=== PATIENT | male | born 1945 | race Caucasian/White ===

== ENCOUNTER 2019-11-18 15:05 | Outpatient (CLI) | payer OTHER | END 2019-11-18 15:06 | disposition short-term general hospital (02) | LOC: EMS 15:05 | PROVIDERS: ATTEND Surgery | DX: S09.90XA Unspecified injury of head, initial encounter (principal); R41.82 Altered mental status, unspecified; W19.XXXA Unspecified fall, initial encounter | CPT/HCPCS: A0425; A0429 ==

== ENCOUNTER 2020-09-11 10:21 | Emergency (ER) | payer OTHER ==
[2020-09-11 11:23] VITALS: BP 130/80
[2020-09-11 11:24] LABS: MUDS CUTOFF CONCENTRATIONS CUTOFF CONC BELOW:
[2020-09-11 11:26] LABS: BASOPHILS # (AUTO) 0.1 10^3/uL (0.0-0.1); BASOPHILS % (AUTO) 0.6 %; EOSINOPHILS # (AUTO) 0.3 10^3/uL (0.0-0.7); EOSINOPHILS % (AUTO) 2.1 %; HGB - HEMOGLOBIN 16.8 g/dL (14.0-18.0); LYMPHOCYTES % (AUTO) 7.5 %; MEAN CORPUSCULAR HEMOGLOBIN 32.4 pg (27.0-31.0); MEAN CORPUSCULAR HGB CONC 34.4 g/dL (32.0-36.0); MEAN PLATELET VOLUME 9.1 fL (7.4-11.4); MONOCYTES # (AUTO) 1.3 10^3/uL (0.0-1.0); MONOCYTES % (AUTO) 10.2 %; NEUTROPHILS % (AUTO) 79.1 %; PLT - PLATELET COUNT 174 10^3/uL (130-450); RED BLOOD COUNT 5.19 10^6/uL (4.70-6.10); RED CELL DISTRIBUTION WIDTH 11.9 % (12.0-15.0); WHITE BLOOD COUNT 12.6 x10^3/uL (4.8-10.8)
[2020-09-11 11:28] LABS: BILIRUBIN,URINE NEGATIVE (NEGATIVE); GLUCOSE, URINE (UA) NEGATIVE (NEGATIVE); KETONES,URINE (UA) NEGATIVE (NEGATIVE); LEUKOCYTE ESTERASE, URINE NEGATIVE (NEGATIVE); NITRITE,URINE NEGATIVE (NEGATIVE); OCCULT BLOOD,URINE NEGATIVE (NEGATIVE); PH,URINE 6.5 PH (5.0-7.5); PROTEIN,URINE NEGATIVE (NEGATIVE); UROBILINOGEN,URINE 0.2 (NORMAL) E.U./dL (NORMAL)
[2020-09-11 11:33] LABS: CLARITY,URINE CLEAR (CLEAR)
[2020-09-11 11:37] LABS: AMPHETAMINE SCREEN,URINE NEGATIVE (NEGATIVE); BENZODIAZEPINES SCREEN, URINE NEGATIVE (NEGATIVE); COCAINE SCREEN URINE NEGATIVE (NEGATIVE); METHADONE SCREEN, URINE NEGATIVE (NEGATIVE); METHAMPHETAMINES SCREEN, URINE NEGATIVE (NEGATIVE); OPIATE SCREEN, URINE NEGATIVE (NEGATIVE); OXYCODONE SCREEN, URINE NEGATIVE (NEGATIVE); PROPOXYPHENE SCREEN, URINE NEGATIVE (NEGATIVE); TRICYCLIC ANTIDEPRESSANT,URINE NEGATIVE (NEGATIVE)
[2020-09-11 11:46] LABS: ACETAMINOPHEN < 10 ug/mL (10-30); ALBUMIN 4.2 g/dL (3.2-5.5); ALBUMIN/GLOBULIN RATIO 1.1 (1.0-2.2); ALKALINE PHOSPHATASE 91 IU/L (42-121); ALT ALANINE AMINOTRANSFERASE 19 IU/L (10-60); AST ASPARTATE AMINOTRANSFERASE 29 IU/L (10-42); BILIRUBIN,TOTAL 0.9 mg/dL (0.2-1.0); BUN - BLOOD UREA NITROGEN 12 mg/dL (6-20); CALCIUM 9.6 mg/dL (8.5-10.3); CARBON DIOXIDE - CO2 28 mmol/L (21-32); CHLORIDE 96 mmol/L (101-111); CREATININE 1.1 mg/dL (0.6-1.2); GLUCOSE 98 mg/dL (70-100); LIPASE 37 U/L (22-51); SALICYLATE < 6.0 mg/dL; SODIUM 137 mmol/L (135-145); TOTAL PROTEIN 8.2 g/dL (6.7-8.2)
--- NOTE | 2020-09-11 12:31 | ED Physician Documentation ---
History of Present Illness - Stated complaint Stated Complaint: MHE - Chief complaint Chief Complaint: MHE - History obtained from History obtained from: Patient - Additonal information Additional information: 75-year-old man with past medical history of depression, PTSD presents with passive suicidal ideation over the past couple days. He states that his was just in the hospital last week and initially they thought she was not going to live, however she was able to be discharged home. During her hospitalization he stayed up with her and did not sleep adequately at night for the past 4 days. After discharge he continued to have difficulty sleeping. He also is endorsing thought disturbances with persistent anxiety and depression, feeling Like he wants to but without any active plan. He says that he had these thoughts in the past and that his mental health professional advised to take their firearms from the home which they did. Patient denies AVH or homicidal ideation. Denies any other symptoms. Review of Systems Ten Systems: 10 systems reviewed and negative Psychiatric: reports: Depressed, Suicidal PD PAST MEDICAL HISTORY - Past Medical History Past Medical History: Yes Cardiovascular: Hypertension, High cholesterol Psych: Post traumatic stress disorder - Past Surgical History Past Surgical History: Yes General: Other Cardiovascular: Coronary stent - Present Medications Home Medications: Ambulatory Orders Medication Instructions Recorded Confirmed Aspirin [Aspir-Low] 81 mg PO DAILY 11/18/15 09/11/20 Atorvastatin Calcium 80 mg PO DAILY 11/18/15 09/11/20 Calcium Citrate/Vitamin D3 [[facility] 1 tab PO BID 11/18/15 09/11/20 Calcium Citrate-Vit D Tab] Citalopram [CeleXA] 40 mg PO DAILY 11/18/15 09/11/20 Levetiracetam [Keppra] 750 mg PO BID 11/18/15 09/11/20 Metoprolol Tartrate 12.5 mg PO BID 11/18/15 09/11/20 Omeprazole 20 mg PO DAILY 11/18/15 09/11/20 lisinopriL [Lisinopril] 5 mg PO DAILY 11/18/15 09/11/20 Meclizine [Antivert] 25 mg PO Q6H PRN #20 tablet 11/19/15 09/11/20 Clobetasol 0.05% Oint [Temovate 1 applic TOP PRN PRN 09/11/20 09/11/20 0.05% Oint] Ibuprofen [Motrin] 600 mg PO Q6H PRN 09/11/20 09/11/20 Melatonin/Pyridoxine [Melatonin 5 1 each PO QPM PRN 30 Days #30 09/11/20 mg Tablet] tablet Sildenafil Citrate [Viagra] 100 mg PO ONCE PRN 09/11/20 09/11/20 Simethicone [Gas Relief] 180 mg PO PRN PRN 09/11/20 09/11/20 Sodium Fluoride [Prevident 5000] 1 applic TOP DAILY PM 09/11/20 09/11/20 - Allergies Allergies/Adverse Reactions: Allergies Allergy/AdvReac Type Severity Reaction Status Date / Time fluoxetine AdvReac Anxiety Verified 09/11/20 10:39 oxycodone HCl * AdvReac Hallucinati Verified 09/11/20 10:39 [From OxyContin] ons - Social History Does the pt smoke?: No Smoking Status: Never smoker Does the pt drink ETOH?: No Does the pt have substance abuse?: Yes - Immunizations Immunizations are current?: Yes - POLST Patient has POLST: Yes PD ED PE NORMAL - Vitals Vital signs reviewed: Yes - General General: Alert and oriented X 3 - HEENT HEENT: Atraumatic, PERRL, EOMI - Neck Neck: Supple, no meningeal sign - Cardiac Cardiac: RRR - Respiratory Respiratory: No respiratory distress, Clear bilaterally - Abdomen Abdomen: Non tender, Non distended - Male Male : Deferred - Rectal Rectal: Deferred - Derm Derm: Normal color - Extremities Extremities: No edema - Neuro Neuro: Alert and oriented X 3 - Psych Psych: Other (good insight. normal affect. mood described as depressed) Results - Vitals Vitals: Vital Signs - 24 hr 09/11/20 09/11/20 10:25 10:38 Temperature 36.0 C L Heart Rate 75 76 Respiratory 16 15 Rate Blood Pressure 134/80 H 130/80 O2 Saturation 96 99 Oxygen O2 Source Room air - EKG (time done) 1142 Rate: Rate (enter#) (71) Rhythm: NSR Intervals: Normal [place] QRS: Normal Ischemia: Other (benign early repol) - Labs Labs: Laboratory Tests 09/11/20 09/11/20 09/11/20 11:13 11:20 11:20 WBC 12.6 H RBC 5.19 Hgb 16.8 Hct 48.8 MCV 94.0 MCH 32.4 H MCHC 34.4 RDW 11.9 L Plt Count 174 MPV 9.1 Neut # (Auto) 10.0 H Lymph # (Auto) 1.0 L [place] # (Auto) 1.3 H Eos # (Auto) 0.3 Baso # (Auto) 0.1 Absolute Nucleated RBC 0.00 Nucleated RBC % 0.0 Sodium 137 Potassium 4.2 Chloride 96 L Carbon Dioxide 28 Anion Gap 13.0 BUN 12 Creatinine 1.1 Estimated GFR (MDRD) 65 L Glucose 98 Calcium 9.6 Total Bilirubin 0.9 AST 29 ALT 19 Alkaline Phosphatase 91 Total Protein 8.2 Albumin 4.2 Globulin 4.0 Albumin/Globulin Ratio 1.1 Lipase 37 TSH Urine Color DARK YELLOW Urine Clarity CLEAR Urine pH 6.5 Ur Specific [place] 1.020 Urine Protein NEGATIVE Urine Glucose (UA) NEGATIVE Urine Ketones NEGATIVE Urine Occult Blood NEGATIVE Urine Nitrite NEGATIVE Urine Bilirubin NEGATIVE Urine Urobilinogen 0.2 (NORMAL) Ur Leukocyte Esterase NEGATIVE Ur Microscopic Review NOT INDICATED Urine Culture Comments NOT INDICATED Salicylates < 6.0 Urine Opiates Screen NEGATIVE Ur Oxycodone Screen NEGATIVE Urine Methadone Screen NEGATIVE Ur Propoxyphene Screen NEGATIVE Acetaminophen < 10 L Ur Barbiturates Screen NEGATIVE Ur Tricyclics Screen NEGATIVE Ur Phencyclidine Scrn NEGATIVE Ur Amphetamine Screen NEGATIVE U Methamphetamines Scrn NEGATIVE U Benzodiazepines Scrn NEGATIVE Urine Cocaine Screen NEGATIVE U Cannabinoids Screen NEGATIVE Ethyl Alcohol < 5.0 09/11/20 11:20 WBC RBC Hgb Hct MCV MCH MCHC RDW Plt Count MPV Neut # (Auto) Lymph # (Auto) [place] # (Auto) Eos # (Auto) Baso # (Auto) Absolute Nucleated RBC Nucleated RBC % Sodium Potassium Chloride Carbon Dioxide Anion Gap BUN Creatinine Estimated GFR (MDRD) Glucose Calcium Total Bilirubin AST ALT Alkaline Phosphatase Total Protein Albumin Globulin Albumin/Globulin Ratio Lipase TSH 1.16 Urine Color Urine Clarity Urine pH Ur Specific [place] Urine Protein Urine Glucose (UA) Urine Ketones Urine Occult Blood Urine Nitrite Urine Bilirubin Urine Urobilinogen Ur Leukocyte Esterase Ur Microscopic Review Urine Culture Comments Salicylates Urine Opiates Screen Ur Oxycodone Screen Urine Methadone Screen Ur Propoxyphene Screen Acetaminophen Ur Barbiturates Screen Ur Tricyclics Screen Ur Phencyclidine Scrn Ur Amphetamine Screen U Methamphetamines Scrn U Benzodiazepines Scrn Urine Cocaine Screen U Cannabinoids Screen Ethyl Alcohol PD MEDICAL DECISION MAKING - ED course ED course: 75-year-old man with history of PTSD on citalopram presented with suicidal ideat ion without a plan. Discussed at length with social work who provided extensive resources for outpatient counseling. Patient endorsing that he thinks this is all related to insomnia. Will give prescription for melatonin. Strict return precautions given. Patient contracts for safety and there are no firearms in the home. Follow-up outpatient mental health. Departure - Departure Disposition: Home, Self Care Clinical Impression: Depression, PTSD (post-traumatic stress disorder), Sleep deprivation Condition: Good Instructions: ED Depression Prescriptions: Melatonin/Pyridoxine [Melatonin 5 mg Tablet] 1 each PO QPM PRN 30 Days #30 tablet PRN Reason: Insomnia
== END 2020-09-11 13:50 | disposition home or self-care (01) ==
LOC: ED 10:21
DX: F32.9 Major depressive disorder, single episode, unspecified (principal); R45.851 Suicidal ideations; F43.10 Post-traumatic stress disorder, unspecified; F41.9 Anxiety disorder, unspecified; Z72.820 Sleep deprivation; I10 Essential (primary) hypertension; Z79.82 Long term (current) use of aspirin
CPT/HCPCS: 36415; 80053; 80306; 80307; 80320; 80329; 81001; 81003; 83690; 84443; 85025; 87086; 93005; 99281; 99283

== ENCOUNTER 2020-11-06 11:58 | Outpatient (CLI) | payer OTHER | END 2020-11-06 11:59 | disposition critical access hospital (66) | LOC: EMS 11:58 | PROVIDERS: ATTEND Emergency Medicine | DX: R13.10 Dysphagia, unspecified (principal) | CPT/HCPCS: A0425; A0429 ==

== ENCOUNTER 2020-11-06 12:20 | Emergency (ER) | payer OTHER ==
[2020-11-06] MEDS ORDERED: SODIUM CHLORIDE 0.9% 1,000 ML IV STA (12:27)
--- NOTE | 2020-11-06 12:29 | ED Physician Documentation ---
PD HPI CHEST PAIN - Stated complaint Stated Complaint: HARD TIME SWALLOWING - History obtained from History obtained from: Patient, EMS - Additional information Additional information: Progressively for the last 5 days this 75-year-old gentleman has had difficulty swallowing. He has a history of coronary disease with stenting, seizure disorder with no recent seizures, hypertension and hypercholesterolemia. He also has reflux. He was hospitalized for about a week at the [facility] may be a month ago, for presumed suicidal ideation. He has been under a lot of stress about that and related to his . For the last 5 days he feels like after he swallows anything, and it does not matter what, he feels like it gets stuck in the anterior left chest and he feels like he has to burp but cannot. There is no associated vomiting. He is scared to eat. Denies current chest pain or trouble breathing. No abdominal pain. He does have a history of reflux and GERD. Does not recall if he is ever had an upper endoscopy. Review of Systems Ten Systems: 10 systems reviewed and negative Constitutional: denies: Fever, Chills Cardiac: denies: Palpitations Respiratory: denies: Dyspnea, Cough GI: denies: Abdominal Pain, Nausea PD PAST MEDICAL HISTORY - Past Medical History Cardiovascular: Hypertension, High cholesterol Psych: Post traumatic stress disorder - Past Surgical History Past Surgical History: Yes General: Other Cardiovascular: Coronary stent - Present Medications Home Medications: Ambulatory Orders Medication Instructions Recorded Confirmed Aspirin [Aspir-Low] 81 mg PO DAILY 11/18/15 09/11/20 Atorvastatin Calcium 80 mg PO DAILY 11/18/15 09/11/20 Calcium Citrate/Vitamin D3 [[facility] 1 tab PO BID 11/18/15 09/11/20 Calcium Citrate-Vit D Tab] Citalopram [CeleXA] 40 mg PO DAILY 11/18/15 09/11/20 Levetiracetam [Keppra] 750 mg PO BID 11/18/15 09/11/20 Metoprolol Tartrate 12.5 mg PO BID 11/18/15 09/11/20 Omeprazole 20 mg PO DAILY 11/18/15 09/11/20 lisinopriL [Lisinopril] 5 mg PO DAILY 11/18/15 09/11/20 Meclizine [Antivert] 25 mg PO Q6H PRN #20 tablet 11/19/15 09/11/20 Clobetasol 0.05% Oint [Temovate 1 applic TOP PRN PRN 09/11/20 09/11/20 0.05% Oint] Ibuprofen [Motrin] 600 mg PO Q6H PRN 09/11/20 09/11/20 Melatonin/Pyridoxine [Melatonin 5 1 each PO QPM PRN 30 Days #30 09/11/20 mg Tablet] tablet Sildenafil Citrate [Viagra] 100 mg PO ONCE PRN 09/11/20 09/11/20 Simethicone [Gas Relief] 180 mg PO PRN PRN 09/11/20 09/11/20 Sodium Fluoride [Prevident 5000] 1 applic TOP DAILY PM 09/11/20 09/11/20 LORazepam [Ativan] 1 mg PO TID PRN #12 tab 11/06/20 - Allergies Allergies/Adverse Reactions: Allergies Allergy/AdvReac Type Severity Reaction Status Date / Time fluoxetine AdvReac Anxiety Verified 11/06/20 12:32 oxycodone HCl * AdvReac Hallucinati Verified 11/06/20 12:32 [From OxyContin] ons - Social History Does the pt smoke?: No Smoking Status: Never smoker Does the pt drink ETOH?: No Does the pt have substance abuse?: Yes - Immunizations Immunizations are current?: Yes - POLST Patient has POLST: Yes PD ED PE NORMAL - Vitals Vital signs reviewed: Yes - General General: Alert and oriented X 3, No acute distress - HEENT HEENT: PERRL, EOMI - Neck Neck: Supple, no meningeal sign, No bony TTP - Cardiac Cardiac: RRR, No murmur - Respiratory Respiratory: No respiratory distress, Clear bilaterally - Abdomen Abdomen: Soft, Non tender - Back Back: No CVA TTP, No spinal TTP - Derm Derm: Normal color, Warm and dry - Extremities Extremities: No edema, No calf tenderness / cord - Neuro Neuro: Alert and oriented X 3, Normal speech Results - Vitals Vitals: Vital Signs - 24 hr 11/06/20 11/06/20 11/06/20 12:32 12:34 12:48 Temperature 37.3 C 37.3 C Heart Rate 100 100 88 Respiratory 16 16 18 Rate Blood Pressure 129/100 H 129/100 H 111/85 H O2 Saturation 99 99 95 11/06/20 14:34 Temperature Heart Rate 70 Respiratory 16 Rate Blood Pressure 124/82 H O2 Saturation 99 Oxygen O2 Source Room air - EKG (time done) 1229 Rate: Rate (enter#) (88) Rhythm: NSR [place]: Normal Intervals: Normal [place] QRS: Normal Ischemia: Non specific changes Compare to prior EKG: Other (Appears to be J-point elevation that does not look ischemic in the anterior leads. Compared with EKG dated 09/11/2020 this is slightly increased, but looking at the different R wave progression this is likely due to lead placement.) Computer interpretation: Agree with computer - Labs Labs: Laboratory Tests 11/06/20 11/06/20 11/06/20 13:35 13:35 13:35 WBC 7.2 RBC 4.86 Hgb 15.3 Hct 46.0 MCV 94.7 H MCH 31.5 H MCHC 33.3 RDW 12.3 Plt Count 174 MPV 9.3 Neut # (Auto) 5.3 Lymph # (Auto) 1.1 L [place] # (Auto) 0.7 Eos # (Auto) 0.1 Baso # (Auto) 0.1 Absolute Nucleated RBC 0.00 Nucleated RBC % 0.0 Sodium 135 Potassium 3.8 Chloride 102 Carbon Dioxide 25 Anion Gap 8.0 BUN 11 Creatinine 0.9 Estimated GFR (MDRD) 82 L Glucose 87 Calcium 8.6 Total Bilirubin 0.9 AST 23 ALT 16 Alkaline Phosphatase 74 Troponin I High Sens 10.7 Total Protein 6.8 Albumin 3.7 Globulin 3.1 Albumin/Globulin Ratio 1.2 PD MEDICAL DECISION MAKING - ED course ED course: 75-year-old gentleman with history of tobacco abuse has had odynophagia with a sensation of having to burp after eating or taking his pills for the last several days. His examination is normal, and his labs do not suggest any significant dehydration or coronary insult. CT of the chest was done without obvious pathology of the esophagus, he did have incidental findings which were discussed with him and the need for follow-up was stressed. He will need to have an upper endoscopy and requests admission to the hospital to have this done but there is no indication for admission to the hospital or need for anything other than outpatient follow-up at this point. There is a large overlay of anxiety for which he is treated with Ativan as well. Departure - Departure Disposition: 01 Home, Self Care Clinical Impression: Odynophagia, Pulmonary nodule, Anxiety Condition: Good Record reviewed to determine appropriate education?: Yes Instructions: Dysphagia Tx Follow-Up: Juan Alberto Martinez MD [Provider Admit Priv/Credential] - Prescriptions: LORazepam [Ativan] 1 mg PO TID PRN #12 tab PRN Reason: Anxiety Comments: Your labs look good without any evidence of dehydration. Your CAT scan shows some pulmonary nodules, you need a repeat CAT scan in 6 months to reassess. Otherwise you do need to follow-up for an upper endoscopy and the on-call surgeon is listed on this form, call tomorrow for an appointment. Return if worsening.
[2020-11-06] MEDS ORDERED: IOVERSOL 320 100 ML VIAL IVP ONE ×2 (12:43→14:36)
[2020-11-06] MEDS ORDERED: IOPAMIDOL-300 50 ML VIAL ONE (12:43)
[2020-11-06 13:45] LABS: BASOPHILS # (AUTO) 0.1 10^3/uL (0.0-0.1); BASOPHILS % (AUTO) 0.7 %; EOSINOPHILS # (AUTO) 0.1 10^3/uL (0.0-0.7); EOSINOPHILS % (AUTO) 1.8 %; HGB - HEMOGLOBIN 15.3 g/dL (14.0-18.0); LYMPHOCYTES # (AUTO) 1.1 10^3/uL (1.5-3.5); LYMPHOCYTES % (AUTO) 14.5 %; MEAN CORPUSCULAR HEMOGLOBIN 31.5 pg (27.0-31.0); MEAN CORPUSCULAR HGB CONC 33.3 g/dL (32.0-36.0); MEAN CORPUSCULAR VOLUME 94.7 fL (80.0-94.0); MEAN PLATELET VOLUME 9.3 fL (7.4-11.4); MONOCYTES # (AUTO) 0.7 10^3/uL (0.0-1.0); NEUTROPHILS # (AUTO) 5.3 10^3/uL (1.5-6.6); NEUTROPHILS % (AUTO) 73.7 %; PLT - PLATELET COUNT 174 10^3/uL (130-450); RED BLOOD COUNT 4.86 10^6/uL (4.70-6.10); RED CELL DISTRIBUTION WIDTH 12.3 % (12.0-15.0); WHITE BLOOD COUNT 7.2 x10^3/uL (4.8-10.8)
[2020-11-06 13:56] LABS: ALBUMIN 3.7 g/dL (3.2-5.5); ALBUMIN/GLOBULIN RATIO 1.2 (1.0-2.2); BILIRUBIN,TOTAL 0.9 mg/dL (0.2-1.0); CALCIUM 8.6 mg/dL (8.5-10.3); CREATININE 0.9 mg/dL (0.6-1.2); TOTAL PROTEIN 6.8 g/dL (6.7-8.2)
[2020-11-06] MEDS ORDERED: IOPAMIDOL-300 50 ML VIAL PO ONE (14:36)
--- NOTE | 2020-11-06 15:24 | CT Report ---
PROCEDURE: CHEST W INDICATIONS: IV and PO just before scan, CP, diff swallowing CONTRAST: IV CONTRAST: Optiray 320 ml: 100 PO CONTRAST: Isovue 300 ml50 TECHNIQUE: After the administration of intravenous contrast, 5 mm thick sections acquired from the pulmonary api demarco to the posterior costophrenic angles. 7 mm thick coronal MIP reformats were acquired. For radia tion dose reduction, the following was used: automated exposure control, adjustment of mA and/or kV according to patient size. COMPARISON: Single view chest x-ray 01/26/2011. FINDINGS: Image quality: Excellent. Lungs and pleura: No consolidation. 1.0 cm groundglass nodule noted in the right upper lobe. No pleur al effusions or pneumothorax. Central and peripheral airways are patent and normal in caliber. Mediastinum: Heart size is normal. Atherosclerotic calcifications noted in the aorta, great vessels and coronary vasculature. 7 mm subpleural nodule noted in the lateral aspect of the lingula of left u pper lobe. Atelectasis noted in the dependent portion of the bases bilaterally. No pericardial effusi on. No mediastinal or hilar adenopathy by size criteria. Thoracic aorta and central pulmonary arter ies are normal in size. Esophagus is normal in caliber. No hiatal hernia. Bones and chest wall: No suspicious bony lesions. No vertebral body compression fractures. Spine de generative disc disease and facet arthropathy are noted. No axillary or supraclavicular adenopathy b y size criteria. Thyroid gland is normal. Abdomen: Left renal cysts. Diffuse fatty infiltration of the visualized liver. Visualized upper abdo donell solid organs otherwise appear normal. Upper abdominal bowel loops are normal in caliber. IMPRESSION: 1. No lung consolidation or pleural effusions. 2. 1 cm groundglass nodule in the right upper lobe which could be inflammatory/infectious or neoplast ic. Recommend repeat CT scan of the chest in 6-12 months based on criteria outlined below. 3. 7 mm solid nodule in the lingula of the left upper lobe. Recommend reevaluation at time of follow- up CT scan. 4. Atherosclerosis including dense atherosclerotic calcifications in the coronary vascula ture. 5. Hepatic steatosis. 6. Left renal cysts. 7. Atherosclerosis including dense atherosclerotic calcifications of the coronary vasculature. Fleischner Society criteria for lung nodule followup. Solid nodules Solitary nodule size: <6 mm * low risk patients: no follow-up needed * high risk patients: optional CT at 12 months Solitary nodule size: 6-8 mm * low risk patients: follow-up at 6-12 months, then consider further follow-up at 18-24 months * high risk patients: initial follow-up CT at 6-12 months and then at 18-24 months if no change Solitary nodule size: >8 mm * either low or high risk patients * consider follow-up CT at 3 months, and/or CT-PET, and/or biopsy Multiple nodules size: <6 mm * low risk patients: no routine follow-up * high risk patients: optional CT at 12 months Multiple nodules size: 6-8 mm * low risk patients: follow-up at 3-6 months, then consider further follow-up at 18-24 months * high risk patients: follow-up at 3-6 months, then at 18-24 months if no change Multiple nodules size: >8 mm * low risk patients: follow-up at 3-6 months, then consider further follow-up at 18-24 months * high risk patients: follow-up at 3-6 months, then at 18-24 months if no change Subsolid nodules Solitary pure ground-glass nodule * nodule size <6mm * no CT follow-up required * nodule size ?6mm * follow up CT at 6-12 months, then every 2 years until 5 years Solitary part-solid nodule * nodule size <6mm * no CT follow-up required * nodule size ?6mm * follow-up CT at 3-6 months * if unchanged, and solid component remains <6mm, then annual follow-up for 5 years Multiple subsolid nodules * nodule size <6mm * follow-up CT at 3-6 months * consider further follow-up at 2 and 4 years if stable * nodule size ?6mm * follow-up CT at 3-6 months * subsequent management based on the most suspicious nodule(s) Recommendations do not apply to lung cancer screening, patient's with immunosuppression or patients w ith known primary cancer. Reviewed by: Oly Roberts MD, PhD on 11/06/2020 3:23 PM PST Approved by: Oly Roberts MD, PhD on 11/06/2020 3:23 PM PST Station ID: [id number]
[2020-11-06] MEDS ORDERED: LORazepam 1 MG TABLET PO STA (15:58)
[2020-11-06 16:10] VITALS: BP 140/68
== END 2020-11-06 16:30 | disposition home or self-care (01) ==
LOC: EDUNIT# → ED 12:20
DX: R13.10 Dysphagia, unspecified (principal); R91.8 Other nonspecific abnormal finding of lung field; F41.9 Anxiety disorder, unspecified; I10 Essential (primary) hypertension; I25.10 Atherosclerotic heart disease of native coronary artery without angina pectoris; Z95.5 Presence of coronary angioplasty implant and graft; E78.00 Pure hypercholesterolemia, unspecified; K21.9 Gastro-esophageal reflux disease without esophagitis; G40.909 Epilepsy, unspecified, not intractable, without status epilepticus; Z87.891 Personal history of nicotine dependence; Z79.82 Long term (current) use of aspirin
CPT/HCPCS: 36415; 71260; 80053; 84484; 85025; 93005; 99284; J8499; Q9967

== ENCOUNTER 2020-11-18 10:20 | Emergency (ER) | payer OTHER ==
[2020-11-18 10:35] VITALS: BP 125/80
[2020-11-18 11:12] LABS: BASOPHILS # (AUTO) 0.1 10^3/uL (0.0-0.1); BASOPHILS % (AUTO) 0.8 %; EOSINOPHILS # (AUTO) 0.2 10^3/uL (0.0-0.7); EOSINOPHILS % (AUTO) 2.7 %; HCT - HEMATOCRIT 42.9 % (42.0-52.0); HGB - HEMOGLOBIN 14.8 g/dL (14.0-18.0); LYMPHOCYTES % (AUTO) 14.6 %; MEAN CORPUSCULAR HEMOGLOBIN 32.6 pg (27.0-31.0); MEAN CORPUSCULAR HGB CONC 34.5 g/dL (32.0-36.0); MEAN CORPUSCULAR VOLUME 94.5 fL (80.0-94.0); MEAN PLATELET VOLUME 9.4 fL (7.4-11.4); MONOCYTES # (AUTO) 0.6 10^3/uL (0.0-1.0); MONOCYTES % (AUTO) 8.7 %; NEUTROPHILS # (AUTO) 5.2 10^3/uL (1.5-6.6); NEUTROPHILS % (AUTO) 72.8 %; PLT - PLATELET COUNT 177 10^3/uL (130-450); RED BLOOD COUNT 4.54 10^6/uL (4.70-6.10); RED CELL DISTRIBUTION WIDTH 12.2 % (12.0-15.0); WHITE BLOOD COUNT 7.1 x10^3/uL (4.8-10.8)
--- NOTE | 2020-11-18 11:15 | ED Physician Documentation ---
PD HPI NVD - Stated complaint Stated Complaint: UNABLE TO EAT - Chief complaint Chief Complaint: Abd Pain - History obtained from History obtained from: Patient, Family - History of Present Illness Timing - onset: How many months ago (3) Timing - duration: Months (3) Timing - details: Gradual onset, Still present (worse the past week.) Associated symptoms: Chest pain (states has tightness and discomfort when trying to eat or even drink fluids.), Weight loss (he states lost 60 lbs over the past 3 months.). No: Fever, Abdominal pain Contributing factors: No: Sick contact, Bad food, Diabetes Improved by: No: Eating, Meds (had done enema at home, with some mild stool out (firm chunk, but feeling that there is still some at rectum).) Worsened by: Eating Similar symptoms before: Has not had sx before Recently seen: Emergency Dept (seen in ER with CT chest without soft tissue findings. Seen in follow up at Surgery, Dr. Manzano, and is schedules for barium swallow on and EGD on of this month.) Review of Systems Constitutional: denies: Fever, Chills Nose: denies: Rhinorrhea / runny nose, Congestion Throat: denies: Sore throat Cardiac: reports: Chest pain / pressure (with eating in lower substernal area.). denies: Palpitations Respiratory: denies: Dyspnea, Cough GI: reports: Nausea, Vomiting, Constipation (for the past month). denies: Abdominal Pain, Diarrhea Neurologic: reports: Generalized weakness. denies: Near syncope, Altered mental status Psychiatric: reports: Depressed (feeling stress with his having been in hospital then care facility for rehab the past few months. home recently and is also stressed of caring for her. No home health aides. Has home visint nurse couple times per week (for his ).), Anxiety, Insomnia Endocrine: reports: Weight loss. denies: Weight gain Immunocompromised: denies: Immunocompromised PD PAST MEDICAL HISTORY - Past Medical History Past Medical History: Yes Cardiovascular: Hypertension, High cholesterol Respiratory: None Neuro: None Endocrine/Autoimmune: None Psych: Post traumatic stress disorder - Past Surgical History Past Surgical History: Yes General: Other Cardiovascular: Coronary stent - Present Medications Home Medications: Ambulatory Orders Medication Instructions Recorded Confirmed Aspirin [Aspir-Low] 81 mg PO DAILY 11/18/15 09/11/20 Atorvastatin Calcium 80 mg PO DAILY 11/18/15 09/11/20 Calcium Citrate/Vitamin D3 [[facility] 1 tab PO BID 11/18/15 09/11/20 Calcium Citrate-Vit D Tab] Citalopram [CeleXA] 40 mg PO DAILY 11/18/15 09/11/20 Levetiracetam [Keppra] 750 mg PO BID 11/18/15 09/11/20 Metoprolol Tartrate 12.5 mg PO BID 11/18/15 09/11/20 Omeprazole 20 mg PO DAILY 11/18/15 09/11/20 lisinopriL [Lisinopril] 5 mg PO DAILY 11/18/15 09/11/20 Meclizine [Antivert] 25 mg PO Q6H PRN #20 tablet 11/19/15 09/11/20 Clobetasol 0.05% Oint [Temovate 1 applic TOP PRN PRN 09/11/20 09/11/20 0.05% Oint] Ibuprofen [Motrin] 600 mg PO Q6H PRN 09/11/20 09/11/20 Melatonin/Pyridoxine [Melatonin 5 1 each PO QPM PRN 30 Days #30 09/11/20 mg Tablet] tablet Sildenafil Citrate [Viagra] 100 mg PO ONCE PRN 09/11/20 09/11/20 Simethicone [Gas Relief] 180 mg PO PRN PRN 09/11/20 09/11/20 Sodium Fluoride [Prevident 5000] 1 applic TOP DAILY PM 09/11/20 09/11/20 LORazepam [Ativan] 1 mg PO TID PRN #12 tab 11/06/20 Famotidine [Pepcid] 20 mg PO DAILY #20 tablet 11/18/20 LORazepam [Ativan] 1 mg PO QPM PRN #10 tablet 11/18/20 Mag Hydrox/Aluminum Hyd/Simeth 15 ml PO QID 7 Days #1 bottle 11/18/20 [Mylanta Maximum Strength Liq] Metoclopramide [Reglan] 5 mg PO BID #10 tablet 11/18/20 - Allergies Allergies/Adverse Reactions: Allergies Allergy/AdvReac Type Severity Reaction Status Date / Time fluoxetine AdvReac Anxiety Verified 11/18/20 10:36 oxycodone HCl * AdvReac Hallucinati Verified 11/18/20 10:36 [From OxyContin] ons - Social History Does the pt smoke?: No Smoking Status: Never smoker Does the pt drink ETOH?: No Does the pt have substance abuse?: Yes - Immunizations Immunizations are current?: Yes - POLST Patient has POLST: Yes PD ED PE NORMAL - Vitals Vital signs reviewed: Yes - General General: Alert and oriented X 3, No acute distress, Well developed/nourished - HEENT HEENT: Ears normal, Pharynx benign. No: Moist mucous membranes - Neck Neck: Supple, no meningeal sign, No adenopathy - Cardiac Cardiac: RRR, No murmur - Respiratory Respiratory: Clear bilaterally - Abdomen Abdomen: Normal bowel sounds, Soft, Non tender, Non distended, No organomegaly - Male Male : Deferred - Rectal Rectal: Other (rectal vault empty. Normal colored mild stool. ) Results - Vitals Vitals: Vital Signs - 24 hr 11/18/20 10:29 Temperature 36.2 C L Heart Rate 59 L Respiratory 16 Rate Blood Pressure 125/80 O2 Saturation 96 Oxygen O2 Source Room air - Labs Labs: Laboratory Tests 11/18/20 11/18/20 11/18/20 11:08 11:08 11:08 WBC 7.1 RBC 4.54 L Hgb 14.8 Hct 42.9 MCV 94.5 H MCH 32.6 H MCHC 34.5 RDW 12.2 Plt Count 177 MPV 9.4 Neut # (Auto) 5.2 Lymph # (Auto) 1.0 L [place] # (Auto) 0.6 Eos # (Auto) 0.2 Baso # (Auto) 0.1 Absolute Nucleated RBC 0.00 Nucleated RBC % 0.0 Sodium 141 Potassium 4.9 Chloride 103 Carbon Dioxide 29 Anion Gap 9.0 BUN 13 Creatinine 1.2 Estimated GFR (MDRD) 59 L Glucose 110 H Calcium 9.2 Magnesium 2.2 Total Bilirubin 0.8 AST 30 ALT 18 Alkaline Phosphatase 64 Total Protein 6.8 Albumin 3.9 Globulin 2.9 Albumin/Globulin Ratio 1.3 Lipase 27 TSH Urine Color Urine Clarity Urine pH Ur Specific [place] Urine Protein Urine Glucose (UA) Urine Ketones Urine Occult Blood Urine Nitrite Urine Bilirubin Urine Urobilinogen Ur Leukocyte Esterase Ur Microscopic Review Urine Culture Comments 11/18/20 11/18/20 11:08 11:25 WBC RBC Hgb Hct MCV MCH MCHC RDW Plt Count MPV Neut # (Auto) Lymph # (Auto) Centre # (Auto) Eos # (Auto) Baso # (Auto) Absolute Nucleated RBC Nucleated RBC % Sodium Potassium Chloride Carbon Dioxide Anion Gap BUN Creatinine Estimated GFR (MDRD) Glucose Calcium Magnesium Total Bilirubin AST ALT Alkaline Phosphatase Total Protein Albumin Globulin Albumin/Globulin Ratio Lipase TSH 1.42 Urine Color YELLOW Urine Clarity CLEAR Urine pH 8.5 H Ur Specific [place] 1.020 Urine Protein NEGATIVE Urine Glucose (UA) NEGATIVE Urine Ketones NEGATIVE Urine Occult Blood NEGATIVE Urine Nitrite NEGATIVE Urine Bilirubin NEGATIVE Urine Urobilinogen 0.2 (NORMAL) Ur Leukocyte Esterase NEGATIVE Ur Microscopic Review NOT INDICATED Urine Culture Comments NOT INDICATED PD MEDICAL DECISION MAKING - ED course Complexity details: reviewed old records (recent CT chest without findings. Does not have abd tenderness, so I do not feel CT abd would add info. EGD is next step. Pt scheduled with Dr. Manzano for EGD . I talked with Dr. Martinez, teletypesetter monitor, who will work to get pt EGD sooner, perhaps this coming week (he is doing scopes on ).), reviewed results (labs are good, with normal CR/lytes, so not seem too dehydrated. ), considered differential, d/w patient Departure - Departure Disposition: 01 Home, Self Care Clinical Impression: Odynophagia, Anxiety, Weight loss Depression Qualifiers: Depression Type: unspecified Qualified Code(s): F32.9 - Major depressive disorder, single episode, unspecified Condition: Stable Record reviewed to determine appropriate education?: Yes Follow-Up: Wendie Manzano MD [Provider Admit Priv/Credential] - Prescriptions: LORazepam [Ativan] 1 mg PO QPM PRN #10 tablet PRN Reason: Insomnia Mag Hydrox/Aluminum Hyd/Simeth [Mylanta Maximum Strength Liq] 15 ml PO QID 7 Days #1 bottle Famotidine [Pepcid] 20 mg PO DAILY #20 tablet Metoclopramide [Reglan] 5 mg PO BID #10 tablet Comments: More frequent fluids and protein supplements such as Ensure to help with nutrition. Sometimes symptoms such as yours can be from irritation of the esophagus from acid reflux. Take famotidine daily for the next couple of weeks. Antacids such as Mylanta which has simethicone for gas as well 4 times a day. And Reglan twice daily to try to help with improved outflow from the stomach. Lorazepam at night is a to help with sleep. Suggest following up with counseling with the resources provided by the social psychologist, call for an appointment. Also the social psychologist gave you information regarding home health aide to help with you and your . I talked with the on-call surgeon. Contact the surgery office and amongst the surgeons, one of them should be able to get you in for a scope sooner than the planned date of the . This would likely be as soon as this coming week, possibly on Saturday. Call the office for rescheduling of the scope and instructions. Discharge Date/Time: 11/18/20 14:08
[2020-11-18 11:25] LABS: ALBUMIN 3.9 g/dL (3.2-5.5); ALBUMIN/GLOBULIN RATIO 1.3 (1.0-2.2); BILIRUBIN,TOTAL 0.8 mg/dL (0.2-1.0); CALCIUM 9.2 mg/dL (8.5-10.3); CREATININE 1.2 mg/dL (0.6-1.2); POTASSIUM 4.9 mmol/L (3.5-5.0); TOTAL PROTEIN 6.8 g/dL (6.7-8.2)
[2020-11-18 11:42] LABS: BILIRUBIN,URINE NEGATIVE (NEGATIVE); GLUCOSE, URINE (UA) NEGATIVE (NEGATIVE); KETONES,URINE (UA) NEGATIVE (NEGATIVE); LEUKOCYTE ESTERASE, URINE NEGATIVE (NEGATIVE); NITRITE,URINE NEGATIVE (NEGATIVE); OCCULT BLOOD,URINE NEGATIVE (NEGATIVE); PH,URINE 8.5 PH (5.0-7.5); PROTEIN,URINE NEGATIVE (NEGATIVE); UROBILINOGEN,URINE 0.2 (NORMAL) E.U./dL (NORMAL)
[2020-11-18 11:47] LABS: CLARITY,URINE CLEAR (CLEAR)
[2020-11-18] MEDS ORDERED: SODIUM CHLORIDE 0.9% 1,000 ML IV STA ×2 (12:05→12:06)
[2020-11-18] MEDS ORDERED: FAMOTIDINE 20 MG/2 ML VIAL IVP STA (12:06)
[2020-11-18] MEDS ORDERED: LORazepam 2 MG/ML VIAL IVP STA (12:06)
[2020-11-18] MEDS ORDERED: MAG HYDROX/AL HYDROX/SIMETH 30 ML UDC PO STA (12:06)
[2020-11-18] MEDS ORDERED: MINERAL OIL ENEMA 133 ML BOTTLE RC STA (12:08)
== END 2020-11-18 14:08 | disposition home or self-care (01) ==
LOC: ED 10:20
DX: R63.4 Abnormal weight loss (principal); R13.10 Dysphagia, unspecified; F41.9 Anxiety disorder, unspecified; F32.9 Major depressive disorder, single episode, unspecified; I10 Essential (primary) hypertension
CPT/HCPCS: 36415; 80053; 81003; 82652; 83690; 83735; 84443; 85025; 96374; 96375; 99284; A9270; J2060; 81001; 87086

== ENCOUNTER 2020-11-22 08:46 | Day surgery (SDC) | payer MEDICARE, OTHER ==
[2020-11-22] MEDS ORDERED: LACTATED RINGERS 1,000 ML IV ONE ×2 (09:16→12:44)
--- NOTE | 2020-11-22 10:33 | ANESTHESIA ---
Pre-Anesthesia VS, & Labs - Diagnosis wt loss, dysphagia, odynophagia - Procedure EGD w/possible biopsies Vital Signs: Temp Pulse Resp BP Pulse Ox 36.6 C 63 18 117/77 97 11/22/20 09:18 11/22/20 09:18 11/22/20 09:18 11/22/20 09:18 11/22/20 09:18 Height: 6 ft 1 in Weight (kg): 88 kg Body Mass Index: 25.6 BMI Classification: Overweight - NPO Last Fluid Intake: sips with meds@0800 - Lab Results Lab results reviewed: Yes Home Medications and Allergies Aspirin [Aspir-Low] 81 mg PO DAILY 11/18/15 Atorvastatin Calcium 80 mg PO DAILY 11/18/15 Calcium Citrate/Vitamin D3 [[facility] Calcium Citrate-Vit D Tab] 1 tab PO BID 11/18/15 Citalopram [CeleXA] 40 mg PO DAILY 11/18/15 Levetiracetam [Keppra] 750 mg PO BID 11/18/15 Metoprolol Tartrate 12.5 mg PO BID 11/18/15 Omeprazole 20 mg PO DAILY 11/18/15 lisinopriL [Lisinopril] 5 mg PO DAILY 11/18/15 Clobetasol 0.05% Oint [Temovate 0.05% Oint] 1 applic TOP PRN PRN 09/11/20 Ibuprofen [Motrin] 600 mg PO Q6H PRN 09/11/20 Sildenafil Citrate [Viagra] 100 mg PO ONCE PRN 09/11/20 Simethicone [Gas Relief] 180 mg PO PRN PRN 09/11/20 Sodium Fluoride [Prevident 5000] 1 applic TOP DAILY PM 09/11/20 Allergies/Adverse Reactions: Allergies Allergy/AdvReac Type Severity Reaction Status Date / Time fluoxetine AdvReac Anxiety Verified 11/18/20 10:36 oxycodone HCl * AdvReac Hallucinati Verified 11/18/20 10:36 [From OxyContin] ons Anes History & Medical History - Anesthetic History Anesthesia Complications: reports: No previous complications Family history of Anesthesia Complications: Denies Family history of Malignant Hyperthermia: Denies - Medical History Cardiovascular: reports: Hypertension, High cholesterol, [place] Pulmonary: reports: None Gastrointestinal: reports: Other Urinary: reports: None Neuro: reports: None Musculoskeletal: reports: None Endocrine/Autoimmune: reports: None Skin: reports: None Smoking Status: Never smoker History of Cancer?: No - Surgical History General: reports: Other Cardiothoracic: reports: Coronary stent Exam General: Alert, Oriented x3, Cooperative Dental: WNL Mouth Openin Fingerbreadth Neck Mobility: Normal Mallampati classification: II Thyromental Distance: 4-6 cm Respiratory: Lungs clear, Normal breath sounds, No respiratory distress Cardiovascular: Regular rate Neurological: Normal speech Mental/Cognitive Status: Alert/Oriented X3, Normal for patient Cognitive Status: Within normal limits Plan Anesthesia Type: Total IV Consent for Procedure(s) Verified and Reviewed: Yes Code Status: Attempt Resuscitation ASA classification: 3-Severe systemic disease Is this case an emergency?: No
[2020-11-22 10:40] LABS: B. PARAPERTUSSIS- RESP PCR PAN NOT DETECTED; B. PERTUSSIS- RESP PCR PANEL NOT DETECTED; C. PNEUMONIAE- RESP PCR PANEL NOT DETECTED; CORONAVIRUS 229E-RESP PCR NOT DETECTED; CORONAVIRUS HKU1-RESP PCR NOT DETECTED; CORONAVIRUS NL63-RESP PCR NOT DETECTED; CORONAVIRUS OC43-RESP PCR NOT DETECTED; HUMAN METAPNEUMOVIRUS NOT DETECTED; INFLUENZA A- RESP PCR PANEL NOT DETECTED; INFLUENZA B - RESP PCR PANEL NOT DETECTED; M. PNEUMONIAE- RESP PCR PANEL NOT DETECTED; PARAINFLUENZA VIRUS 1 NOT DETECTED; PARAINFLUENZA VIRUS 2 NOT DETECTED; PARAINFLUENZA VIRUS 3 NOT DETECTED; PARAINFLUENZA VIRUS 4 NOT DETECTED; RHINOVIRUS/ENTEROVIRUS NOT DETECTED; RSV- RESP PCR PANEL NOT DETECTED; SARS-CoV-2 -RESP PCR PANEL NOT DETECTED
[2020-11-22] MEDS ORDERED: LIDOCAINE-MPF 2% 5 ML VIAL ONE (11:51)
[2020-11-22] MEDS ORDERED: PROPOFOL 200 MG/20 ML VIAL IVP ONE (11:51)
[2020-11-22 13:12] VITALS: BP 119/66
--- NOTE | 2020-11-22 13:43 | ANESTHESIA POST OP EVALUATION ---
Anesthesia Post Eval - Post Anesthesia Eval Vitals: Last Vital Signs Temp 36.5 C 11/22/20 13:09 Pulse 56 L 11/22/20 13:09 Resp 18 11/22/20 13:09 BP 119/66 11/22/20 13:09 Pulse Ox 100 11/22/20 13:09 CV Function Including HR & BP: positive: Stable Pain Control: positive: Satisfactory Nausea & Vomiting: positive: Negative Mental Status: positive: Baseline Respiratory Status: Airway Patent Hydration Status: Satisfactory Anesthesia Complications: positive: None
== END 2020-11-22 08:47 | disposition home or self-care (01) ==
LOC: SDS 08:46
PROVIDERS: ATTEND Surgery
PROC: 0DB48ZX Excision of Esophagogastric Junction, Via Natural or Artificial Opening Endoscopic, Diagnostic (ICD-10-PCS; principal; 2020-11-22 10:30)
DX: K21.00 Gastro-esophageal reflux disease with esophagitis, without bleeding (principal); K22.2 Esophageal obstruction; K29.70 Gastritis, unspecified, without bleeding; K29.80 Duodenitis without bleeding; I10 Essential (primary) hypertension; E78.00 Pure hypercholesterolemia, unspecified; I25.10 Atherosclerotic heart disease of native coronary artery without angina pectoris; F43.10 Post-traumatic stress disorder, unspecified; F41.9 Anxiety disorder, unspecified; F41.0 Panic disorder [episodic paroxysmal anxiety]; F17.290 Nicotine dependence, other tobacco product, uncomplicated; I25.2 Old myocardial infarction; Z20.822 Contact with and (suspected) exposure to COVID-19; E66.3 Overweight; Z68.25 Body mass index [BMI] 25.0-25.9, adult; Z79.82 Long term (current) use of aspirin; Z79.899 Other long term (current) drug therapy; Z95.5 Presence of coronary angioplasty implant and graft; Z86.73 Personal history of transient ischemic attack (TIA), and cerebral infarction without residual deficits
CPT/HCPCS: 43239; 87631; J7120; 0202U

== ENCOUNTER 2020-11-26 17:10 | Outpatient (CLI) | payer OTHER | END 2020-11-26 17:11 | disposition EMS.NT | LOC: EMS 17:10 | DX: R19.8 Other specified symptoms and signs involving the digestive system and abdomen (principal) ==

== ENCOUNTER 2020-12-03 14:06 | Emergency (ER) | payer MEDICARE, OTHER ==
[2020-12-03] MEDS ORDERED: SODIUM CHLORIDE 0.9% 1,000 ML IV STA (14:37)
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
[2020-12-03 15:14] LABS: BASOPHILS # (AUTO) 0.1 10^3/uL (0.0-0.1); BASOPHILS % (AUTO) 0.8 %; EOSINOPHILS # (AUTO) 0.3 10^3/uL (0.0-0.7); EOSINOPHILS % (AUTO) 3.6 %; HCT - HEMATOCRIT 44.5 % (42.0-52.0); HGB - HEMOGLOBIN 15.4 g/dL (14.0-18.0); LYMPHOCYTES # (AUTO) 1.4 10^3/uL (1.5-3.5); LYMPHOCYTES % (AUTO) 19.2 %; MEAN CORPUSCULAR HEMOGLOBIN 31.9 pg (27.0-31.0); MEAN CORPUSCULAR HGB CONC 34.6 g/dL (32.0-36.0); MEAN CORPUSCULAR VOLUME 92.1 fL (80.0-94.0); MONOCYTES # (AUTO) 0.8 10^3/uL (0.0-1.0); MONOCYTES % (AUTO) 10.6 %; NEUTROPHILS # (AUTO) 4.7 10^3/uL (1.5-6.6); NEUTROPHILS % (AUTO) 65.5 %; PLT - PLATELET COUNT 175 10^3/uL (130-450); RED BLOOD COUNT 4.83 10^6/uL (4.70-6.10); RED CELL DISTRIBUTION WIDTH 12.5 % (12.0-15.0); WHITE BLOOD COUNT 7.1 x10^3/uL (4.8-10.8)
[2020-12-03 15:28] LABS: ALBUMIN 3.8 g/dL (3.2-5.5); ALBUMIN/GLOBULIN RATIO 1.2 (1.0-2.2); CALCIUM 9.4 mg/dL (8.5-10.3); CREATININE 1.2 mg/dL (0.6-1.2); MAGNESIUM 2.2 mg/dL (1.7-2.8); PHOSPHORUS 2.8 mg/dL (2.5-4.6); POTASSIUM 3.8 mmol/L (3.5-5.0); TOTAL PROTEIN 7.1 g/dL (6.7-8.2)
[2020-12-03 15:54] LABS: BILIRUBIN,URINE NEGATIVE (NEGATIVE); GLUCOSE, URINE (UA) NEGATIVE (NEGATIVE); KETONES,URINE (UA) TRACE mg/dL (NEGATIVE); LEUKOCYTE ESTERASE, URINE NEGATIVE (NEGATIVE); NITRITE,URINE NEGATIVE (NEGATIVE); OCCULT BLOOD,URINE NEGATIVE (NEGATIVE); PROTEIN,URINE TRACE mg/dL (NEGATIVE); UROBILINOGEN,URINE 1 (NORMAL) E.U./dL (NORMAL)
[2020-12-03 15:56] LABS: CLARITY,URINE CLEAR (CLEAR)
[2020-12-03 16:17] VITALS: BP 131/75
== END 2020-12-03 16:55 | disposition home or self-care (01) ==
LOC: ED 14:06
DX: E86.0 Dehydration (principal); F32.9 Major depressive disorder, single episode, unspecified; F41.9 Anxiety disorder, unspecified; I10 Essential (primary) hypertension
CPT/HCPCS: 36415; 80053; 81001; 81003; 83690; 83735; 84100; 85025; 87086; 93005; 96360; 99283

== ENCOUNTER 2020-12-07 09:13 | Emergency (ER) | payer MEDICARE ==
--- NOTE | 2020-12-07 11:14 | ED Physician Documentation ---
History of Present Illness - Stated complaint Stated Complaint: UNABLE TO EAT/DRINK - Chief complaint Chief Complaint: Abd Pain - History obtained from History obtained from: Patient - Additonal information Additional information: 75yM with pmh esophageal reflux with scarring at LES as well as anatomic deformity causing chronic dysphagia presents with request for surgery to correct his issue. patient states he is depressed and can't deal with the burping and dysphagia any longer, feels overwhelmed at home, and "I need to get surgery today or I will harm myself". I discussed with patient and he denies active SI or plan, stating he has "too much to live for" but states he can't deal with his symptoms any longer. denies recent changes. does endorse mild constipation. last BM was hard stool a couple days ago. denies fevers, n/v abd pain urinary sx. denies HI/AVH. Review of Systems Ten Systems: 10 systems reviewed and negative Constitutional: denies: Fever Cardiac: denies: Chest pain / pressure Respiratory: denies: Dyspnea GI: reports: Abdominal Pain, Constipation. denies: Nausea, Vomiting, Diarrhea : denies: Dysuria PD PAST MEDICAL HISTORY - Past Medical History Past Medical History: Yes Cardiovascular: Hypertension, High cholesterol, [place] Respiratory: None Neuro: None Endocrine/Autoimmune: None GI: GERD : None HEENT: None Psych: Depression, Anxiety, Panic attacks, Post traumatic stress disorder Musculoskeletal: None Derm: None - Past Surgical History Past Surgical History: Yes General: Other Cardiovascular: Coronary stent - Present Medications Home Medications: Ambulatory Orders Medication Instructions Recorded Confirmed Aspirin [Aspir-Low] 81 mg PO DAILY 11/18/15 09/11/20 Atorvastatin Calcium 80 mg PO DAILY 11/18/15 09/11/20 Calcium Citrate/Vitamin D3 [[facility] 1 tab PO BID 11/18/15 09/11/20 Calcium Citrate-Vit D Tab] Citalopram [CeleXA] 40 mg PO DAILY 11/18/15 09/11/20 Levetiracetam [Keppra] 750 mg PO BID 11/18/15 09/11/20 Metoprolol Tartrate 12.5 mg PO BID 11/18/15 09/11/20 Omeprazole 20 mg PO DAILY 11/18/15 09/11/20 lisinopriL [Lisinopril] 5 mg PO DAILY 11/18/15 09/11/20 Clobetasol 0.05% Oint [Temovate 1 applic TOP PRN PRN 09/11/20 09/11/20 0.05% Oint] Ibuprofen [Motrin] 600 mg PO Q6H PRN 09/11/20 09/11/20 Melatonin/Pyridoxine [Melatonin 5 1 each PO QPM PRN 30 Days #30 09/11/20 mg Tablet] tablet Sodium Fluoride [Prevident 5000] 1 applic TOP DAILY PM 09/11/20 09/11/20 LORazepam [Ativan] 1 mg PO QPM PRN #10 tablet 11/18/20 Mag Hydrox/Aluminum Hyd/Simeth 15 ml PO QID 7 Days #1 bottle 11/18/20 [Mylanta Maximum Strength Liq] Metoclopramide [Reglan] 5 mg PO BID #10 tablet 11/18/20 Lansoprazole [Prevacid] 0 mg DAILY 12/07/20 12/07/20 polyethylene glycoL 3350 [Miralax] 17 gm PO DAILY #238 gm 12/07/20 - Allergies Allergies/Adverse Reactions: Allergies Allergy/AdvReac Type Severity Reaction Status Date / Time fluoxetine AdvReac Anxiety Verified 12/07/20 09:16 oxycodone HCl * AdvReac Hallucinati Verified 12/07/20 09:16 [From OxyContin] ons - Social History Does the pt smoke?: No Smoking Status: Never smoker Does the pt drink ETOH?: No Does the pt have substance abuse?: Yes - Immunizations Immunizations are current?: Yes - POLST Patient has POLST: Yes PD ED PE NORMAL - Vitals Vital signs reviewed: Yes - General General: Alert and oriented X 3, No acute distress, Well developed/nourished - HEENT HEENT: Atraumatic, PERRL, EOMI - Neck Neck: Supple, no meningeal sign - Cardiac Cardiac: RRR - Respiratory Respiratory: No respiratory distress, Clear bilaterally - Abdomen Abdomen: Non tender, Non distended - Male Male : Deferred - Rectal Rectal: Other (hard brown stool in vault. normal prostate) - Back Back: No CVA TTP - Derm Derm: Normal color - Extremities Extremities: No deformity - Neuro Neuro: Alert and oriented X 3 - Psych Psych: Other (depressed mood and affect) Results - Vitals Vitals: Vital Signs - 24 hr 12/07/20 12/07/20 12/07/20 09:16 14:00 16:40 Temperature 37.1 C Heart Rate 63 62 64 Respiratory 18 16 16 Rate Blood Pressure 137/90 H 138/86 H 142/80 H O2 Saturation 94 95 Oxygen O2 Source Room air PD MEDICAL DECISION MAKING - ED course ED course: 75-year-old man presents with chronic dysphagia for the past 6 months with evidence of esophageal scarring and tortuosity at the base of the esophagus on EGD done by Dr. Martinez. The patient initially was demanding that he be given surgery today in order to resolve the problem. I spoke with Dr. Saucedo, surgeon continuous towel roller today and he is recommending that we send him to [place] to speak with a gastroenterology specialist. after speaking with the patient at length he understands that it is important to have a preoperative appointment at the [facility] by a manager games/specialist who can review his case prior to deciding to do surgery. 11:50 AMas patient was being given his discharge paperwork he stated that he feels too overwhelmed to go home and is concerned that he is going to harm himself. Upon interview he states that he has no active plan and has too much to live for to kill himself but that he cannot live with the burping and dysphagia anymore and needs surgery immediately. I discussed with him that we will be able to schedule his clinic appointment at the [facility] or [facility] and we will have social work see him. He also requested MiraLAX be given in the emergency department, stating that he may feel better and be able to go home if he feels like he gets his stool cleared. 4pm - patient feeling much better. he would like to go home and arrange follow up with his primary doctor for outpatient follow up with GI in [place]. "I apologize for the things I was saying about being suicidal. That is not true". Patient assures me that he feels safe to go home and that he does not have concerns that he is going to take his own life. He was able to have a good bowel movement after MiraLAX. Strict return precautions given. Departure - Departure Disposition: 01 Home, Self Care Clinical Impression: Dysphagia, GERD (gastroesophageal reflux disease), Chronic scarring of esophagus, Constipation Condition: Good Instructions: GERD Dc Prescriptions: polyethylene glycoL 3350 [Miralax] 17 gm PO DAILY #238 gm Comments: You are seen in the emergency department for chronic difficulty swallowing liquids and solids and for burping. I reviewed your medical record and discussed with our general surgeon and we are recommending that you follow-up with [facility] gastroenterology in [place] or [facility] gastroenterology in [place]. They may be able to help you with your anatomic issues in your esophagus. Please take MiraLAX for your constipation as needed. Return to the emergency department if you develop any new or worsening symptoms or other concerns. Follow-up with your primary doctor this week as well as with Dr. Martinez. [email or web address] Gastroenterology Ailin Galarza MD, MS [facility] [address] [place] [address] ~42.[address] mi [facility] Department of gastroenterology Gastroenterology and Hepatology Discharge Date/Time: 12/07/20 16:50
[2020-12-07] MEDS ORDERED: polyethylene glycoL 3350 17 GM PACKET PO STA (11:31)
[2020-12-07 17:08] VITALS: BP 142/80
== END 2020-12-07 16:50 | disposition home or self-care (01) ==
LOC: ED 09:13
DX: K21.9 Gastro-esophageal reflux disease without esophagitis (principal); R13.19 Other dysphagia; K22.2 Esophageal obstruction; K59.00 Constipation, unspecified; I10 Essential (primary) hypertension; Z95.5 Presence of coronary angioplasty implant and graft; Z79.82 Long term (current) use of aspirin
CPT/HCPCS: 99283; 99284; A9270

== ENCOUNTER 2020-12-27 14:45 | Emergency (ER) | payer MEDICARE ==
--- OUTSIDE RECORDS SUMMARY | 2020-12-27 14:48 | EXTERNAL MEDICAL SUMMARY RPT | Continuity of Care Document ---
:1945 Demographics Phone Unavailable Preferred Language Sierra Leonean Marital Status Unknown Mormonism Affiliation Unknown Race Unknown Ethnic Group Unknown Author Organization [place] Address [address] [phone] Phone Social History date description facility [phone]
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
--- OUTSIDE RECORDS SUMMARY | 2020-12-27 15:09 | EXTERNAL MEDICAL SUMMARY RPT | Continuity of Care Document ---
:1945 Demographics Phone Unavailable Preferred Language Vincentian Marital Status Unknown Latter-Day Affiliation Unknown Race Unknown Ethnic Group Unknown Author Organization [facility] Address [address] [phone] Phone Social History date description facility [phone]
[2020-12-27] MEDS ORDERED: SUCRALFATE 1 GM/10 ML UDC PO STA (15:23)
[2020-12-27] MEDS ORDERED: FAMOTIDINE 20 MG TABLET PO STA (15:23)
[2020-12-27 15:51] LABS: MUDS CUTOFF CONCENTRATIONS CUTOFF CONC BELOW:
[2020-12-27 15:55] LABS: BILIRUBIN,URINE NEGATIVE (NEGATIVE); GLUCOSE, URINE (UA) NEGATIVE (NEGATIVE); KETONES,URINE (UA) NEGATIVE (NEGATIVE); LEUKOCYTE ESTERASE, URINE NEGATIVE (NEGATIVE); NITRITE,URINE NEGATIVE (NEGATIVE); OCCULT BLOOD,URINE TRACE-INTA (NEGATIVE); PH,URINE 7.5 PH (5.0-7.5); PROTEIN,URINE NEGATIVE (NEGATIVE); UROBILINOGEN,URINE 1 (NORMAL) E.U./dL (NORMAL)
[2020-12-27 15:56] LABS: CLARITY,URINE CLEAR (CLEAR)
[2020-12-27 16:03] LABS: AMPHETAMINE SCREEN,URINE NEGATIVE (NEGATIVE); BARBITURATE SCREEN,UR NEGATIVE (NEGATIVE); BENZODIAZEPINES SCREEN, URINE NEGATIVE (NEGATIVE); COCAINE SCREEN URINE NEGATIVE (NEGATIVE); METHADONE SCREEN, URINE NEGATIVE (NEGATIVE); METHAMPHETAMINES SCREEN, URINE NEGATIVE (NEGATIVE); OPIATE SCREEN, URINE NEGATIVE (NEGATIVE); OXYCODONE SCREEN, URINE NEGATIVE (NEGATIVE); PROPOXYPHENE SCREEN, URINE NEGATIVE (NEGATIVE); THC CANNABINOID SCREEN, URINE NEGATIVE (NEGATIVE); TRICYCLIC ANTIDEPRESSANT,URINE NEGATIVE (NEGATIVE)
[2020-12-27 16:03] LABS: BASOPHILS # (AUTO) 0.1 10^3/uL (0.0-0.1); EOSINOPHILS # (AUTO) 0.2 10^3/uL (0.0-0.7); EOSINOPHILS % (AUTO) 2.3 %; HCT - HEMATOCRIT 44.4 % (42.0-52.0); HGB - HEMOGLOBIN 15.3 g/dL (14.0-18.0); LYMPHOCYTES # (AUTO) 1.2 10^3/uL (1.5-3.5); MEAN CORPUSCULAR HEMOGLOBIN 31.4 pg (27.0-31.0); MEAN CORPUSCULAR HGB CONC 34.5 g/dL (32.0-36.0); MONOCYTES # (AUTO) 0.8 10^3/uL (0.0-1.0); MONOCYTES % (AUTO) 9.6 %; NEUTROPHILS # (AUTO) 6.3 10^3/uL (1.5-6.6); NEUTROPHILS % (AUTO) 72.8 %; PLT - PLATELET COUNT 203 10^3/uL (130-450); RED BLOOD COUNT 4.88 10^6/uL (4.70-6.10); RED CELL DISTRIBUTION WIDTH 12.6 % (12.0-15.0); WHITE BLOOD COUNT 8.7 x10^3/uL (4.8-10.8)
[2020-12-27 16:20] LABS: ACETAMINOPHEN < 10 ug/mL (10-30); ALBUMIN 3.7 g/dL (3.2-5.5); ALBUMIN/GLOBULIN RATIO 1.2 (1.0-2.2); ALKALINE PHOSPHATASE 64 IU/L (42-121); ALT ALANINE AMINOTRANSFERASE 15 IU/L (10-60); AST ASPARTATE AMINOTRANSFERASE 22 IU/L (10-42); BILIRUBIN,TOTAL 1.1 mg/dL (0.2-1.0); BUN - BLOOD UREA NITROGEN 13 mg/dL (6-20); CALCIUM 9.2 mg/dL (8.5-10.3); CARBON DIOXIDE - CO2 28 mmol/L (21-32); CHLORIDE 99 mmol/L (101-111); ETOH - ETHANOL < 5.0 mg/dL; GFR - MDRD 73 (>89); GLUCOSE 92 mg/dL (70-100); LIPASE 30 U/L (22-51); SALICYLATE < 6.0 mg/dL; SODIUM 133 mmol/L (135-145); TOTAL PROTEIN 6.8 g/dL (6.7-8.2)
[2020-12-27 16:33] LABS: THYROID STIMULATING HORMONE 1.31 uIU/mL (0.34-5.60)
[2020-12-27] MEDS ORDERED: MAGNESIUM CITRATE 296 ML BOTTLE PO STA (19:27)
[2020-12-27 20:25] LABS: CORONAVIRUS 229E-RESP PCR NOT DETECTED; CORONAVIRUS HKU1-RESP PCR NOT DETECTED; CORONAVIRUS NL63-RESP PCR NOT DETECTED; CORONAVIRUS OC43-RESP PCR NOT DETECTED; HUMAN METAPNEUMOVIRUS NOT DETECTED; INFLUENZA A- RESP PCR PANEL NOT DETECTED; INFLUENZA B - RESP PCR PANEL NOT DETECTED; PARAINFLUENZA VIRUS 1 NOT DETECTED; PARAINFLUENZA VIRUS 2 NOT DETECTED; PARAINFLUENZA VIRUS 3 NOT DETECTED; PARAINFLUENZA VIRUS 4 NOT DETECTED; RHINOVIRUS/ENTEROVIRUS NOT DETECTED; RSV- RESP PCR PANEL NOT DETECTED; SARS-CoV-2 -RESP PCR PANEL NOT DETECTED
[2020-12-27 20:26] LABS: B. PARAPERTUSSIS- RESP PCR PAN NOT DETECTED; B. PERTUSSIS- RESP PCR PANEL NOT DETECTED; C. PNEUMONIAE- RESP PCR PANEL NOT DETECTED; M. PNEUMONIAE- RESP PCR PANEL NOT DETECTED
[2020-12-27] MEDS ORDERED: LORazepam 0.5 MG TABLET PO STA (21:34)
[2020-12-27] MEDS ORDERED: SODIUM CHLORIDE 0.9% 1,000 ML IV STA (23:12)
[2020-12-28] MEDS ORDERED: SUCRALFATE 1 GM/10 ML UDC PO STA (11:19)
[2020-12-28] MEDS ORDERED: FAMOTIDINE 20 MG TABLET PO STA (11:19)
[2020-12-28] MEDS ORDERED: levETIRAcetam 250 MG TABLET PO STA (11:23)
[2020-12-28] MEDS ORDERED: PANTOPRAZOLE 40 MG TABLET PO STA (11:25)
[2020-12-28] MEDS ORDERED: CITALOPRAM 10 MG TABLET PO SCH (12:00)
[2020-12-28] MEDS ORDERED: METOPROLOL SUCCINATE 25 MG TABLET PO SCH (12:00)
[2020-12-28 14:02] VITALS: BP 109/78
== END 2020-12-28 14:39 ==
LOC: ED 14:45
DX: R45.851 Suicidal ideations (principal); F32.9 Major depressive disorder, single episode, unspecified; K21.9 Gastro-esophageal reflux disease without esophagitis; K20.90 Esophagitis, unspecified without bleeding; K22.8 Other specified diseases of esophagus; F43.10 Post-traumatic stress disorder, unspecified; Y36.90XA War operations, unspecified, initial encounter; Z20.822 Contact with and (suspected) exposure to COVID-19
CPT/HCPCS: 36415; 80053; 80306; 80307; 81003; 82607; 83690; 84443; 85025; 87631; 93005; 96360; 96361; 99283; 99285; A9270; G0480; 0202U; 80320; 80329; 81001; 87086

== ENCOUNTER 2021-01-10 19:15 | Emergency (ER) | payer MEDICARE, OTHER ==
--- OUTSIDE RECORDS SUMMARY | 2021-01-10 19:18 | EXTERNAL MEDICAL SUMMARY RPT | Continuity of Care Document ---
:1945 Demographics Phone Unavailable Preferred Language Marshallese Marital Status Unknown Evangelical Affiliation Unknown Race Unknown Ethnic Group Unknown Author Organization [facility] Address [address] [phone] Phone Social History date description facility [phone]
--- OUTSIDE RECORDS SUMMARY | 2021-01-10 19:23 | EXTERNAL MEDICAL SUMMARY RPT | Continuity of Care Document ---
:1945 Demographics Phone Unavailable Preferred Language Venezuelan Marital Status Unknown Religion Affiliation Unknown Race Unknown Ethnic Group Unknown Author Organization [facility] Address [address] [phone] Phone Social History date description facility [phone]
[2021-01-10 19:35] VITALS: BP 111/72
[2021-01-10 19:50] LABS: BILIRUBIN,URINE NEGATIVE (NEGATIVE); GLUCOSE, URINE (UA) NEGATIVE (NEGATIVE); KETONES,URINE (UA) TRACE mg/dL (NEGATIVE); LEUKOCYTE ESTERASE, URINE NEGATIVE (NEGATIVE); NITRITE,URINE NEGATIVE (NEGATIVE); OCCULT BLOOD,URINE LARGE (NEGATIVE); PH,URINE 6.5 PH (5.0-7.5); PROTEIN,URINE NEGATIVE (NEGATIVE); UROBILINOGEN,URINE 1 (NORMAL) E.U./dL (NORMAL)
[2021-01-10 19:51] LABS: CLARITY,URINE CLEAR (CLEAR)
[2021-01-10 20:03] LABS: BACTERIA,URINE None Seen /HPF (None Seen); MUCUS,URINE Few Strands; RBC,URINE TNTC /HPF (0-5); SQUAMOUS EPITHELIAL CELL,UR FEW Squamous (<= Few); WBC,URINE 0-3 /HPF (0-3)
[2021-01-10] MEDS ORDERED: IOPAMIDOL-300 100 ML VIAL ONE (20:56)
[2021-01-10 21:24] LABS: BASOPHILS # (AUTO) 0.1 10^3/uL (0.0-0.1); BASOPHILS % (AUTO) 0.7 %; EOSINOPHILS # (AUTO) 0.3 10^3/uL (0.0-0.7); HCT - HEMATOCRIT 43.3 % (42.0-52.0); HGB - HEMOGLOBIN 15.1 g/dL (14.0-18.0); LYMPHOCYTES # (AUTO) 1.5 10^3/uL (1.5-3.5); LYMPHOCYTES % (AUTO) 15.8 %; MEAN CORPUSCULAR HEMOGLOBIN 32.4 pg (27.0-31.0); MEAN CORPUSCULAR HGB CONC 34.9 g/dL (32.0-36.0); MEAN CORPUSCULAR VOLUME 92.9 fL (80.0-94.0); MEAN PLATELET VOLUME 9.7 fL (7.4-11.4); MONOCYTES # (AUTO) 0.8 10^3/uL (0.0-1.0); MONOCYTES % (AUTO) 8.7 %; NEUTROPHILS # (AUTO) 6.9 10^3/uL (1.5-6.6); NEUTROPHILS % (AUTO) 71.6 %; PLT - PLATELET COUNT 157 10^3/uL (130-450); RED BLOOD COUNT 4.66 10^6/uL (4.70-6.10); RED CELL DISTRIBUTION WIDTH 12.9 % (12.0-15.0); WHITE BLOOD COUNT 9.6 x10^3/uL (4.8-10.8)
[2021-01-10 21:36] LABS: ALBUMIN/GLOBULIN RATIO 1.3 (1.0-2.2); BILIRUBIN,TOTAL 0.7 mg/dL (0.2-1.0); CALCIUM 9.4 mg/dL (8.5-10.3); CREATININE 1.1 mg/dL (0.6-1.2); POTASSIUM 3.9 mmol/L (3.5-5.0); TOTAL PROTEIN 7.2 g/dL (6.7-8.2)
[2021-01-10] MEDS ORDERED: IOPAMIDOL-300 100 ML VIAL IVP ONE (21:47)
--- NOTE | 2021-01-10 22:07 | CT Report ---
PROCEDURE: Abdomen/Pelvis W INDICATIONS: hematuria; dysuria CONTRAST: IV CONTRAST: Isovue 300 ml: 100 PO CONTRAST: *NO PO CONTRAST TECHNIQUE: After the administration of IV contrast, 5 mm thick sections acquired from the diaphragms to the symp hysis. 5 mm thick coronal and sagittal reformats were acquired. For radiation dose reduction, the f ollowing was used: automated exposure control, adjustment of mA and/or kV according to patient size. COMPARISON: None. FINDINGS: ABDOMEN: Lung bases: Normal Liver: Hepatic steatosis. Gallbladder: Age-indeterminate gallbladder wall thickening, suboptimally evaluated given partially de compressed state Bile ducts: Normal Pancreas: Normal Spleen: Normal Adrenals: Normal. Kidneys: Bilateral renal cortical atrophy and scarring. Simple appearing left renal cyst measuring 4 cm. Additional left renal cysts. The ureters appear decompressed. Stomach: Normal. Appendix: Normal. Colonic diverticulosis incidentally noted without evidence of acute inflammation. Other: No free fluid or air. Abdominal nodes: Normal Aorta: Normal. Scalp IVC: Normal. Ventral wall: Normal. PELVIS: Bladder: 4 mm calculus seen in the region of the right ureterovesical junction. Possible bladder wall thickening although limited evaluation given decompressed state.. Pelvic nodes: Normal. Inguinal: No hernia. Bones: Diffuse spondylitic changes and facet arthropathy. No compression fracture IMPRESSION: 4 mm calculus seen at the right ureterovesical junction. No additional urolithiasis identified. Quest ionable bladder wall thickening. Recommend clinical correlation and if necessary, cystoscopic evaluat ion could be considered Reviewed by: Omid Oneal MD on 01/10/2021 10:06 PM PDT Approved by: Omid Oneal MD on 01/10/2021 10:06 PM PDT Station ID: [id number]
--- NOTE | 2021-01-10 22:25 | ED Physician Documentation ---
History of Present Illness - Stated complaint Stated Complaint: ABD PX/MALE - Chief complaint Chief Complaint: Abd Pain - Additonal information Additional information: 75-year-old male presents the emergency department for evaluation of lower abdominal discomfort and dysuria that began this morning. He reports that he had pain when he pees but did not notice any abnormal coloration of the urine or foul odor. Pain lasted for about 2 to 3 hours. He decided to come to the ER to get checked out. By the time he arrived here he reports the pain had gone away and he was able to urinate pain-free. He denies any previous history of renal colic. No history of urinary tract infection. Patient denies fevers or vomiting. Review of Systems Constitutional: denies: Fever, Chills Eyes: reports: Reviewed and negative Ears: reports: Reviewed and negative Nose: reports: Reviewed and negative Throat: reports: Reviewed and negative Cardiac: reports: Reviewed and negative Respiratory: reports: Reviewed and negative GI: reports: Abdominal Pain. denies: Nausea, Vomiting : reports: Dysuria. denies: Frequency, Hesitancy, Hematuria Skin: reports: Reviewed and negative Musculoskeletal: reports: Reviewed and negative PD PAST MEDICAL HISTORY - Past Medical History Past Medical History: Yes Cardiovascular: Hypertension, High cholesterol, [place] Respiratory: None Neuro: None Endocrine/Autoimmune: None GI: GERD : None HEENT: None Psych: Depression, Anxiety, Panic attacks, Post traumatic stress disorder Musculoskeletal: None Derm: None - Past Surgical History Past Surgical History: Yes General: Other Cardiovascular: Coronary stent - Present Medications Home Medications: Ambulatory Orders Medication Instructions Recorded Confirmed Atorvastatin Calcium 80 mg PO DAILY 11/18/15 09/11/20 Calcium Citrate/Vitamin D3 [[facility] 1 tab PO BID 11/18/15 09/11/20 Calcium Citrate-Vit D Tab] Citalopram [CeleXA] 40 mg PO DAILY 11/18/15 09/11/20 Levetiracetam [Keppra] 750 mg PO BID 11/18/15 01/10/21 Metoprolol Tartrate 12.5 mg PO BID 11/18/15 01/10/21 Omeprazole 20 mg PO DAILY 11/18/15 01/10/21 lisinopriL [Lisinopril] 5 mg PO DAILY 11/18/15 01/10/21 Ibuprofen [Motrin] 600 mg PO Q6H PRN 09/11/20 01/10/21 Sodium Fluoride [Prevident 5000] 1 applic TOP DAILY PM 09/11/20 01/10/21 Lansoprazole [Prevacid] 0 mg DAILY 12/07/20 01/10/21 Tamsulosin HCl [Flomax] 0.4 mg PO DAILY #7 01/10/21 - Allergies Allergies/Adverse Reactions: Allergies Allergy/AdvReac Type Severity Reaction Status Date / Time fluoxetine AdvReac Anxiety Verified 01/10/21 19:35 oxycodone HCl * AdvReac Hallucinati Verified 01/10/21 19:35 [From OxyContin] ons - Social History Does the pt smoke?: No Smoking Status: Never smoker Does the pt drink ETOH?: No Does the pt have substance abuse?: Yes - Immunizations Immunizations are current?: Yes - POLST Patient has POLST: No PD ED PE EXPANDED - General General: Alert, No acute distress, Well developed/nourished - Cardiac Cardiac: Regular Rate, Murmur Present, Radial strong equal, Pedal strong equal, Cap refill < 2 sec - Respiratory Respiratory: Clear to ausultation ladonna. No: Distress, Labored - Abdomen Abdomen: Normal Bowel sounds. No: Tender to palpation - Back Back: No: CVA TTP right, CVA TTP left - Derm Derm: Normal color, Warm and dry - Extremities Extremities: Normal. No: Deformity, Tenderness - Neuro Neuro: Alert and Oriented X 3, CNII-XII intact - GCS Eye Opening: Spontaneous Motor: Obeys Commands Verbal: Oriented Total: 15 Results - Vitals Vitals: Vital Signs - 24 hr 01/10/21 19:34 Temperature 37.0 C Heart Rate 67 Respiratory 17 Rate Blood Pressure 111/72 O2 Saturation 98 Oxygen O2 Source Room air - Labs Labs: Laboratory Tests 01/10/21 01/10/21 01/10/21 19:36 21:15 21:15 WBC 9.6 RBC 4.66 L Hgb 15.1 Hct 43.3 MCV 92.9 MCH 32.4 H MCHC 34.9 RDW 12.9 Plt Count 157 MPV 9.7 Neut # (Auto) 6.9 H Lymph # (Auto) 1.5 [place] # (Auto) 0.8 Eos # (Auto) 0.3 Baso # (Auto) 0.1 Absolute Nucleated RBC 0.00 Nucleated RBC % 0.0 Sodium 139 Potassium 3.9 Chloride 104 Carbon Dioxide 27 Anion Gap 8.0 BUN 14 Creatinine 1.1 Estimated GFR (MDRD) 65 L Glucose 103 H Calcium 9.4 Total Bilirubin 0.7 AST 24 ALT 14 Alkaline Phosphatase 62 Total Protein 7.2 Albumin 4.0 Globulin 3.2 Albumin/Globulin Ratio 1.3 Lipase 29 Urine Color YELLOW Urine Clarity CLEAR Urine pH 6.5 Ur Specific [place] 1.025 Urine Protein NEGATIVE Urine Glucose (UA) NEGATIVE Urine Ketones TRACE Urine Occult Blood LARGE H Urine Nitrite NEGATIVE Urine Bilirubin NEGATIVE Urine Urobilinogen 1 (NORMAL) Ur Leukocyte Esterase NEGATIVE Urine RBC TNTC H Urine WBC 0-3 Ur Squamous Epith Cells FEW Squamous Urine Bacteria None Seen Urine Mucus Few Strands Ur Microscopic Review INDICATED Urine Culture Comments NOT INDICATED - Rads (name of study) CT abd Radiology: Final report received (4 mm calculus seen at the right UVJ. No additional urolithiasis identified.) PD MEDICAL DECISION MAKING - ED course Complexity details: reviewed results, re-evaluated patient, d/w patient ED course: This is a well-appearing 75-year-old male that presents to the emergency department for evaluation of dysuria and lower abdominal pain that lasted a few hours before coming to the emergency department. By the time he arrived here the pain and dysuria had fully abated. Screening labs show no significant leukocytosis or electrolyte abnormality. His urine is positive for hematuria. However no secondary signs of infection. He did not have any abdominal or flank tenderness on exam. There is no CVA tenderness. A CT of the abdomen does show a 4 mm calculus at the right UVJ. No associated hydroureter or hydronephrosis. These findings were discussed with the patient. He will be started on Flomax and advised close follow-up with his primary care provider as well as urology. Emergent return precautions were discussed for fevers, worsening symptoms, uncontrolled vomiting. Departure - Departure Disposition: 01 Home, Self Care Clinical Impression: Calculus of ureterovesical junction (UVJ) Hematuria Qualifiers: Hematuria type: gross Qualified Code(s): R31.0 - Gross hematuria Condition: Stable Record reviewed to determine appropriate education?: Yes Instructions: Kidney Stones Tx Meds, ED Stone Renal W Colic Follow-Up: Jerry Duncan MD [Primary Care Provider] - Prescriptions: Tamsulosin HCl [Flomax] 0.4 mg PO DAILY #7 Comments: Edward you were seen in the emergency department today for pain with urination as well as some lower abdominal pain. However by the time of my evaluation you were free of those symptoms. As we discussed your urine showed a moderate amount of blood. We did do a CT scan and you do have a 4 mm stone at your UVJ near your bladder. Reassuringly there is no infection in your urine and there is no swelling in the kidney or ureter. I have prescribed a medication called Flomax. Please take this every day for the next week. This should help dilate the ureter and allow the small stone to pass. You are having increased pain uncontrolled vomiting then please return immediately to the ER. You do need to be seen by a urologist. Please ask your primary care provider to make that referral.
== END 2021-01-10 22:30 | disposition home or self-care (01) ==
LOC: ED 19:15
DX: N20.1 Calculus of ureter (principal); I10 Essential (primary) hypertension
CPT/HCPCS: 36415; 74177; 80053; 81001; 83690; 85025; 99284; Q9967; 81003; 87086

== ENCOUNTER 2021-03-06 07:47 | Day surgery (SDC) | payer MEDICARE, OTHER ==
[2021-03-06] MEDS ORDERED: LACTATED RINGERS 1,000 ML IV ONE ×2 (07:53→11:24)
--- NOTE | 2021-03-06 08:43 | ANESTHESIA ---
Pre-Anesthesia VS, & Labs - Diagnosis Screening exam - Procedure colonoscopy Vital Signs: Temp Pulse Resp BP Pulse Ox 36.1 C L 64 16 141/85 H 98 03/06/21 08:05 03/06/21 08:05 03/06/21 08:05 03/06/21 08:05 03/06/21 08:05 Height: 6 ft 1 in Weight (kg): 81.1 kg Body Mass Index: 23.6 BMI Classification: Healthy weight - NPO >8 hours Home Medications and Allergies Atorvastatin Calcium 80 mg PO DAILY 11/18/15 Calcium Citrate/Vitamin D3 [[facility] Calcium Citrate-Vit D Tab] 1 tab PO BID 11/18/15 Citalopram [CeleXA] 40 mg PO DAILY 11/18/15 Levetiracetam [Keppra] 750 mg PO BID 11/18/15 Metoprolol Tartrate 12.5 mg PO BID 11/18/15 Omeprazole 20 mg PO DAILY 11/18/15 lisinopriL [Lisinopril] 5 mg PO DAILY 11/18/15 Ibuprofen [Motrin] 600 mg PO Q6H PRN 09/11/20 Sodium Fluoride [Prevident 5000] 1 applic TOP DAILY PM 09/11/20 Lansoprazole [Prevacid] 0 mg DAILY 12/07/20 Allergies/Adverse Reactions: Allergies Allergy/AdvReac Type Severity Reaction Status Date / Time fluoxetine AdvReac Anxiety Verified 01/10/21 19:35 oxycodone HCl * AdvReac Hallucinati Verified 01/10/21 19:35 [From OxyContin] ons Anes History & Medical History - Anesthetic History Family history of Anesthesia Complications: Denies Family history of Malignant Hyperthermia: Denies - Medical History Cardiovascular: reports: Hypertension, High cholesterol, [place] Pulmonary: reports: None Gastrointestinal: reports: GERD (well controlled) Urinary: reports: None Neuro: reports: Seizure disorder Musculoskeletal: reports: None Endocrine/Autoimmune: reports: None Blood Disorders: reports: None Skin: reports: None Smoking Status: Former smoker (quit 20 years ago) Psychosocial: reports: Alcohol (sober since 1986), Other (PTSD) History of Cancer?: No - Surgical History General: reports: EGD, Other Cardiothoracic: reports: Coronary stent Exam General: Alert, Oriented x3, Cooperative, No acute distress Dental: Poor dentition Mouth Openin Fingerbreadth Neck Mobility: Normal Mallampati classification: III Thyromental Distance: 4-6 cm Mental/Cognitive Status: Alert/Oriented X3, Normal for patient Plan Anesthesia Type: Total IV Consent for Procedure(s) Verified and Reviewed: Yes Code Status: Attempt Resuscitation ASA classification: 3-Severe systemic disease Is this case an emergency?: No
[2021-03-06] MEDS ORDERED: LIDOCAINE-MPF 2% 5 ML VIAL ONE (10:18)
[2021-03-06] MEDS ORDERED: PROPOFOL 200 MG/20 ML VIAL IVP ONE ×2 (10:18→10:19)
[2021-03-06 11:51] VITALS: BP 136/82
--- NOTE | 2021-03-06 13:52 | ANESTHESIA POST OP EVALUATION ---
Anesthesia Post Eval - Post Anesthesia Eval Vitals: Last Vital Signs Temp 37.1 C 03/06/21 11:24 Pulse 57 L 03/06/21 11:49 Resp 18 03/06/21 11:49 BP 136/82 H 03/06/21 11:49 Pulse Ox 97 03/06/21 11:49 CV Function Including HR & BP: Stable Pain Control: Satisfactory Nausea & Vomiting: Negative Mental Status: Baseline Respiratory Status: Airway Patent Hydration Status: Satisfactory Anesthesia Complications: None
== END 2021-03-06 07:48 | disposition home or self-care (01) ==
LOC: SDS 07:47
PROVIDERS: ATTEND Surgery
DX: Z12.11 Encounter for screening for malignant neoplasm of colon (principal); K64.8 Other hemorrhoids; Z92.83 Personal history of failed moderate sedation; F41.9 Anxiety disorder, unspecified; Z79.899 Other long term (current) drug therapy; Z87.891 Personal history of nicotine dependence
CPT/HCPCS: 45378; J7120

== ENCOUNTER 2021-07-05 13:06 | Emergency (ER) | payer OTHER ==
--- NOTE | 2021-07-05 14:58 | ED Physician Documentation ---
PD HPI MHE - Stated complaint Stated Complaint: SI - Chief complaint Chief Complaint: MHE - History obtained from History obtained from: Patient - History of Present Illness Primary symptom: Suicidal ideation - Additional information Additional information: 75-year-old male who presents with suicidal ideation. The patient states over the last several days he has had thoughts of suicide and states that he told his , he states his is very supportive be transferred to inpatient psych and he states that there was some difficulty with transportation therefore he was told to come in to the nearest emergency department if he could not wait at home any longer. The patient states that he has plans to slit his wrist, his throat and stab himself in the chest with a "very long knife and wiggle it around." He has a past history of a psych admission for suicidal ideation in the past though no prior attempts. He is not on any antidepressants or antipsy chotics or other medication. He is followed by the [facility] and is 100% service- connected. Review of Systems Ten Systems: 10 systems reviewed and negative Psychiatric: reports: Depressed, Suicidal. denies: Homicidal, Hallucinations, Delusions, Anxiety PD PAST MEDICAL HISTORY - Past Medical History Past Medical History: Yes Cardiovascular: Hypertension, High cholesterol, [place] Respiratory: None Neuro: Seizure disorder Endocrine/Autoimmune: None GI: GERD (well controlled) : None HEENT: None Psych: Depression, Anxiety, Panic attacks, Post traumatic stress disorder Musculoskeletal: None Derm: None - Past Surgical History Past Surgical History: Yes General: Other Cardiovascular: Coronary stent - Present Medications Home Medications: Ambulatory Orders Medication Instructions Recorded Confirmed Atorvastatin Calcium 80 mg PO DAILY 11/18/15 02/23/21 Calcium Citrate/Vitamin D3 [[facility] 1 tab PO BID 11/18/15 02/23/21 Calcium Citrate-Vit D Tab] Citalopram [CeleXA] 40 mg PO DAILY 11/18/15 03/06/21 Levetiracetam [Keppra] 750 mg PO BID 11/18/15 02/23/21 Metoprolol Tartrate 12.5 mg PO BID 11/18/15 02/23/21 Omeprazole 20 mg PO DAILY 11/18/15 02/23/21 lisinopriL [Lisinopril] 5 mg PO DAILY 11/18/15 02/23/21 Ibuprofen [Motrin] 600 mg PO Q6H PRN 09/11/20 02/23/21 Sodium Fluoride [Prevident 5000] 1 applic TOP DAILY PM 09/11/20 02/23/21 Lansoprazole [Prevacid] 0 mg DAILY 12/07/20 02/23/21 Tamsulosin HCl [Flomax] 0.4 mg PO DAILY #7 01/10/21 02/23/21 - Allergies Allergies/Adverse Reactions: Allergies Allergy/AdvReac Type Severity Reaction Status Date / Time fluoxetine AdvReac Anxiety Verified 07/05/21 13:14 oxycodone HCl * AdvReac Hallucinati Verified 07/05/21 13:14 [From OxyContin] ons - Social History Does the pt smoke?: No Smoking Status: Former smoker (quit 20 years ago) Does the pt drink ETOH?: No Does the pt have substance abuse?: Yes - Immunizations Immunizations are current?: Yes - POLST Patient has POLST: No PD ED PE NORMAL - Vitals Vital signs reviewed: Yes - General General: Alert and oriented X 3, No acute distress, Well developed/nourished - HEENT HEENT: Atraumatic, Pharynx benign - Neck Neck: Supple, no meningeal sign, No JVD - Cardiac Cardiac: RRR, No murmur - Respiratory Respiratory: No respiratory distress, Clear bilaterally - Abdomen Abdomen: Normal bowel sounds, Soft, Non tender, Non distended - Derm Derm: Normal color, Warm and dry, No rash - Extremities Extremities: No deformity, No tenderness to palpate, Normal ROM s pain - Neuro Neuro: Alert and oriented X 3, No motor deficit, No sensory deficit, Normal speech Eye Opening: Spontaneous Motor: Obeys Commands Verbal: Oriented GCS Score: 15 - Psych Psych: Other (Suicidal thoughts) Results - Vitals Vitals: Vital Signs - 24 hr 07/05/21 13:14 Temperature 37.0 C Heart Rate 71 Respiratory 18 Rate Blood Pressure 139/90 H O2 Saturation 97 Oxygen O2 Source Room air PD MEDICAL DECISION MAKING - ED course Complexity details: d/w patient, d/w [employer] sales consultant ED course: 75-year-old male who has suicidal ideation with specific plans. I discussed the case with the medical social consultant [facility] patient already has he has been working with an outpatient team. We will medically clear him here, his vitals are stable, labs are pending we will obtain a Covid PCR test. He will be monitored closely due to high risk for suicide. Departure - Departure Disposition: 65 Psych Hosp/Unit DC/Xfer Clinical Impression: Suicidal intent Condition: Good
[2021-07-05 15:12] LABS: BASOPHILS % (AUTO) 0.4 %; EOSINOPHILS # (AUTO) 0.1 10^3/uL (0.0-0.7); EOSINOPHILS % (AUTO) 1.3 %; HCT - HEMATOCRIT 45.6 % (42.0-52.0); HGB - HEMOGLOBIN 15.5 g/dL (14.0-18.0); LYMPHOCYTES # (AUTO) 1.1 10^3/uL (1.5-3.5); LYMPHOCYTES % (AUTO) 11.8 %; MEAN CORPUSCULAR HEMOGLOBIN 31.8 pg (27.0-31.0); MEAN CORPUSCULAR VOLUME 93.6 fL (80.0-94.0); MEAN PLATELET VOLUME 9.5 fL (7.4-11.4); MONOCYTES # (AUTO) 0.8 10^3/uL (0.0-1.0); MONOCYTES % (AUTO) 8.4 %; NEUTROPHILS # (AUTO) 7.2 10^3/uL (1.5-6.6); NEUTROPHILS % (AUTO) 77.8 %; PLT - PLATELET COUNT 144 10^3/uL (130-450); RED BLOOD COUNT 4.87 10^6/uL (4.70-6.10); WHITE BLOOD COUNT 9.3 x10^3/uL (4.8-10.8)
[2021-07-05 15:26] LABS: ACETAMINOPHEN < 10 ug/mL (10-30); ALBUMIN 3.6 g/dL (3.2-5.5); ALBUMIN/GLOBULIN RATIO 1.2 (1.0-2.2); ALKALINE PHOSPHATASE 55 IU/L (42-121); ALT ALANINE AMINOTRANSFERASE 13 IU/L (10-60); AST ASPARTATE AMINOTRANSFERASE 20 IU/L (10-42); BILIRUBIN,TOTAL 0.9 mg/dL (0.2-1.0); BUN - BLOOD UREA NITROGEN 14 mg/dL (6-20); CALCIUM 8.9 mg/dL (8.5-10.3); CARBON DIOXIDE - CO2 28 mmol/L (21-32); CHLORIDE 102 mmol/L (101-111); ETOH - ETHANOL < 5.0 mg/dL; GFR - MDRD 73 (>89); GLUCOSE 89 mg/dL (70-100); LIPASE 30 U/L (22-51); SALICYLATE < 6.0 mg/dL; SODIUM 138 mmol/L (135-145); TOTAL PROTEIN 6.7 g/dL (6.7-8.2)
[2021-07-05 15:49] LABS: MUDS CUTOFF CONCENTRATIONS CUTOFF CONC BELOW:
[2021-07-05 15:50] LABS: BILIRUBIN,URINE NEGATIVE (NEGATIVE); GLUCOSE, URINE (UA) NEGATIVE (NEGATIVE); KETONES,URINE (UA) NEGATIVE (NEGATIVE); LEUKOCYTE ESTERASE, URINE NEGATIVE (NEGATIVE); NITRITE,URINE NEGATIVE (NEGATIVE); OCCULT BLOOD,URINE NEGATIVE (NEGATIVE); PH,URINE 7.5 PH (5.0-7.5); PROTEIN,URINE NEGATIVE (NEGATIVE); UROBILINOGEN,URINE 0.2 (NORMAL) E.U./dL (NORMAL)
[2021-07-05 15:54] LABS: CLARITY,URINE CLEAR (CLEAR)
[2021-07-05 16:46] LABS: AMPHETAMINE SCREEN,URINE NEGATIVE (NEGATIVE); BARBITURATE SCREEN,UR NEGATIVE (NEGATIVE); BENZODIAZEPINES SCREEN, URINE NEGATIVE (NEGATIVE); COCAINE SCREEN URINE NEGATIVE (NEGATIVE); METHADONE SCREEN, URINE NEGATIVE (NEGATIVE); METHAMPHETAMINES SCREEN, URINE NEGATIVE (NEGATIVE); OPIATE SCREEN, URINE NEGATIVE (NEGATIVE); OXYCODONE SCREEN, URINE NEGATIVE (NEGATIVE); PROPOXYPHENE SCREEN, URINE NEGATIVE (NEGATIVE); THC CANNABINOID SCREEN, URINE NEGATIVE (NEGATIVE); TRICYCLIC ANTIDEPRESSANT,URINE NEGATIVE (NEGATIVE)
[2021-07-05 17:14] LABS: B. PARAPERTUSSIS- RESP PCR PAN NOT DETECTED; B. PERTUSSIS- RESP PCR PANEL NOT DETECTED; C. PNEUMONIAE- RESP PCR PANEL NOT DETECTED; CORONAVIRUS 229E-RESP PCR NOT DETECTED; CORONAVIRUS HKU1-RESP PCR NOT DETECTED; CORONAVIRUS NL63-RESP PCR NOT DETECTED; CORONAVIRUS OC43-RESP PCR NOT DETECTED; HUMAN METAPNEUMOVIRUS NOT DETECTED; INFLUENZA A- RESP PCR PANEL NOT DETECTED; INFLUENZA B - RESP PCR PANEL NOT DETECTED; M. PNEUMONIAE- RESP PCR PANEL NOT DETECTED; PARAINFLUENZA VIRUS 1 NOT DETECTED; PARAINFLUENZA VIRUS 2 NOT DETECTED; PARAINFLUENZA VIRUS 3 NOT DETECTED; PARAINFLUENZA VIRUS 4 NOT DETECTED; RHINOVIRUS/ENTEROVIRUS NOT DETECTED; RSV- RESP PCR PANEL NOT DETECTED; SARS-CoV-2 -RESP PCR PANEL NOT DETECTED
[2021-07-05] MEDS ORDERED: ZOLPIDEM 5 MG TABLET PO PRN (19:27)
[2021-07-05] MEDS ORDERED: QUEtiapine 25 MG TABLET PO STA (20:43)
[2021-07-06 06:09] VITALS: BP 167/93
== END 2021-07-06 07:05 ==
LOC: ED 13:06
DX: F32.9 Major depressive disorder, single episode, unspecified (principal); R45.851 Suicidal ideations; I10 Essential (primary) hypertension; Z87.891 Personal history of nicotine dependence; Z20.822 Contact with and (suspected) exposure to COVID-19
CPT/HCPCS: 0202U; 36415; 80053; 80306; 80307; 80320; 80329; 81003; 83690; 84443; 85025; 99281; 99285; A9270; 81001; 87086

== ENCOUNTER 2021-07-20 12:30 | Emergency (ER) | payer OTHER ==
[2021-07-20 12:58] VITALS: BP 113/74
--- NOTE | 2021-07-20 14:16 | ED Physician Documentation ---
History of Present Illness - Stated complaint Stated Complaint: L ARM RASH - Chief complaint Chief Complaint: General - Additonal information Additional information: 75-year-old male presents emergency department for evaluation of a pruritic rash on his left forearm that began 4 days ago. He reports that he woke up and he had some pruritic red areas that he scratched thus spreading the rash. He has been using an [id number] itch ointment without success. Denies any work outside or exposure to poison oak poison komal. No new soaps lotions or detergents. No history of similar. Rash is not painful and crosses multiple dermatomes. hx of atrial fibrillation on eliquis Review of Systems Constitutional: reports: Reviewed and negative Ears: reports: Reviewed and negative Nose: reports: Reviewed and negative Throat: reports: Reviewed and negative Cardiac: reports: Reviewed and negative Respiratory: reports: Reviewed and negative GI: reports: Reviewed and negative : reports: Reviewed and negative Skin: reports: Rash Musculoskeletal: reports: Reviewed and negative PD PAST MEDICAL HISTORY - Past Medical History Cardiovascular: Hypertension, High cholesterol, [place] Respiratory: None Neuro: Seizure disorder Endocrine/Autoimmune: None GI: GERD (well controlled) : None HEENT: None Psych: Depression, Anxiety, Panic attacks, Post traumatic stress disorder Musculoskeletal: None Derm: None - Past Surgical History Past Surgical History: Yes General: Other Cardiovascular: Coronary stent - Present Medications Home Medications: Ambulatory Orders Medication Instructions Recorded Confirmed Atorvastatin Calcium 80 mg PO DAILY 11/18/15 02/23/21 Calcium Citrate/Vitamin D3 [[facility] 1 tab PO BID 11/18/15 02/23/21 Calcium Citrate-Vit D Tab] Citalopram [CeleXA] 40 mg PO DAILY 11/18/15 03/06/21 Levetiracetam [Keppra] 750 mg PO BID 11/18/15 02/23/21 Metoprolol Tartrate 12.5 mg PO BID 11/18/15 02/23/21 Omeprazole 20 mg PO DAILY 11/18/15 02/23/21 lisinopriL [Lisinopril] 5 mg PO DAILY 11/18/15 02/23/21 Ibuprofen [Motrin] 600 mg PO Q6H PRN 09/11/20 02/23/21 Sodium Fluoride [Prevident 5000] 1 applic TOP DAILY PM 09/11/20 02/23/21 Lansoprazole [Prevacid] 0 mg DAILY 12/07/20 02/23/21 Tamsulosin HCl [Flomax] 0.4 mg PO DAILY #7 01/10/21 02/23/21 predniSONE [Deltasone] 40 mg PO DAILY 5 Days #10 tablet 07/20/21 - Allergies Allergies/Adverse Reactions: Allergies Allergy/AdvReac Type Severity Reaction Status Date / Time fluoxetine AdvReac Anxiety Verified 07/20/21 12:58 oxycodone HCl * AdvReac Hallucinati Verified 07/20/21 12:58 [From OxyContin] ons - Social History Does the pt smoke?: No Smoking Status: Former smoker (quit 20 years ago) Does the pt drink ETOH?: No Does the pt have substance abuse?: Yes - Immunizations Immunizations are current?: Yes - POLST Patient has POLST: No PD ED PE NORMAL - General General: Alert and oriented X 3, No acute distress - Cardiac Cardiac: RRR. No: No murmur (Pansystolic murmur) - Respiratory Respiratory: No respiratory distress, Clear bilaterally - Abdomen Abdomen: Normal bowel sounds, Soft - Back Back: No CVA TTP, No spinal TTP - Derm Derm: Normal color, Warm and dry. No: No rash (Left forearm hand and wrist with multiple areas of erythema induration with vesicular lesions clear fluid draining.) Results - Vitals Vitals: Vital Signs - 24 hr 07/20/21 12:54 Temperature 36.3 C L Heart Rate 70 Respiratory 16 Rate Blood Pressure 113/74 O2 Saturation 99 Oxygen O2 Source Room air PD MEDICAL DECISION MAKING - ED course Complexity details: d/w patient ED course: 75-year-old male here with pruritic vesicular rash on his left forearm that it crosses multiple dermatomes. It is not painful. I do suspect that this is a dermatitis as opposed to varicella. Patient will be started on a 5-day course of prednisone. Advised close follow-up with his PCP. Clinically this is not consistent with a cellulitis though emergent return precautions were discussed. Departure - Departure Disposition: 01 Home, Self Care Clinical Impression: Dermatitis Condition: Stable Record reviewed to determine appropriate education?: Yes Prescriptions: predniSONE [Deltasone] 40 mg PO DAILY 5 Days #10 tablet Comments: Edward you have a rash on your arm that I am not quite sure what it is caused by but I do think short course of steroids will be helpful. I have sent a prescription for prednisone to the [facility] in [place]. Please fill this and begin taking once daily for the next 5 days. I recommend a cool compress over the arm to help reduce itch. You can continue to use the [id number] itch ointment that your bought. Return to the ER if you develop any fevers, red streaking or the rash fails to resolve as we expect.
== END 2021-07-20 14:27 | disposition home or self-care (01) ==
LOC: ED 12:30
DX: L30.9 Dermatitis, unspecified (principal); I10 Essential (primary) hypertension; Z87.891 Personal history of nicotine dependence
CPT/HCPCS: 99282; 99284

== ENCOUNTER 2021-07-30 09:42 | Outpatient (CLI) | payer OTHER ==
--- NOTE | 2021-07-30 10:40 | Ultrasound Report ---
PROCEDURE: Aorta Screening INDICATIONS: FORMER SMOKER TECHNIQUE: Real time scanning was performed of the aorta and iliac arteries, with image documentatio n. COMPARISON: CT of abdomen and pelvis dated 01/10/2021 FINDINGS: Aorta: Proximal aortic diameter measures 2.6 x 2.5 cm. Mid-aorta measures 2.1 x 1.8 cm. Distal aor tic diameter is 2.1 x 1.9 cm. Iliac arteries: Right common iliac artery measures 1.3 x 1.2 cm. Left common iliac artery measures 1.1 x 1.1 cm. Mild scattered atherosclerotic plaques are seen throughout the abdominal aorta and bilateral iliac ar teries. IMPRESSION: No evidence of abdominal aortic aneurysm. Scattered atherosclerotic plaques throughout abdominal aort a and bilateral iliac arteries. Reviewed by: Terrell Waterman MD on 07/30/2021 10:39 AM PST Approved by: Terrell Waterman MD on 07/30/2021 10:39 AM PST Station ID: [id number]
--- NOTE | 2021-07-30 11:22 | CT Report ---
PROCEDURE: CT chest without contrast INDICATIONS: nodules, hepatic steatosis TECHNIQUE: Noncontrast 1mm axial images were acquired from the pulmonary apices to the posterior costophrenic an gles. Axial 5 mm soft tissue kernel reconstructions were performed as well as 8 mm axial MIP and cor onal and sagittal 5 mm reformations. For radiation dose reduction, the following was used: automate d exposure control, adjustment of mA and/or kV according to patient size. COMPARISON: 11/06/2020 FINDINGS: Image quality: Excellent. Lungs and pleura: Right upper lobe groundglass nodule in the posterior segment is stable measuring 1 cm in diameter. There is a new pleural-based right upper lobe spiculated nodule measuring 7 mm. Lingu lar left upper lobe 4 mm nodule has decreased in size, previously 7 mm. Mediastinum: Heart size is normal. Dense coronary artery vascular calcification as well as aortic va lvular calcifications stable. No pericardial effusion. No mediastinal adenopathy by size criteria. Thoracic aorta and central pulmonary arteries are normal in size. Esophagus is normal in caliber. N o hiatal hernia. Bones and chest wall: No suspicious bony lesions. No axillary or supraclavicular adenopathy by size criteria. The thyroid is normal in size and there are no incidental findings. Chronic appearing mil d T7 and T8 wedge-shaped compression fracture are stable from the prior. Abdomen: Visualized upper abdominal solid organs and bowel loops appear normal in the absence of con trast. IMPRESSION: 1. New right upper lobe 7 mm spiculated nodule. Best practice guidelines suggest 6-12 month follow-up evaluation. 2. Stable right upper lobe 1 cm groundglass nodule 3. Improved left upper lobe lingular nodule now measures 4 mm, previously 7 mm 4. Dense coronary artery and aortic valvular calcifications, stable Reviewed by: Mando Melissa MD on 07/30/2021 10:21 AM [facility] Approved by: Mando Melissa MD on 07/30/2021 10:21 AM [facility] Station ID: [id number]
== END 2021-07-30 09:43 | disposition home or self-care (01) ==
LOC: DI 09:42
PROVIDERS: ATTEND Internal Medicine
DX: Z13.6 Encounter for screening for cardiovascular disorders (principal); Z87.891 Personal history of nicotine dependence; I70.0 Atherosclerosis of aorta; I70.8 Atherosclerosis of other arteries; R91.1 Solitary pulmonary nodule; R91.8 Other nonspecific abnormal finding of lung field; I25.10 Atherosclerotic heart disease of native coronary artery without angina pectoris

== ENCOUNTER 2021-08-14 15:41 | Emergency (ER) | payer OTHER ==
[2021-08-14 16:09] LABS: BASOPHILS # (AUTO) 0.1 10^3/uL (0.0-0.1); BASOPHILS % (AUTO) 0.7 %; EOSINOPHILS # (AUTO) 0.2 10^3/uL (0.0-0.7); EOSINOPHILS % (AUTO) 2.2 %; HCT - HEMATOCRIT 44.7 % (42.0-52.0); HGB - HEMOGLOBIN 15.7 g/dL (14.0-18.0); LYMPHOCYTES # (AUTO) 1.3 10^3/uL (1.5-3.5); LYMPHOCYTES % (AUTO) 15.9 %; MEAN CORPUSCULAR HEMOGLOBIN 32.4 pg (27.0-31.0); MEAN CORPUSCULAR HGB CONC 35.1 g/dL (32.0-36.0); MEAN CORPUSCULAR VOLUME 92.2 fL (80.0-94.0); MEAN PLATELET VOLUME 9.2 fL (7.4-11.4); MONOCYTES # (AUTO) 0.7 10^3/uL (0.0-1.0); MONOCYTES % (AUTO) 9.2 %; NEUTROPHILS # (AUTO) 5.8 10^3/uL (1.5-6.6); NEUTROPHILS % (AUTO) 71.6 %; PLT - PLATELET COUNT 151 10^3/uL (130-450); RED BLOOD COUNT 4.85 10^6/uL (4.70-6.10); WHITE BLOOD COUNT 8.1 x10^3/uL (4.8-10.8)
--- NOTE | 2021-08-14 16:17 | XRAY Report ---
PROCEDURE: Chest 1 View X-Ray INDICATIONS: Chest Pain TECHNIQUE: One view of the chest was acquired. COMPARISON: CT chest 07/30/2021. FINDINGS: Surgical changes and devices: None. Lungs and pleura: No pleural effusions or pneumothorax. Lungs are clear. Mediastinum: Mediastinal contours appear normal. Heart size is normal. Bones and chest wall: No suspicious bony lesions. Overlying soft tissues appear unremarkable. IMPRESSION: No acute cardiopulmonary disease process. Reviewed by: Oly Roberts MD, PhD on 08/14/2021 4:16 PM PST Approved by: Oly Roberts MD, PhD on 08/14/2021 4:16 PM PST Station ID: [id number]
[2021-08-14 16:24] LABS: ALBUMIN 3.7 g/dL (3.2-5.5); ALBUMIN/GLOBULIN RATIO 1.3 (1.0-2.2); BILIRUBIN,TOTAL 1.1 mg/dL (0.2-1.0); CALCIUM 9.1 mg/dL (8.5-10.3); CREATININE 0.9 mg/dL (0.6-1.2); POTASSIUM 3.4 mmol/L (3.5-5.0); TOTAL PROTEIN 6.6 g/dL (6.7-8.2)
--- NOTE | 2021-08-14 16:26 | ED Physician Documentation ---
PD HPI FOCAL NEURO - Stated complaint Stated Complaint: CONFUSION - Chief complaint Chief Complaint: Neuro - History obtained from History obtained from: Patient - Additional information Additional information: 75-year-old gentleman with history of depression anxiety and vascular disease presents with confusion starting this morning. He states that his was recently hospitalized with a hip fracture and now is in rehab. Because of that he is staying with his son. His son does not drink coffee so he did not get his morning coffee this morning and subsequently felt like he was just off. [place] like he could not remember anything. He did have the wherewithal to go to the store and buy chicken thighs for his dog and individually wrapped them anticipating that he would get admitted to the hospital. He knows that tomorrow is his birthday. He seems alert and oriented. He denies headaches, chest pain, trouble breathing. Review of Systems Ten Systems: 10 systems reviewed and negative Constitutional: denies: Fever, Chills Throat: reports: Reviewed and negative Cardiac: reports: Reviewed and negative Respiratory: reports: Reviewed and negative PD PAST MEDICAL HISTORY - Past Medical History Cardiovascular: Hypertension, High cholesterol, [place] Respiratory: None Neuro: Seizure disorder Endocrine/Autoimmune: None GI: GERD (well controlled) : None HEENT: None Psych: Depression, Anxiety, Panic attacks, Post traumatic stress disorder Musculoskeletal: None Derm: None - Past Surgical History Past Surgical History: Yes General: Other Cardiovascular: Coronary stent - Present Medications Home Medications: Ambulatory Orders Medication Instructions Recorded Confirmed Atorvastatin Calcium 80 mg PO DAILY 11/18/15 02/23/21 Calcium Citrate/Vitamin D3 [[facility] 1 tab PO BID 11/18/15 02/23/21 Calcium Citrate-Vit D Tab] Citalopram [CeleXA] 40 mg PO DAILY 11/18/15 03/06/21 Levetiracetam [Keppra] 750 mg PO BID 11/18/15 02/23/21 Metoprolol Tartrate 12.5 mg PO BID 11/18/15 02/23/21 Omeprazole 20 mg PO DAILY 11/18/15 02/23/21 lisinopriL [Lisinopril] 5 mg PO DAILY 11/18/15 02/23/21 Ibuprofen [Motrin] 600 mg PO Q6H PRN 09/11/20 02/23/21 Sodium Fluoride [Prevident 5000] 1 applic TOP DAILY PM 09/11/20 02/23/21 Lansoprazole [Prevacid] 0 mg DAILY 12/07/20 02/23/21 Tamsulosin HCl [Flomax] 0.4 mg PO DAILY #7 01/10/21 02/23/21 predniSONE [Deltasone] 40 mg PO DAILY 5 Days #10 tablet 07/20/21 - Allergies Allergies/Adverse Reactions: Allergies Allergy/AdvReac Type Severity Reaction Status Date / Time fluoxetine AdvReac Anxiety Verified 08/14/21 15:43 oxycodone HCl * AdvReac Hallucinati Verified 08/14/21 15:43 [From OxyContin] ons - Social History Does the pt smoke?: No Smoking Status: Former smoker (quit 20 years ago) Does the pt drink ETOH?: No Does the pt have substance abuse?: Yes - Immunizations Immunizations are current?: Yes - POLST Patient has POLST: No PD ED PE NORMAL - Vitals Vital signs reviewed: Yes - General General: Alert and oriented X 3, No acute distress, Well developed/nourished - HEENT HEENT: PERRL, EOMI - Neck Neck: Supple, no meningeal sign, No bony TTP - Cardiac Cardiac: RRR, No murmur - Respiratory Respiratory: No respiratory distress, Clear bilaterally - Abdomen Abdomen: Normal bowel sounds, Soft, Non tender - Back Back: No CVA TTP, No spinal TTP - Derm Derm: Normal color, Warm and dry - Extremities Extremities: No edema, No calf tenderness / cord - Neuro Neuro: Alert and oriented X 3, Normal speech, Other (NIHSS zero at 1620) Results - Vitals Vitals: Vital Signs - 24 hr 08/14/21 08/14/21 08/14/21 15:43 15:48 16:02 Temperature 36.5 C 36.5 C Heart Rate 72 87 87 Respiratory 16 20 20 Rate Blood Pressure 138/92 H 130/88 H 130/88 H O2 Saturation 98 96 96 08/14/21 18:03 Temperature Heart Rate 69 Respiratory 16 Rate Blood Pressure 137/99 H O2 Saturation 97 Oxygen O2 Source Room air - EKG (time done) 1550 Rate: Rate (enter#) (67) Rhythm: NSR [place]: Normal Intervals: Normal [place] QRS: Normal Ischemia: Non specific changes Compare to prior EKG: Unchanged from prior EKG (Mild ST elevation anteriorly is unchanged from December 27 of this year) - Labs Labs: Laboratory Tests 08/14/21 08/14/21 08/14/21 16:05 16:05 16:05 WBC 8.1 RBC 4.85 Hgb 15.7 Hct 44.7 MCV 92.2 MCH 32.4 H MCHC 35.1 RDW 12.0 Plt Count 151 MPV 9.2 Neut # (Auto) 5.8 Lymph # (Auto) 1.3 L [place] # (Auto) 0.7 Eos # (Auto) 0.2 Baso # (Auto) 0.1 Absolute Nucleated RBC 0.00 Nucleated RBC % 0.0 Sodium 140 Potassium 3.4 L Chloride 106 Carbon Dioxide 25 Anion Gap 9.0 BUN 12 Creatinine 0.9 Estimated GFR (MDRD) 82 L Glucose 97 Calcium 9.1 Total Bilirubin 1.1 H AST 21 ALT 12 Alkaline Phosphatase 64 Troponin I High Sens 20.9 H* Total Protein 6.6 L Albumin 3.7 Globulin 2.9 Albumin/Globulin Ratio 1.3 Lipase 23 Urine Opiates Screen Ur Oxycodone Screen Urine Methadone Screen Ur Propoxyphene Screen Ur Barbiturates Screen Ur Tricyclics Screen Ur Phencyclidine Scrn Ur Amphetamine Screen U Methamphetamines Scrn U Benzodiazepines Scrn Urine Cocaine Screen U Cannabinoids Screen Ethyl Alcohol 08/14/21 08/14/21 16:05 17:30 WBC RBC Hgb Hct MCV MCH MCHC RDW Plt Count MPV Neut # (Auto) Lymph # (Auto) [place] # (Auto) Eos # (Auto) Baso # (Auto) Absolute Nucleated RBC Nucleated RBC % Sodium Potassium Chloride Carbon Dioxide Anion Gap BUN Creatinine Estimated GFR (MDRD) Glucose Calcium Total Bilirubin AST ALT Alkaline Phosphatase Troponin I High Sens Total Protein Albumin Globulin Albumin/Globulin Ratio Lipase Urine Opiates Screen NEGATIVE Ur Oxycodone Screen NEGATIVE Urine Methadone Screen NEGATIVE Ur Propoxyphene Screen NEGATIVE Ur Barbiturates Screen NEGATIVE Ur Tricyclics Screen NEGATIVE Ur Phencyclidine Scrn NEGATIVE Ur Amphetamine Screen NEGATIVE U Methamphetamines Scrn NEGATIVE U Benzodiazepines Scrn NEGATIVE Urine Cocaine Screen NEGATIVE U Cannabinoids Screen NEGATIVE Ethyl Alcohol < 5.0 PD MEDICAL DECISION MAKING - ED course ED course: 75-year-old gentleman presents with resolved confusion. CT of the head was normal. Labs unremarkable. I think it was probably multifactorial given the stress of what is going on with his after she just broke his hip, being out of his normal routine. He admits he probably took some of his medications wrong yesterday and then did not get his morning coffee. He is feeling better now and comfortable with discharge. He will stay with family. Note made of his troponin, however in the absence of chest pain or ischemic EKG changes this is unlikely to be of significance given the fact that it is only 1 point above normal. Departure - Departure Disposition: 01 Home, Self Care Clinical Impression: Episodic confusion Condition: Good Record reviewed to determine appropriate education?: Yes Instructions: ED Confusion Comments: Be sure to take your medications as prescribed. Return for worsening symptoms. Follow-up stay with family tonight. Follow-up with your primary care physician, next available appointment. Discharge Date/Time: 08/14/21 18:11
--- NOTE | 2021-08-14 17:25 | CT Report ---
PROCEDURE: HEAD WO INDICATIONS: Confusion TECHNIQUE: Noncontrast 4.5 mm thick angled axial sections acquired from the foramen magnum to the vertex. For r adiation dose reduction, the following was used: automated exposure control, adjustment of mA and/or kV according to patient size. COMPARISON: None. FINDINGS: Image quality: Excellent. CSF spaces: Basal cisterns are patent. No extra-axial fluid collections. Ventricles are normal in size and shape. Brain: No midline shift. No intracranial masses or hemorrhage. [place]-white matter interface is norm al. Skull and face: Calvarium and visualized facial bones are intact, without suspicious lesions. Sinuses: Visualized sinuses and mastoids are clear. IMPRESSION: No acute intracranial abnormality. Reviewed by: Josue Adam MD on 08/14/2021 4:24 PM [facility] Approved by: Josue Adam MD on 08/14/2021 4:24 PM [facility] Station ID: [id number]
[2021-08-14 17:39] LABS: MUDS CUTOFF CONCENTRATIONS CUTOFF CONC BELOW:
[2021-08-14 17:51] LABS: AMPHETAMINE SCREEN,URINE NEGATIVE (NEGATIVE); BARBITURATE SCREEN,UR NEGATIVE (NEGATIVE); BENZODIAZEPINES SCREEN, URINE NEGATIVE (NEGATIVE); COCAINE SCREEN URINE NEGATIVE (NEGATIVE); METHADONE SCREEN, URINE NEGATIVE (NEGATIVE); METHAMPHETAMINES SCREEN, URINE NEGATIVE (NEGATIVE); OPIATE SCREEN, URINE NEGATIVE (NEGATIVE); OXYCODONE SCREEN, URINE NEGATIVE (NEGATIVE); PROPOXYPHENE SCREEN, URINE NEGATIVE (NEGATIVE); THC CANNABINOID SCREEN, URINE NEGATIVE (NEGATIVE); TRICYCLIC ANTIDEPRESSANT,URINE NEGATIVE (NEGATIVE)
[2021-08-14 18:04] VITALS: BP 137/99
== END 2021-08-14 18:11 | disposition home or self-care (01) ==
LOC: ED 15:41
DX: R41.0 Disorientation, unspecified (principal); I10 Essential (primary) hypertension; Z87.891 Personal history of nicotine dependence
CPT/HCPCS: 36415; 80053; 80306; 80320; 83690; 84484; 85025; 93005; 99283; 99284

== ENCOUNTER 2021-09-18 09:00 | Outpatient (CLI) | payer OTHER ==
--- NOTE | 2021-09-18 13:21 | XRAY Report ---
PROCEDURE: Lumbar Spine 2 View INDICATIONS: PARESTHESIA TECHNIQUE: 3 views of the lumbar spine were acquired. COMPARISON: CT abdomen pelvis 01/10/2021. FINDINGS: Bones: 5 [id number]-[id number] vertebrae are present. Minimal scoliosis. Multilevel intervertebral disc sp riaz height loss. Lower lumbar spine facet joint hypertrophy. Small vertebral body osteophytes. No ve rtebral body compression fractures. No suspicious bony lesions. Soft tissues: Overlying bowel gas pattern is normal. No suspicious soft tissue calcifications. Kacie pect pelvic mass. IMPRESSION: No compression fracture. Moderate degenerative change in the lumbar spine. Reviewed by: Mahad German MD on 09/18/2021 12:23 PM PST Approved by: Mahad German MD on 09/18/2021 12:23 PM PST Station ID: [id number]
== END 2021-09-18 09:01 | disposition home or self-care (01) ==
LOC: DI.S 09:00
PROVIDERS: ATTEND Nurse Practitioner Family
DX: M47.816 Spondylosis without myelopathy or radiculopathy, lumbar region (principal); M51.36 Other intervertebral disc degeneration, lumbar region

== ENCOUNTER 2021-11-07 20:18 | Outpatient (CLI) | payer OTHER | END 2021-11-07 20:19 | disposition critical access hospital (66) | LOC: EMS 20:18 | DX: R14.2 Eructation (principal); R06.6 Hiccough; R07.9 Chest pain, unspecified | CPT/HCPCS: A0425; A0427 ==

== ENCOUNTER 2021-11-07 20:41 | Emergency (ER) | payer OTHER ==
--- NOTE | 2021-11-07 21:14 | ED Physician Documentation ---
History of Present Illness - Stated complaint Stated Complaint: HICCUPS - Chief complaint Chief Complaint: General - History obtained from History obtained from: Patient - History of Present Illness Timing: Today Pain level now: 1 (not pain, per patient, discomfort) Radiates to: no radiation Improved by: partial improvement with eructation - Additonal information Additional information: c/o vague diffuse anterior chest discomfort; insists that the only way to describe his symptoms is I have to burp (per patient), and he says he had partial relief when he was able to belch [employer]. He has subsequently developed hiccups. Review of Systems Constitutional: reports: Reviewed and negative Cardiac: reports: Chest pain / pressure (discomfort). denies: Palpitations, Pedal edema Respiratory: reports: Reviewed and negative GI: reports: Reviewed and negative Musculoskeletal: reports: Reviewed and negative PD PAST MEDICAL HISTORY - Past Medical History Past Medical History: Yes Cardiovascular: Hypertension, High cholesterol, [place] Respiratory: None Neuro: Seizure disorder Endocrine/Autoimmune: None GI: GERD : None HEENT: None Psych: Depression, Anxiety, Panic attacks, Post traumatic stress disorder Musculoskeletal: None Derm: None - Past Surgical History Past Surgical History: Yes General: Other Cardiovascular: Coronary stent - Present Medications Home Medications: Ambulatory Orders Medication Instructions Recorded Confirmed Atorvastatin Calcium 80 mg PO DAILY 11/18/15 11/07/21 Calcium Citrate/Vitamin D3 [[facility] 1 tab PO BID 11/18/15 11/07/21 Calcium Citrate-Vit D Tab] Citalopram [CeleXA] 40 mg PO DAILY 11/18/15 11/07/21 Levetiracetam [Keppra] 750 mg PO BID 11/18/15 11/07/21 Metoprolol Tartrate 12.5 mg PO BID 11/18/15 11/07/21 Fluoride (Sodium) [Prevident 5000 1 applic TOP DAILY PM 09/11/20 11/07/21 Dry Mouth] Ibuprofen [Motrin] 600 mg PO Q6H PRN 09/11/20 11/07/21 Apixaban [Eliquis] 5 mg PO DAILY 11/07/21 11/07/21 Aspirin EC [Ecotrin] 81 mg PO DAILY 11/07/21 11/07/21 Cholecalciferol (Vitamin D3) 1,000 mcg PO DAILY 11/07/21 11/07/21 [Vitamin D3] Escitalopram [Lexapro] 10 mg PO DAILY 11/07/21 11/07/21 Ibuprofen [Ibuprofen Ib] 600 mg PO PRN PRN 11/07/21 11/07/21 Meclizine HCl [Motion Sickness] 25 mg PO PRN PRN 11/07/21 11/07/21 Pantoprazole [Protonix] 40 mg PO DAILY 11/07/21 11/07/21 Sildenafil Citrate 100 mg PO PRN PRN 11/07/21 11/07/21 Baclofen [Lioresal] 10 mg PO TID PRN #10 tablet 11/08/21 - Allergies Allergies/Adverse Reactions: Allergies Allergy/AdvReac Type Severity Reaction Status Date / Time fluoxetine AdvReac Anxiety Verified 11/07/21 20:50 oxycodone HCl * AdvReac Hallucinati Verified 11/07/21 20:50 [From OxyContin] ons - Social History Does the pt smoke?: No Smoking Status: Never smoker Does the pt drink ETOH?: No Does the pt have substance abuse?: Yes - Immunizations Immunizations are current?: Yes - POLST Patient has POLST: No PD ED PE NORMAL - Vitals Vital signs reviewed: Yes - General General: Alert and oriented X 3, No acute distress, Well developed/nourished - HEENT HEENT: Moist mucous membranes - Neck Neck: Supple, no meningeal sign - Cardiac Cardiac: RRR, No murmur - Respiratory Respiratory: No respiratory distress, Clear bilaterally - Abdomen Abdomen: Normal bowel sounds, Soft, Non tender, Non distended - Back Back: No CVA TTP Results - Vitals Vitals: Vital Signs - 24 hr 11/08/21 11/08/21 00:00 00:17 Heart Rate 68 Respiratory 20 16 Rate Blood Pressure 132/90 H O2 Saturation 98 Oxygen O2 Source Room air - EKG (time done) No standard instances Rate: Rate (enter#) (64) Rhythm: NSR [place]: Normal Intervals: Normal [place] QRS: Normal Ischemia: Normal ST segments, Non specific changes (ST segment changes V1-V3, comparable to previous EKG) - Labs Labs: Laboratory Tests 11/07/21 11/07/21 11/07/21 22:15 22:15 22:15 WBC 8.9 RBC 4.87 Hgb 15.7 Hct 45.1 MCV 92.6 MCH 32.2 H MCHC 34.8 RDW 11.9 L Plt Count 181 MPV 9.2 Neut # (Auto) 6.7 H Lymph # (Auto) 1.1 L [place] # (Auto) 0.8 Eos # (Auto) 0.2 Baso # (Auto) 0.1 Absolute Nucleated RBC 0.00 Nucleated RBC % 0.0 Sodium 135 Potassium 3.9 Chloride 98 L Carbon Dioxide 28 Anion Gap 9.0 BUN 16 Creatinine 1.4 H Estimated GFR (MDRD) 49 L Glucose 97 Calcium 9.2 Total Bilirubin 0.9 AST 24 ALT 14 Alkaline Phosphatase 68 Troponin I High Sens 16.2 Total Protein 7.0 Albumin 3.8 Globulin 3.2 Albumin/Globulin Ratio 1.2 Lipase 29 PD MEDICAL DECISION MAKING - ED course Complexity details: reviewed old records, reviewed results, re-evaluated patient, considered differential, d/w patient ED course: unremarkable EKG, CXR, blood tests. His symptoms resolved after protonix and baclofen (for hiccups). Results reviewed with patient, return precautions discussed Departure - Departure Disposition: 01 Home, Self Care Clinical Impression: Chest discomfort, Hiccups Condition: Good Instructions: ED Chest Pain Atypical Unkn Cause, ED Hiccups Prescriptions: Baclofen [Lioresal] 10 mg PO TID PRN #10 tablet PRN Reason: Hiccups Comments: You should follow up with your primary care provider for reevaluation; further tests are at the discretion of your primary care provider, but might be needed even if you do not have recurrence of your symptoms. You should take an acid-blocking medication once daily for two weeks, such as prilosec or nexium. These are available over the counter and thus do not require a prescription. Follow the instructions on the label. A prescription for baclofen has been electronically submitted to [facility] pharmacy in [place]. This medication is to be taken as needed for hiccups. Discharge Date/Time: 11/08/21 00:30
[2021-11-07] MEDS ORDERED: LIDOCAINE VISCOUS 2% 15 ML UDC MM STA (21:45)
[2021-11-07] MEDS ORDERED: PANTOPRAZOLE 40 MG TABLET PO STA (21:45)
[2021-11-07] MEDS ORDERED: MAG HYDROX/AL HYDROX/SIMETH 30 ML UDC PO STA (21:45)
[2021-11-07] MEDS ORDERED: BACLOFEN 10 MG TABLET PO STA (21:46)
[2021-11-07 22:21] LABS: BASOPHILS # (AUTO) 0.1 10^3/uL (0.0-0.1); BASOPHILS % (AUTO) 0.8 %; EOSINOPHILS # (AUTO) 0.2 10^3/uL (0.0-0.7); EOSINOPHILS % (AUTO) 1.8 %; HCT - HEMATOCRIT 45.1 % (42.0-52.0); HGB - HEMOGLOBIN 15.7 g/dL (14.0-18.0); LYMPHOCYTES # (AUTO) 1.1 10^3/uL (1.5-3.5); LYMPHOCYTES % (AUTO) 12.5 %; MEAN CORPUSCULAR HEMOGLOBIN 32.2 pg (27.0-31.0); MEAN CORPUSCULAR HGB CONC 34.8 g/dL (32.0-36.0); MEAN CORPUSCULAR VOLUME 92.6 fL (80.0-94.0); MEAN PLATELET VOLUME 9.2 fL (7.4-11.4); MONOCYTES # (AUTO) 0.8 10^3/uL (0.0-1.0); MONOCYTES % (AUTO) 8.7 %; NEUTROPHILS # (AUTO) 6.7 10^3/uL (1.5-6.6); NEUTROPHILS % (AUTO) 75.9 %; PLT - PLATELET COUNT 181 10^3/uL (130-450); RED BLOOD COUNT 4.87 10^6/uL (4.70-6.10); RED CELL DISTRIBUTION WIDTH 11.9 % (12.0-15.0); WHITE BLOOD COUNT 8.9 x10^3/uL (4.8-10.8)
--- NOTE | 2021-11-07 22:21 | XRAY Report ---
PROCEDURE: Chest 2 View X-Ray INDICATIONS: chest discomfort TECHNIQUE: 2 view(s) of the chest. COMPARISON: 08/14/2021. FINDINGS: Surgical changes and devices: None. Lungs and pleura: No pleural effusions or pneumothorax. Lungs are clear. Mediastinum: Mediastinal contours are normal. Heart size is normal. Bones and chest wall: No suspicious bony abnormalities. 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 Soft tissues appear unremarkable. IMPRESSION: No evidence of acute pulmonary process. Reviewed by: Larry Hein MD on 11/07/2021 10:20 PM PST Approved by: Larry Hein MD on 11/07/2021 10:20 PM PST Station ID: [id number]
[2021-11-07 22:38] LABS: ALBUMIN 3.8 g/dL (3.2-5.5); ALBUMIN/GLOBULIN RATIO 1.2 (1.0-2.2); BILIRUBIN,TOTAL 0.9 mg/dL (0.2-1.0); CALCIUM 9.2 mg/dL (8.5-10.3); CREATININE 1.4 mg/dL (0.6-1.2); POTASSIUM 3.9 mmol/L (3.5-5.0)
[2021-11-08 00:03] VITALS: BP 132/90
== END 2021-11-08 00:30 | disposition home or self-care (01) ==
LOC: EDUNIT# → ED 20:41
DX: R07.9 Chest pain, unspecified (principal); R06.6 Hiccough; I10 Essential (primary) hypertension; Z79.01 Long term (current) use of anticoagulants
CPT/HCPCS: 36415; 71046; 80053; 83690; 84484; 85025; 93005; 99283; 99284; A9270

== ENCOUNTER 2021-11-11 09:04 | Outpatient (CLI) | payer OTHER ==
--- NOTE | 2021-11-11 09:58 | CT Report ---
PROCEDURE: Low Dose Lung Cancer Screen INDICATIONS: SCREENING FOR LUNG CA TECHNIQUE: Noncontrast low-dose images were acquired from the pulmonary apices to the posterior costophrenic ang les. Multiplanar MIP reformats were then acquired. For radiation dose reduction, the following was used: automated exposure control, adjustment of mA and/or kV according to patient size. COMPARISON: 07/30/2021, 11/06/2020. Correlation is also made with abdomen and pelvis CT, 01/10/2021. FINDINGS: Image quality: Excellent. Lungs and pleura: Within the right upper lobe, there is a groundglass nodule, as on series 4 image 8 2 measuring 10 x 7 mm. This is stable compared to the prior examination. Within the right upper lobe posteriorly, there is a poorly defined ground glass appearing nodule seen , as on series 4 image 100 measuring 22 x 17 mm. This is new compared to the prior examination. Within the right upper lobe laterally and posteriorly, there is a focus of groundglass opacity seen, as on series 4 image 112 measuring 13 x 10 mm, which is stable compared to the prior. Within the lingula laterally, there is an additional focus of groundglass opacity seen, as on series 4 image 188 measuring 27 x 16 mm, which is also new compared to the prior examination. No soft tissue nodules are seen. The central airways are patent. No pleural effusions or pneumothorax can be seen. Mediastinum: Heart size is normal. No pericardial effusion. No mediastinal adenopathy by size crit eria. Thoracic aorta and central pulmonary arteries are normal in size. Atherosclerotic calcificati on is seen. There is moderate to prominent coronary artery calcification. Esophagus is normal in renee deacon. No hiatal hernia. Bones and chest wall: No suspicious bony lesions. Several midthoracic anterior wedge deformities are seen, with associated accentuated thoracic kyphosis. Age-appropriate degenerative changes are seen. No axillary or supraclavicular adenopathy by size criteria. The thyroid is normal in size and the re are no incidental findings. Abdomen: Within the right kidney, there is a partially seen presumed water density cyst that measures 3 cm. This is better seen on the prior abdomen pelvis CT. The visualized portions of the upper abdom inal structures are otherwise within normal limits. IMPRESSION: 4 total areas of groundglass opacity are seen, 2 of which are new compared to the prior examination d ated 07/30/2021. 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 Infectious or inflammatory change is formal likely. Follow-up noncontrast chest CT in 3 months is recommended to ensure resolution/improvement. Atherosclerotic calcification is seen, with moderate to prominent coronary artery calcification. Incidental note is made of: Mid thoracic anterior wedge deformities, with associated accentuated thoracic kyphosis Simple appearing left renal cyst Reviewed by: Nael Pride MD on 11/11/2021 8:57 AM [facility] Approved by: Nael Pride MD on 11/11/2021 8:57 AM [facility] Station ID: [id number]
== END 2021-11-11 09:05 | disposition home or self-care (01) ==
LOC: DI 09:04
PROVIDERS: ATTEND Nurse Practitioner Family
DX: Z12.2 Encounter for screening for malignant neoplasm of respiratory organs (principal); R91.8 Other nonspecific abnormal finding of lung field; I25.10 Atherosclerotic heart disease of native coronary artery without angina pectoris

== ENCOUNTER 2021-12-29 10:00 | Outpatient (CLI) | payer MEDICARE, OTHER ==
--- NOTE | 2021-12-28 17:49 | XRAY Report ---
PROCEDURE: Lumbar Spine Complete INDICATIONS: LOW BACK PAIN TECHNIQUE: 5 views of the lumbar spine were acquired. COMPARISON: X-ray lumbar spine 09/18/2021 FINDINGS: Bones: 5 nonrib-bearing vertebrae are present. There is 3 mm retrolisthesis of L2 on L3, L3 on L4, L4 on L5. Severe disc space narrowing is present L4-5 and L5-S1 with severe foraminal narrowing at L5 -S1. Moderate disc space narrowing is present L1-L2 and L2-3. Multilevel anterior osteophytes are pre sent. No vertebral body compression fractures. No suspicious bony lesions. Soft tissues: Overlying bowel gas pattern is normal. No suspicious soft tissue calcifications. Oblique images: No pars defects. IMPRESSION: Multilevel degenerative changes overall stable compared to prior exam. Reviewed by: Cherelle Tatum MD on 12/28/2021 5:47 PM PDT Approved by: Cherelle Tatum MD on 12/28/2021 5:47 PM PDT Station ID: [id number]
[2021-12-29 14:50] LABS: BASOPHILS % (AUTO) 0.5 %; EOSINOPHILS # (AUTO) 0.1 10^3/uL (0.0-0.7); EOSINOPHILS % (AUTO) 1.6 %; HCT - HEMATOCRIT 44.1 % (42.0-52.0); HGB - HEMOGLOBIN 14.6 g/dL (14.0-18.0); LYMPHOCYTES # (AUTO) 0.7 10^3/uL (1.5-3.5); LYMPHOCYTES % (AUTO) 8.6 %; MEAN CORPUSCULAR HEMOGLOBIN 31.9 pg (27.0-31.0); MEAN CORPUSCULAR HGB CONC 33.1 g/dL (32.0-36.0); MEAN CORPUSCULAR VOLUME 96.3 fL (80.0-94.0); MONOCYTES # (AUTO) 0.7 10^3/uL (0.0-1.0); MONOCYTES % (AUTO) 8.9 %; NEUTROPHILS # (AUTO) 6.1 10^3/uL (1.5-6.6); NEUTROPHILS % (AUTO) 79.9 %; PLT - PLATELET COUNT 148 10^3/uL (130-450); RED BLOOD COUNT 4.58 10^6/uL (4.70-6.10); RED CELL DISTRIBUTION WIDTH 12.3 % (12.0-15.0); WHITE BLOOD COUNT 7.7 x10^3/uL (4.8-10.8)
[2021-12-29 15:19] LABS: THYROID STIMULATING HORMONE 1.24 uIU/mL (0.34-5.60)
[2021-12-29 15:24] LABS: ALBUMIN 3.3 g/dL (3.2-5.5); ALBUMIN/GLOBULIN RATIO 1.2 (1.0-2.2); ALKALINE PHOSPHATASE 54 IU/L (42-121); ALT ALANINE AMINOTRANSFERASE 13 IU/L (10-60); AST ASPARTATE AMINOTRANSFERASE 28 IU/L (10-42); BILIRUBIN,TOTAL 0.4 mg/dL (0.2-1.0); BUN - BLOOD UREA NITROGEN 12 mg/dL (6-20); CALCIUM 8.7 mg/dL (8.5-10.3); CARBON DIOXIDE - CO2 30 mmol/L (21-32); CHLORIDE 99 mmol/L (101-111); GFR - MDRD 73 (>89); GLUCOSE 80 mg/dL (70-100); POTASSIUM 3.4 mmol/L (3.5-5.0); SODIUM 138 mmol/L (135-145)
[2021-12-29 15:28] LABS: CRP - C-REACTIVE PROTEIN < 1.0 mg/dL (0-1.0)
[2022-01-01 15:16] LABS: HIV AG/AB 4TH GEN NON-REACTIVE (NON-REACTIVE)
[2022-01-01 15:47] LABS: NIL 0.02 IU/mL
[2022-01-02 23:02] LABS: ANA PATTERN Nuclear, Homogeneous; ANA SCREEN POSITIVE (NEGATIVE); ANA TITER 1:40 titer
== END 2021-12-29 10:01 | disposition home or self-care (01) ==
LOC: LAB.S 10:00
PROVIDERS: ATTEND Registered Nurse
DX: R62.7 Adult failure to thrive (principal); R63.4 Abnormal weight loss; R73.9 Hyperglycemia, unspecified; M43.16 Spondylolisthesis, lumbar region; M47.816 Spondylosis without myelopathy or radiculopathy, lumbar region; M48.061 Spinal stenosis, lumbar region without neurogenic claudication
CPT/HCPCS: 36415; 72110; 80053; 82607; 83036; 84443; 85025; 85651; 86038; 86140; 86480; 86704; G0475; 81599; 87389

== ENCOUNTER 2021-12-29 15:29 | Emergency (ER) | payer MEDICARE, OTHER ==
[2021-12-29] MEDS ORDERED: LORazepam 1 MG TABLET PO STA (15:44)
--- NOTE | 2021-12-29 15:44 | ED Physician Documentation ---
PD HPI MHE - Stated complaint Stated Complaint: MHE - Chief complaint Chief Complaint: MHE - History obtained from History obtained from: Patient - Additional information Additional information: 76-year-old gentleman presents by private vehicle accompanied by friend wanting to be admitted for an exacerbation of PTSD. Since. He has been compliant with his medications and denies suicidal or homicidal ideation.. This afternoon has been having severe flashbacks of [place]. Review of Systems Ten Systems: 10 systems reviewed and negative Throat: denies: Dental pain / toothache Cardiac: denies: Chest pain / pressure, Palpitations Respiratory: denies: Dyspnea, Cough PD PAST MEDICAL HISTORY - Past Medical History Cardiovascular: Hypertension, High cholesterol, [place] Respiratory: None Neuro: Seizure disorder Endocrine/Autoimmune: None GI: GERD : None HEENT: None Psych: Depression, Anxiety, Panic attacks, Post traumatic stress disorder Musculoskeletal: None Derm: None - Past Surgical History Past Surgical History: Yes General: Other Cardiovascular: Coronary stent - Present Medications Home Medications: Ambulatory Orders Medication Instructions Recorded Confirmed Atorvastatin Calcium 80 mg PO DAILY 11/18/15 11/07/21 Levetiracetam [Keppra] 750 mg PO BID 11/18/15 11/07/21 Metoprolol Tartrate 12.5 mg PO BID 11/18/15 11/07/21 Fluoride (Sodium) [Prevident 5000 1 applic TOP DAILY PM 09/11/20 11/07/21 Dry Mouth] Ibuprofen [Motrin] 600 mg PO Q6H PRN 09/11/20 11/07/21 Apixaban [Eliquis] 5 mg PO DAILY 11/07/21 11/07/21 Aspirin EC [Ecotrin] 81 mg PO DAILY 11/07/21 11/07/21 Escitalopram [Lexapro] 40 mg PO DAILY 11/07/21 11/07/21 Pantoprazole [Protonix] 40 mg PO DAILY 11/07/21 11/07/21 Sildenafil Citrate 100 mg PO PRN PRN 11/07/21 11/07/21 Baclofen [Lioresal] 10 mg PO TID PRN #10 tablet 11/08/21 - Allergies Allergies/Adverse Reactions: Allergies Allergy/AdvReac Type Severity Reaction Status Date / Time fluoxetine AdvReac Anxiety Verified 12/29/21 15:42 oxycodone HCl * AdvReac Hallucinati Verified 12/29/21 15:42 [From OxyContin] ons - Social History Does the pt smoke?: No Smoking Status: Never smoker Does the pt drink ETOH?: No Does the pt have substance abuse?: Yes - Immunizations Immunizations are current?: Yes - POLST Patient has POLST: No PD ED PE NORMAL - Vitals Vital signs reviewed: Yes - General General: Alert and oriented X 3, No acute distress - HEENT HEENT: PERRL, EOMI - Neck Neck: Supple, no meningeal sign, No bony TTP - Cardiac Cardiac: RRR (3 out of 6 systolic murmur decrescendo heard best at the left upper sternal border) - Respiratory Respiratory: No respiratory distress, Clear bilaterally - Abdomen Abdomen: Soft, Non tender - Back Back: No CVA TTP, No spinal TTP - Derm Derm: Normal color, Warm and dry, No rash - Extremities Extremities: No edema, No calf tenderness / cord - Neuro Neuro: Alert and oriented X 3, Normal speech - Psych Psych: Other (Poor eye contact) Results - Vitals Vitals: Vital Signs - 24 hr 12/29/21 12/29/21 12/29/21 15:39 15:50 16:42 Temperature 36.5 C Heart Rate 65 65 62 Respiratory 16 20 18 Rate Blood Pressure 166/100 H 166/100 H O2 Saturation 100 99 99 Oxygen O2 Source Room air - EKG (time done) 1551 Rate: Rate (enter#) (65) Rhythm: NSR [place]: Normal Intervals: Normal MI QRS: Normal Ischemia: Non specific changes (J point elevation V1-V3, flat inferior T waves) Compare to prior EKG: Unchanged from prior EKG (No change from 12/29/21) Computer interpretation: Agree with computer - Labs Labs: Laboratory Tests 12/29/21 12/29/21 12/29/21 15:52 15:54 16:05 Urine Color YELLOW Urine Clarity CLEAR Urine pH 7.5 Ur Specific [place] 1.015 Urine Protein NEGATIVE Urine Glucose (UA) NEGATIVE Urine Ketones NEGATIVE Urine Occult Blood NEGATIVE Urine Nitrite NEGATIVE Urine Bilirubin NEGATIVE Urine Urobilinogen 0.2 (NORMAL) Ur Leukocyte Esterase NEGATIVE Ur Microscopic Review NOT INDICATED Urine Culture Comments NOT INDICATED Salicylates < 6.0 Urine Opiates Screen NEGATIVE Ur Oxycodone Screen NEGATIVE Urine Methadone Screen NEGATIVE Ur Propoxyphene Screen NEGATIVE Acetaminophen < 10 L Ur Barbiturates Screen NEGATIVE Ur Tricyclics Screen NEGATIVE Ur Phencyclidine Scrn NEGATIVE Ur Amphetamine Screen NEGATIVE U Methamphetamines Scrn NEGATIVE U Benzodiazepines Scrn NEGATIVE Urine Cocaine Screen NEGATIVE U Cannabinoids Screen NEGATIVE Ethyl Alcohol < 5.0 SARS-CoV-2 (PCR) NOT DETECTED PD MEDICAL DECISION MAKING - ED course ED course: He had outpatient labs done earlier in the day including CBC, CMP and TSH. These were within normal limits except for borderline low potassium 3.4, borderline low chloride at 99. His TSH was 1.24, normal. CBC unremarkable. 76-year-old gentleman presents with an exacerbation of PTSD although he was feeling better here. Initially wanted to be hospitalized, but we had telepsych see him who felt like he did not need to be hospitalized but did recommend dropping his Lexapro dose from 40 mg to 30 mg a day. In the long run he may need something like Seroquel or Zyprexa but Dr. Arboleda, tele-psychiatrist wanted to see what dropping the Lexapro did first with close outpatient follow-up. Per Dr. Arboleda both patient and comfortable discharge. Departure - Departure Disposition: Home, Self Care Clinical Impression: Psychiatric symptoms, PTSD (post-traumatic stress disorder) Condition: Stable Instructions: ED Panic Attack Comments: Per Dr Arboleda, psychiatrist, decrease lexapro dose to 30mg a day. Followup with your psychaitrist, call saturday for next available appointment. Return if worse.
[2021-12-29 16:16] LABS: ACETAMINOPHEN < 10 ug/mL (10-30); ETOH - ETHANOL < 5.0 mg/dL; SALICYLATE < 6.0 mg/dL
[2021-12-29 16:26] LABS: MUDS CUTOFF CONCENTRATIONS CUTOFF CONC BELOW:
[2021-12-29 16:29] LABS: BILIRUBIN,URINE NEGATIVE (NEGATIVE); GLUCOSE, URINE (UA) NEGATIVE (NEGATIVE); KETONES,URINE (UA) NEGATIVE (NEGATIVE); LEUKOCYTE ESTERASE, URINE NEGATIVE (NEGATIVE); NITRITE,URINE NEGATIVE (NEGATIVE); OCCULT BLOOD,URINE NEGATIVE (NEGATIVE); PH,URINE 7.5 PH (5.0-7.5); PROTEIN,URINE NEGATIVE (NEGATIVE); UROBILINOGEN,URINE 0.2 (NORMAL) E.U./dL (NORMAL)
[2021-12-29 16:32] LABS: CLARITY,URINE CLEAR (CLEAR)
[2021-12-29 16:39] LABS: AMPHETAMINE SCREEN,URINE NEGATIVE (NEGATIVE); BARBITURATE SCREEN,UR NEGATIVE (NEGATIVE); BENZODIAZEPINES SCREEN, URINE NEGATIVE (NEGATIVE); COCAINE SCREEN URINE NEGATIVE (NEGATIVE); METHADONE SCREEN, URINE NEGATIVE (NEGATIVE); METHAMPHETAMINES SCREEN, URINE NEGATIVE (NEGATIVE); OPIATE SCREEN, URINE NEGATIVE (NEGATIVE); OXYCODONE SCREEN, URINE NEGATIVE (NEGATIVE); PROPOXYPHENE SCREEN, URINE NEGATIVE (NEGATIVE); THC CANNABINOID SCREEN, URINE NEGATIVE (NEGATIVE); TRICYCLIC ANTIDEPRESSANT,URINE NEGATIVE (NEGATIVE)
--- NOTE | 2021-12-29 18:27 | TELEPSYCH PHYS NOTE ---
Telepsych Consultation Note Consult: Name: DWAIN PORTILLOB: 1945 DateandTime: 12/29/2021 8:26:02 PM [facility] [place] Length of consult: 45 min This evaluation was conducted via video telepsychiatry with the assistance of onsite staff Reason for consult: exacerbation of PTSD Requested by: DR. CARRINGTON History of Present Illness: The patient is a 76-year-old male with a history of PTSD who presents to the ER complaining of worsening PTSD symptoms. When seen by psychiatry, the patient reported he had a nap earlier today and during the nap he had a vivid dream her flashback detailing events that occurred when the patient was in the [place]. The patient states that this has happened in the past but hasn't happened in the past several weeks. Patient denied suicidal or homicidal ideations but he reported having one or more entities inside his body trying to control his mind. The patient reports that the entities don't talk to him and have not succeeded and taken over his body as a patient is constantly vigilant. The was called. 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 Collateral Contacted: Sergey name:Jani phone number:[phone] relationship to the patient: Sleep issues?: YesSleep Quantity:wanting to sleep inSleep Quality:waking up an hour earlier than usual Psychiatric History/Treatment History: Past diagnoses: PTSD Hospitalizations: YesDescription:one prior admission several years ago Current Treatment:YesMedication management:YesMedications:Receives Lexapro from PCPTherapy:YesTherapyDesc:jose raul Riggs at the [facility] Suicide Assessment: PSS-3: 1) Over the past 2 weeks have you felt down, depressed or hopeless?Yes 2) Over the past 2 weeks have you had thoughts of killing yourself?No 3) Have you ever in your life attempted to kill yourself?No Within the past 6 months? [facility] Assessment: Risk Factors Stressors: See HPI Attempts/Self-injury: No Impulsivity:No Drug/Alcohol History:YesDescription:Alcohol-sober for 38 yrs Trauma History:YesDescription: Access to firearms:No HI/Violence/Property destruction:No Legal: No Family Psych History:No Family History of suicide:No Protective Factors: Can handle stress well?Yes Taoism?No External: Social supports/ Therapeutic relationships: YesDescription: Relationship history: Living situation: lives with Employment: No Education: HS grad, no college Responsibility to family/children/work: YesDescription: Future orientation:YesDescription: Health History: Medical History: Seizure Disorder, GERD Medications & Freq: Lexapro 40 mg daily, atorvastatin 80 mg daily, Keppra 750 mg BID, metoprolol 12.5 mg PO BID, Aspirin 81 mg daily, protonic 40 mg daily Allergies: Fluoxetine, oxycodone Mental Status Exam: Appearance and Attire:Good eye contact Psychomotor agitation:No abnormality Attitude and behavior:Restless Speech:No abnormality, Mood:Anxious Affect:Constricted Thought process:Coherent Thought content:Delusions, feels something inside his body wants to take control Perception:no AVH Intel:Average Abstract:Appropriate Language:No abnormality Orientation:Oriented to person, Oriented to place, Oriented to situation, knew year but not month or season Sense:Normal Knowledge:Mild impairment Memory:Impaired to Immediate recall, Impaired to Recent recall (3 min), Impaired to Remote recall, Can count backwards by 3s Insight:Lack of awareness of problems Judgement:Mild impairment Gait:No abnormality Impression/Risk Assessment: Current Suicide Risk Elevated?No Current Violence Risk Elevated?No Issues with ability to care for self?No Summary: The patient presented to the ER with exacerbation of PTSD symptoms and vague, bizarre delusions. The patient denies AVH, SI, or HI. There is no evidence of dangerousness to self or others. The patient is on a high dose of Lexapro (especially considering his age). Current symptoms may be due to this medication and symptoms may improve if the dose is lowered. No indication for inpatient psychiatric care. Outpatient care recommended. Diagnosis: F43.12 Post-traumatic stress disorder, chronic, Unspecified Psychotic Disorder CPT Codes: 99752 - Psychiatric Diagnostic Evaluation with Medical Services Treatment Plan: General: Level of Care: Outpatient care Psychiatric Clearance: Yes Observation level 1:1 needed?: No Pharmacological: Start Lexapro 30 mg daily. The patient will follow-up with his PCP. The patient and were told the instructions. Patient psychotic?YesWas a standing psychotic ordered?Description: Therapy: Supportive Follow up needed while in the hospital?: No Discussed plan with onsite pricing/signage team member: Yes Who Dr. Carrington Other: Uzair Arboleda MD [facility] List names and roles of persons who participated in consult: Uzair Arboleda MD. [facility]
[2021-12-29 19:09] VITALS: BP 144/79
== END 2021-12-29 19:09 | disposition home or self-care (01) ==
LOC: ED 15:29
DX: F43.12 Post-traumatic stress disorder, chronic (principal); Z20.822 Contact with and (suspected) exposure to COVID-19
CPT/HCPCS: 36415; 80306; 80307; 80320; 80329; 81003; 87635; 90834; 93005; 99283; J8499; Q3014; 80053; 81001; 83690; 84443; 85025; 87086

== ENCOUNTER 2022-01-04 07:26 | Outpatient (CLI) | payer MEDICARE, OTHER ==
[2022-01-04] MEDS ORDERED: IOVERSOL 320 50 ML VIAL ONE (07:43)
[2022-01-04] MEDS ORDERED: IOVERSOL 320 100 ML VIAL IVP ONE ×2 (07:43→10:43)
[2022-01-04 08:01] LABS: CREATININE 0.9 mg/dL (0.6-1.2)
[2022-01-04] MEDS ORDERED: IOVERSOL 320 50 ML VIAL PO ONE (10:43)
--- NOTE | 2022-01-04 12:44 | CT Report ---
PROCEDURE: Abdomen/Pelvis W INDICATIONS: ABN WEIGHT LOSS CONTRAST: IV CONTRAST: Optiray 320 ml: 100 PO CONTRAST: Optiray 320 ml50 TECHNIQUE: After the administration of oral and intravenous contrast, 5 mm thick sections acquired from the diap hragms to the symphysis. 5 mm thick coronal and sagittal reformats were acquired. For radiation dos e reduction, the following was used: automated exposure control, adjustment of mA and/or kV accordin g to patient size. COMPARISON: CT chest 11/11/2021, CT abdomen/pelvis 01/10/2021. FINDINGS: Image quality: Excellent. ABDOMEN: Lung bases: Nodular opacities are seen in the included lateral left upper lobe. Heart size is normal. Solid organs: Liver and spleen are normal in size and enhancement. Gallbladder is unremarkable. Bi liary system is non dilated. Pancreas enhances normally. No adrenal nodules. Kidneys demonstrate n ormal size and enhancement, without hydronephrosis. A 3.6 cm simple cyst is seen at the superior pavan e of the left kidney. Additional smaller renal cysts are noted. Peritoneum and bowel: Bowel loops demonstrate normal wall thickness and caliber. No free fluid or a ir. Stable 2.5 cm ovoid peripherally calcified lesion in the left anterior peritoneal cavity, possib ly the sequela of a prior omental infarct. Nodes and vessels: No retroperitoneal or mesenteric adenopathy by size criteria. Aorta and inferior vena cava are normal in size. Moderate to severe aortic atherosclerotic calcifications. The iliac ve ssels are tortuous. Miscellaneous: No ventral hernias. PELVIS: Genitourinary: Bladder wall thickness is normal. Miscellaneous: Prior bilateral inguinal hernia repairs. Bones: No suspicious bony lesions. No vertebral body compression fractures. Degenerative changes a re seen in the spine. IMPRESSION: 1.No significant abnormality is seen in the abdomen or pelvis to account for the reported symptoms. 2.Nodular opacities are partially imaged in the left upper lobe. Recommend follow-up chest CT as lo mmended on the exam from 11/11/2021. Reviewed by: Demetrio Shah MD on 01/04/2022 12:42 PM PDT Approved by: Demetrio Shah MD on 01/04/2022 12:42 PM PDT Station ID: [id number]
== END 2022-01-04 07:27 | disposition home or self-care (01) ==
LOC: LAB 07:26 → DI 07:27
PROVIDERS: ATTEND Nurse Practitioner Family
DX: R63.4 Abnormal weight loss (principal); R91.8 Other nonspecific abnormal finding of lung field
CPT/HCPCS: 36415; 74177; 82565; 84520; Q9967

== ENCOUNTER 2022-02-08 09:27 | Outpatient (CLI) | payer MEDICARE ==
--- NOTE | 2022-02-08 11:53 | CT Report ---
PROCEDURE: CHEST WO INDICATIONS: ABN IMAGING OF LUNG TECHNIQUE: Noncontrast 1mm axial images were acquired from the pulmonary apices to the posterior costophrenic an gles. Axial 5 mm soft tissue kernel reconstructions were performed as well as 8 mm axial MIP and cor onal and sagittal 5 mm reformations. For radiation dose reduction, the following was used: automate d exposure control, adjustment of mA and/or kV according to patient size. COMPARISON: CT abdomen and pelvis dated 01/04/2022 FINDINGS: Image quality: Excellent. Lungs and pleura: Nodular opacities are as follows: 1. Spiculated mass, left upper lobe, image 178/4, measuring 1.7 cm, suspicious for bronchogenic carci noma. 2. Slightly more anteriorly, there is a second spiculated mass, left upper lobe, measuring approximat kain 1.1 cm in maximum diameter. Reference image 192/4. 3. On image 73/4, there are 3 separate nodular densities in the right upper lobe. These include a allie e solid pulmonary nodule most medially, measuring 0.9 cm, a posterior pleural-based nodule with ill-d efined margins measuring 1.3 cm in diameter, and a lateral some solid pulmonary nodule with ill-defin ed borders abutting the pleura measuring 0.9 cm. 4. On image 92/4, in the posterior aspect of the right upper lobe, is a ill-defined subsolid pulmonar y nodule measuring 2.2 cm. No pleural effusions or pneumothorax. Central and peripheral airways are patent and normal in caliber. Mediastinum: Heart size is normal. No pericardial effusion. Severe coronary artery calcifications. Normal heart size. No mediastinal adenopathy by size criteria. Thoracic aorta and central pulmonary arteries are normal in size. Esophagus is normal in caliber. No hiatal hernia. Bones and chest wall: No suspicious bony lesions. Mild anterior wedging of multiple contiguous thora cic vertebral bodies results in mild increased thoracic kyphosis. No axillary or supraclavicular chuck opathy by size criteria. Thyroid is unremarkable as visualized. Abdomen: Visualized upper abdominal solid organs and bowel loops appear normal in the absence of con trast. IMPRESSION: 1. There are 6 separate suspicious lesions, 2 of which are on the left and 4 of which are on the righ t. There are all in the upper lobes. These can conceivably all represent synchronous primary bronchog enic carcinomas. Alternatively, they can represent foci of atypical infection. 2. Severe coronary artery disease. 3. Presumed osteoporosis. Comment: Recommend referral to a renewal specialist. Consider short-term interval follow-up with CT in approximately 3 months. Patient may eventually require PET/CT and eventual possible percutaneous biopsy, depending upon imaging follow-up and recommendations from the slabber. Reviewed by: Larry Hein MD on 02/08/2022 11:51 AM PDT Approved by: Larry Hein MD on 02/08/2022 11:51 AM PDT Station ID: [id number]
== END 2022-02-08 09:28 | disposition home or self-care (01) ==
LOC: DI 09:27
PROVIDERS: ATTEND Nurse Practitioner Family
DX: R91.8 Other nonspecific abnormal finding of lung field (principal)

== ENCOUNTER 2022-03-14 13:10 | Outpatient (CLI) | payer OTHER | END 2022-03-14 13:11 | disposition EMS.NT | LOC: EMS 13:10 | DX: K59.00 Constipation, unspecified (principal) ==

== ENCOUNTER 2022-03-14 14:08 | Emergency (ER) | payer MEDICARE, OTHER ==
--- NOTE | 2022-03-14 14:57 | ED Physician Documentation ---
PD HPI ABD PAIN - Stated complaint Stated Complaint: CONSTIPATION - Chief complaint Chief Complaint: Abd Pain - History obtained from History obtained from: Patient - History of Present Illness Timing - onset: Today Timing - duration: Days (1) Timing - details: Gradual onset Quality: Aching (pain in rectum; denies abd pain. feeling of rectal stool fullness that he cannot push out. Tried getting it out himself with finger at home. gave an emena, without success.) Location: Other (just at rectal area) Radiation: No: Lower back, Left flank, Right flank Improved by: Other (tried to have BM but not much out. Did get small firm amount out with digital at home but still feels stool impaction at rectum.) Associated symptoms: Constipation. No: Fever, Nausea, Vomiting, Diarrhea, Melena, Hematochezia Similar symptoms before: Has not had sx before Recently seen: Not recently seen Review of Systems Constitutional: denies: Fever, Chills Nose: denies: Rhinorrhea / runny nose, Congestion Throat: denies: Sore throat Cardiac: denies: Chest pain / pressure, Palpitations Respiratory: denies: Dyspnea, Cough GI: reports: Constipation. denies: Abdominal Pain, Nausea, Vomiting, Diarrhea, Bloody / black stool : denies: Dysuria, Frequency PD PAST MEDICAL HISTORY - Past Medical History Cardiovascular: Hypertension, High cholesterol, [place] Respiratory: None Neuro: Seizure disorder Endocrine/Autoimmune: None GI: GERD : None HEENT: None Psych: Depression, Anxiety, Panic attacks, Post traumatic stress disorder Musculoskeletal: None Derm: None - Past Surgical History Past Surgical History: Yes General: Other Cardiovascular: Coronary stent - Present Medications Home Medications: Ambulatory Orders Medication Instructions Recorded Confirmed Atorvastatin Calcium 80 mg PO DAILY 11/18/15 11/07/21 Levetiracetam [Keppra] 750 mg PO BID 11/18/15 11/07/21 Metoprolol Tartrate 12.5 mg PO BID 11/18/15 11/07/21 Fluoride (Sodium) [Prevident 5000 1 applic TOP DAILY PM 09/11/20 11/07/21 Dry Mouth] Ibuprofen [Motrin] 600 mg PO Q6H PRN 09/11/20 11/07/21 Apixaban [Eliquis] 5 mg PO DAILY 11/07/21 11/07/21 Aspirin EC [Ecotrin] 81 mg PO DAILY 11/07/21 11/07/21 Escitalopram [Lexapro] 40 mg PO DAILY 11/07/21 11/07/21 Pantoprazole [Protonix] 40 mg PO DAILY 11/07/21 11/07/21 Sildenafil Citrate 100 mg PO PRN PRN 11/07/21 11/07/21 Baclofen [Lioresal] 10 mg PO TID PRN #10 tablet 11/08/21 Hydrocortisone Acetate 25 mg RC DAILY 6 Days #6 supp.rect 03/14/22 - Allergies Allergies/Adverse Reactions: Allergies Allergy/AdvReac Type Severity Reaction Status Date / Time fluoxetine AdvReac Anxiety Verified 03/14/22 14:15 oxycodone HCl * AdvReac Hallucinati Verified 03/14/22 14:15 [From OxyContin] ons - Social History Does the pt smoke?: No Smoking Status: Never smoker Does the pt drink ETOH?: No Does the pt have substance abuse?: Yes - Immunizations Immunizations are current?: Yes - POLST Patient has POLST: No PD ED PE NORMAL - Vitals Vital signs reviewed: Yes - General General: Alert and oriented X 3, No acute distress, Well developed/nourished - Neck Neck: Supple, no meningeal sign, No adenopathy - Cardiac Cardiac: RRR, No murmur - Respiratory Respiratory: Clear bilaterally - Abdomen Abdomen: Normal bowel sounds, Soft, Non tender, Non distended, No organomegaly - Male Male : Deferred - Rectal Rectal: Other (external inflammed hemorrhoid on left and feeling of internal hemorrhoid as well. Very tender. Does not feel thrombosed. Ball of stool about tennis ball sized in vault, broken up digitially (with discomfort from that, but was just few seconds doing it). ) - Derm Derm: Normal color, Warm and dry - Extremities Extremities: No edema, No calf tenderness / cord - Neuro Neuro: Alert and oriented X 3, No motor deficit, Normal speech Results - Vitals Vitals: Vital Signs - 24 hr 03/14/22 03/14/22 14:11 16:24 Temperature 36.7 C 36.7 C Heart Rate 62 62 Respiratory 14 16 Rate Blood Pressure 107/74 142/85 H O2 Saturation 97 99 Oxygen O2 Source Room air PD MEDICAL DECISION MAKING - ED course Complexity details: re-evaluated patient (He had some Toradol for pain and also a enema that produced some stool out. He is feeling much more comfortable at this time.), considered differential (Rectal exam showed a almost baseball sized ball of stool in the rectum that was broken up digitally and partly removed. Marked tenderness because of hemorrhoids as well. No thrombosis. No blood in the stool.), d/w patient Departure - Departure Disposition: 01 Home, Self Care Clinical Impression: Constipation by outlet obstruction, Fecal impaction in rectum Hemorrhoids Qualifiers: Hemorrhoid type: unspecified Qualified Code(s): K64.9 - Unspecified hemorrhoids Condition: Stable Record reviewed to determine appropriate education?: Yes Instructions: ED Constipation, ED Hemorrhoids Follow-Up: Adela Stokes ARNP [Primary Care Provider] - Prescriptions: Hydrocortisone Acetate 25 mg RC DAILY 6 Days #6 supp.rect Comments: You do have some inflamed hemorrhoids at the rectum and just internal at the rectum. This could be accounting for a lot of your discomfort in the area. There was some rectal stool impaction as well. This should come out more easily now that it is broken up a bit. I would suggest using some Tylenol every 4-6 hours for pains. Continue with a daily or twice daily stool softener over the next several days to week. For the hemorrhoids you can use hydrocortisone anti-inflammatory suppository or cream daily to help with that. Recheck if not improved well over the next few days. I transmitted your prescription to [facility] in [place]. Discharge Date/Time: 03/14/22 16:25
[2022-03-14] MEDS ORDERED: KETOROLAC 30 MG/ML VIAL IM STA (15:11)
[2022-03-14] MEDS ORDERED: SALINE ENEMA 133 ML BOTTLE RC STA (15:11)
[2022-03-14] MEDS ORDERED: LACTULOSE 10 GM /15 ML UDC PO STA (15:49)
[2022-03-14 16:25] VITALS: BP 142/85
== END 2022-03-14 16:25 | disposition home or self-care (01) ==
LOC: ED 14:08
DX: K59.02 Outlet dysfunction constipation (principal); K64.9 Unspecified hemorrhoids
CPT/HCPCS: 96372; 99282; 99283; A9270

== ENCOUNTER 2022-04-05 15:06 | Emergency (ER) | payer OTHER ==
[2022-04-05] MEDS ORDERED: GLUCAGON 1 MG/ML VIAL IVP STA ×2 (15:40→16:34)
--- NOTE | 2022-04-05 15:43 | ED Physician Documentation ---
History of Present Illness - Stated complaint Stated Complaint: OBJECT IN THROAT - Chief complaint Chief Complaint: General - History obtained from History obtained from: Patient - Additonal information Additional information: This is a 76-year-old gentleman who presents by private vehicle feeling like something is stuck in his throat. He was eating lunch today comprised of a hamburger and Sinhala fries and feels like something is stuck in the mid chest. He cannot tolerate his secretions. This is a recurrent issue, he had an EGD for this November of last year showin. Patient with significant scar tissue and angularity of the GE junction, however transverse able without any complication. No significant retained food food bolus, phytobezoar at this level. No significant anatomic stricture or obstruction. 2. Pylorus narrow however able to intubate without any complication, likely a consequence of normal contraction. Reevaluation revealed a widely patent pyloric outlet 3. Inflammatory changes of the first portion of the duodenum 4. Antrum noted for diffuse gastritis/gastropathy 5. GE junction changes consistent with reflux. The surgeon noted a "shelf" at this level that could cause food to be hung up. Review of Systems Ten Systems: 10 systems reviewed and negative Cardiac: denies: Palpitations Respiratory: denies: Dyspnea, Cough PD PAST MEDICAL HISTORY - Past Medical History Cardiovascular: Hypertension, High cholesterol, [place] Respiratory: None Neuro: Seizure disorder Endocrine/Autoimmune: None GI: GERD : None HEENT: None Psych: Depression, Anxiety, Panic attacks, Post traumatic stress disorder Musculoskeletal: None Derm: None - Past Surgical History Past Surgical History: Yes General: Other Cardiovascular: Coronary stent - Present Medications Home Medications: Ambulatory Orders Medication Instructions Recorded Confirmed Atorvastatin Calcium 80 mg PO DAILY 11/18/15 11/07/21 Levetiracetam [Keppra] 750 mg PO BID 11/18/15 11/07/21 Metoprolol Tartrate 12.5 mg PO BID 11/18/15 11/07/21 Fluoride (Sodium) [Prevident 5000 1 applic TOP DAILY PM 09/11/20 11/07/21 Dry Mouth] Ibuprofen [Motrin] 600 mg PO Q6H PRN 09/11/20 11/07/21 Apixaban [Eliquis] 5 mg PO DAILY 11/07/21 11/07/21 Aspirin EC [Ecotrin] 81 mg PO DAILY 11/07/21 11/07/21 Escitalopram [Lexapro] 40 mg PO DAILY 11/07/21 11/07/21 Pantoprazole [Protonix] 40 mg PO DAILY 11/07/21 11/07/21 Sildenafil Citrate 100 mg PO PRN PRN 11/07/21 11/07/21 Baclofen [Lioresal] 10 mg PO TID PRN #10 tablet 11/08/21 Hydrocortisone Acetate 25 mg RC DAILY 6 Days #6 supp.rect 03/14/22 - Allergies Allergies/Adverse Reactions: Allergies Allergy/AdvReac Type Severity Reaction Status Date / Time fluoxetine AdvReac Anxiety Verified 04/05/22 15:17 oxycodone HCl * AdvReac Hallucinati Verified 04/05/22 15:17 [From OxyContin] ons - Social History Does the pt smoke?: No Smoking Status: Never smoker Does the pt drink ETOH?: No Does the pt have substance abuse?: Yes - Immunizations Immunizations are current?: Yes - POLST Patient has POLST: No PD ED PE NORMAL - Vitals Vital signs reviewed: Yes - General General: Alert and oriented X 3, Other (He is holding a emesis bag and spitting into it, phonation is normal.) - HEENT HEENT: PERRL, EOMI - Neck Neck: Supple, no meningeal sign, No bony TTP - Cardiac Cardiac: RRR, Other (3 out of 6 decrescendo holosystolic murmur) - Respiratory Respiratory: No respiratory distress, Clear bilaterally - Abdomen Abdomen: Soft, Non tender - Derm Derm: Normal color, Warm and dry - Neuro Neuro: Alert and oriented X 3, Normal speech Results - Vitals Vitals: Vital Signs - 24 hr 04/05/22 04/05/22 15:13 16:30 Temperature 36.7 C Heart Rate 65 67 Respiratory 16 17 Rate Blood Pressure 124/70 125/78 O2 Saturation 97 100 Oxygen O2 Source Room air - Labs Labs: Laboratory Tests 04/05/22 04/05/22 15:49 15:49 WBC 7.1 RBC 4.57 L Hgb 14.6 Hct 42.0 MCV 91.9 MCH 31.9 H MCHC 34.8 RDW 12.8 Plt Count 143 MPV 9.4 Neut # (Auto) 5.1 Lymph # (Auto) 1.2 L Cochran # (Auto) 0.7 Eos # (Auto) 0.1 Baso # (Auto) 0.0 Absolute Nucleated RBC 0.00 Nucleated RBC % 0.0 Sodium 138 Potassium 3.8 Chloride 101 Carbon Dioxide 29 Anion Gap 8.0 BUN 19 Creatinine 1.1 Estimated GFR (MDRD) 65 L Glucose 108 H Calcium 9.6 PD MEDICAL DECISION MAKING - ED course ED course: 76-year-old gentleman presents with an esophageal food impaction, initially given 2 mg of glucagon and did vomit up some food, but was still unable to tolerate his secretions, a bolus of glucagon was repeated and he felt like the food bolus resolved and passed a p.o. challenge. Departure - Departure Disposition: 01 Home, Self Care Clinical Impression: Esophageal obstruction due to food impaction Condition: Good Record reviewed to determine appropriate education?: Yes Instructions: ED Foreign Body Esophageal Rslv Comments: Chew your food well, follow-up with your primary care physician, next available appointment
[2022-04-05 15:56] LABS: BASOPHILS % (AUTO) 0.6 %; EOSINOPHILS # (AUTO) 0.1 10^3/uL (0.0-0.7); EOSINOPHILS % (AUTO) 1.8 %; HGB - HEMOGLOBIN 14.6 g/dL (14.0-18.0); LYMPHOCYTES # (AUTO) 1.2 10^3/uL (1.5-3.5); LYMPHOCYTES % (AUTO) 16.7 %; MEAN CORPUSCULAR HEMOGLOBIN 31.9 pg (27.0-31.0); MEAN CORPUSCULAR HGB CONC 34.8 g/dL (32.0-36.0); MEAN CORPUSCULAR VOLUME 91.9 fL (80.0-94.0); MEAN PLATELET VOLUME 9.4 fL (7.4-11.4); MONOCYTES # (AUTO) 0.7 10^3/uL (0.0-1.0); MONOCYTES % (AUTO) 9.6 %; NEUTROPHILS # (AUTO) 5.1 10^3/uL (1.5-6.6); PLT - PLATELET COUNT 143 10^3/uL (130-450); RED BLOOD COUNT 4.57 10^6/uL (4.70-6.10); RED CELL DISTRIBUTION WIDTH 12.8 % (12.0-15.0); WHITE BLOOD COUNT 7.1 x10^3/uL (4.8-10.8)
[2022-04-05 16:05] LABS: CALCIUM 9.6 mg/dL (8.5-10.3); CREATININE 1.1 mg/dL (0.6-1.2); POTASSIUM 3.8 mmol/L (3.5-5.0)
[2022-04-05 16:38] VITALS: BP 125/78
== END 2022-04-05 17:35 | disposition home or self-care (01) ==
LOC: ED 15:06
DX: K22.2 Esophageal obstruction (principal)
CPT/HCPCS: 36415; 80048; 85025; 96374; 96376; 99282

== ENCOUNTER 2022-06-24 03:16 | Outpatient (CLI) | payer OTHER | END 2022-06-24 03:17 | disposition critical access hospital (66) | LOC: EMS 03:16 | DX: R07.89 Other chest pain (principal) | CPT/HCPCS: A0425; A0427 ==

== ENCOUNTER 2022-06-24 03:34 | Emergency (ER) | payer OTHER ==
--- NOTE | 2022-06-24 03:48 | ED Physician Documentation ---
PD HPI CHEST PAIN - Stated complaint Stated Complaint: CHEST PX - History obtained from History obtained from: Patient, EMS - History of Present Illness Timing - onset: Today Timing - onset during: Sleep Timing - duration: Hours (3) Timing - details: Abrupt onset, Now resolved Quality: Pressure, Sharp, Pain Location: Substernal Radiation: No: Jaw, Neck, Back, Abdominal, Left upper extremity, Right upper extremity Improved by: Other (time) Worsened by: No: Exertion, Inspiration, Eating, Movement, Palpation, Position Associated symptoms: No: Shortness of air, Diaphoresis, Nausea, Vomiting, Feeling faint / dizzy, General Weakness, Palpitations, Cough Similar symptoms before: No diagnosis Recently seen: Not recently seen - Additional information Additional information: 76-year-old Lonnie Mensah he has a prior history of coronary artery disease and he has been having episodes of chest pain at night while asleep. This morning he awoke with chest pain and this lasted nearly 3 hours and completely resolved when he stepped into the ambulance. He denies any radiation diaphoresis lightheadedness or dyspnea associated with this. He did not do any exertion while he had the pain. He has had a similar pain the night previously. He denies any current illness. Review of Systems Constitutional: denies: Fever Ears: denies: Ear pain Nose: denies: Congestion Throat: denies: Sore throat Cardiac: reports: Chest pain / pressure. denies: Palpitations, Pedal edema, Calf pain Respiratory: denies: Dyspnea, Cough, Wheezing GI: denies: Abdominal Pain, Nausea, Vomiting, Constipation, Diarrhea : denies: Dysuria, Frequency Skin: denies: Rash Musculoskeletal: denies: Neck pain, Back pain, Extremity pain Neurologic: denies: Generalized weakness, Focal weakness, Numbness PD PAST MEDICAL HISTORY - Past Medical History Cardiovascular: Hypertension, High cholesterol, [place] Respiratory: None Neuro: Seizure disorder Endocrine/Autoimmune: None GI: GERD : None HEENT: None Psych: Depression, Anxiety, Panic attacks, Post traumatic stress disorder Musculoskeletal: None Derm: None - Past Surgical History Past Surgical History: Yes General: Other Cardiovascular: Coronary stent - Present Medications Home Medications: Ambulatory Orders Medication Instructions Recorded Confirmed Atorvastatin Calcium 80 mg PO DAILY 11/18/15 06/24/22 Levetiracetam [Keppra] 750 mg PO BID 11/18/15 06/24/22 Metoprolol Tartrate 12.5 mg PO BID 11/18/15 06/24/22 Fluoride (Sodium) [Prevident 5000 1 applic TOP DAILY PM 09/11/20 06/24/22 Dry Mouth] Ibuprofen [Motrin] 600 mg PO Q6H PRN 09/11/20 06/24/22 Apixaban [Eliquis] 2.5 mg PO DAILY 11/07/21 06/24/22 Aspirin EC [Ecotrin] 81 mg PO DAILY 11/07/21 06/24/22 Pantoprazole [Protonix] 40 mg PO DAILY 11/07/21 06/24/22 Sildenafil Citrate 100 mg PO PRN PRN 11/07/21 06/24/22 Baclofen [Lioresal] 10 mg PO TID PRN #10 tablet 11/08/21 06/24/22 DULoxetine [Cymbalta] 60 mg PO DAILY 06/24/22 06/24/22 QUEtiapine [SEROquel] 25 mg PO BID 06/24/22 06/24/22 - Allergies Allergies/Adverse Reactions: Allergies Allergy/AdvReac Type Severity Reaction Status Date / Time fluoxetine AdvReac Anxiety Verified 06/24/22 03:47 oxycodone HCl * AdvReac Hallucinati Verified 06/24/22 03:47 [From OxyContin] ons - Social History Does the pt smoke?: No Smoking Status: Never smoker Does the pt drink ETOH?: No Does the pt have substance abuse?: Yes - Immunizations Immunizations are current?: Yes - POLST Patient has POLST: No PD ED PE NORMAL - Vitals Vital signs reviewed: Yes (Normal) - General General: Alert and oriented X 3, No acute distress, Well developed/nourished - HEENT HEENT: Atraumatic, PERRL, EOMI - Neck Neck: Supple, no meningeal sign, No bony TTP - Cardiac Cardiac: RRR, Other (no chest wall tenderness. 2/6 holosystolic murmer at LSB Machine like quality. ) - Respiratory Respiratory: No respiratory distress, Clear bilaterally - Abdomen Abdomen: Soft, Non tender - Back Back: No CVA TTP, No spinal TTP - Derm Derm: Normal color, Warm and dry, No rash - Extremities Extremities: No deformity, No edema - Neuro Neuro: Alert and oriented X 3, administrative specialist 2-12 intact, No motor deficit, No sensory deficit, Normal speech Eye Opening: Spontaneous Motor: Obeys Commands Verbal: Oriented GCS Score: 15 - Psych Psych: Normal mood, Normal affect Results - Vitals Vitals: Vital Signs - 24 hr 06/24/22 06/24/22 06/24/22 03:43 04:12 06:16 Temperature 36.4 C L Heart Rate 62 63 66 Respiratory 16 26 H 28 H Rate Blood Pressure 119/80 109/82 H 113/69 O2 Saturation 100 100 99 Oxygen O2 Source Room air - EKG (time done) 0346 Rate: Rate (enter#) (59) Ischemia: ST elevation c/w ischemia (V2 1.5mV V3 0.5mV) Compare to prior EKG: Unchanged from prior EKG (SPT 01-05-22 no changes ) Computer interpretation: Agree with computer - Labs Labs: Laboratory Tests 06/24/22 06/24/22 06/24/22 04:04 04:04 04:04 WBC 6.2 RBC 4.37 L Hgb 13.7 L Hct 40.7 L MCV 93.1 MCH 31.4 H MCHC 33.7 RDW 12.4 Plt Count 134 MPV 9.8 Neut # (Auto) 3.7 Lymph # (Auto) 1.2 L Cochran # (Auto) 0.9 Eos # (Auto) 0.4 Baso # (Auto) 0.1 Absolute Nucleated RBC 0.00 Nucleated RBC % 0.0 Sodium 139 Potassium 4.6 Chloride 104 Carbon Dioxide 25 Anion Gap 10.0 BUN 19 Creatinine 1.0 Estimated GFR (MDRD) 73 L Glucose 88 Calcium 8.4 L Total Bilirubin 1.2 H AST 33 ALT 14 Alkaline Phosphatase 59 Troponin I High Sens 25.7 H* Total Protein 6.4 L Albumin 3.2 Globulin 3.2 Albumin/Globulin Ratio 1.0 Lipase 30 06/24/22 06:19 WBC RBC Hgb Hct MCV MCH MCHC RDW Plt Count MPV Neut # (Auto) Lymph # (Auto) Cochran # (Auto) Eos # (Auto) Baso # (Auto) Absolute Nucleated RBC Nucleated RBC % Sodium Potassium Chloride Carbon Dioxide Anion Gap BUN Creatinine Estimated GFR (MDRD) Glucose Calcium Total Bilirubin AST ALT Alkaline Phosphatase Troponin I High Sens 44.5 H* Total Protein Albumin Globulin Albumin/Globulin Ratio Lipase - Rads (name of study) chest Radiology: Prelim report reviewed (Impression: Minimal bilateral subsegmental atelectasis and/or scarring.), EMP read indepedently, See rad report PD MEDICAL DECISION MAKING - ED course Complexity details: reviewed old records, reviewed results, re-evaluated patient, considered differential, d/w patient ED course: 76-year-old male with resolved chest pain has an electrocardiogram that looks identical to his prior electrocardiogram but today he has a mild elevation in his troponin. He has a history consistent with a coronary syndrome and has a prior history. He is unable to tell me where or who he saw for his prior heart condition. When his arrives she is able to fill in some details and thinks he was treated at the [facility] where he had 3 stents placed maybe more than 20 years ago. The patient has further elevation in his troponin consistent with an NSTEMI and not a significant amount of troponin. He is pain-free he is on Eliquis and he is given an aspirin today. Further anticoagulation is not pursued. Blood pressure is normal. At shift change his care is turned over to Dr. Croft while we attempt to find a cardiac bed. Departure - Departure Disposition: 02 Transfer Acute Care Hosp Clinical Impression: NSTEMI (non-ST elevated myocardial infarction)
[2022-06-24 04:16] LABS: BASOPHILS # (AUTO) 0.1 10^3/uL (0.0-0.1); BASOPHILS % (AUTO) 0.8 %; EOSINOPHILS # (AUTO) 0.4 10^3/uL (0.0-0.7); EOSINOPHILS % (AUTO) 6.1 %; HCT - HEMATOCRIT 40.7 % (42.0-52.0); HGB - HEMOGLOBIN 13.7 g/dL (14.0-18.0); LYMPHOCYTES # (AUTO) 1.2 10^3/uL (1.5-3.5); LYMPHOCYTES % (AUTO) 19.9 %; MEAN CORPUSCULAR HEMOGLOBIN 31.4 pg (27.0-31.0); MEAN CORPUSCULAR HGB CONC 33.7 g/dL (32.0-36.0); MEAN CORPUSCULAR VOLUME 93.1 fL (80.0-94.0); MEAN PLATELET VOLUME 9.8 fL (7.4-11.4); MONOCYTES # (AUTO) 0.9 10^3/uL (0.0-1.0); MONOCYTES % (AUTO) 13.8 %; NEUTROPHILS # (AUTO) 3.7 10^3/uL (1.5-6.6); NEUTROPHILS % (AUTO) 59.1 %; PLT - PLATELET COUNT 134 10^3/uL (130-450); RED BLOOD COUNT 4.37 10^6/uL (4.70-6.10); RED CELL DISTRIBUTION WIDTH 12.4 % (12.0-15.0); WHITE BLOOD COUNT 6.2 x10^3/uL (4.8-10.8)
[2022-06-24 04:31] LABS: ALBUMIN 3.2 g/dL (3.2-5.5); BILIRUBIN,TOTAL 1.2 mg/dL (0.2-1.0); CALCIUM 8.4 mg/dL (8.5-10.3); POTASSIUM 4.6 mmol/L (3.5-5.0); TOTAL PROTEIN 6.4 g/dL (6.7-8.2)
--- NOTE | 2022-06-24 07:58 | XRAY Report ---
PROCEDURE: Chest 1 View X-Ray INDICATIONS: chest pain TECHNIQUE: One view of the chest was acquired. COMPARISON: 11/07/2021. Correlation is also made with chest CT, 02/08/2022 FINDINGS: Surgical changes and devices: None. Lungs and pleura: No pleural effusions or pneumothorax. Minimal streaky opacity can be seen at the l rene bases. Lungs are otherwise clear. Mediastinum: Mediastinal contours appear normal. Heart size is normal. Bones and chest wall: No suspicious bony lesions. Age-appropriate degenerative changes are seen. Overlying soft tissues appear unremarkable. IMPRESSION: Nearly normal study, with likely atelectasis at the lung bases. Note: No significant discrepancy from the preliminary report. Reviewed by: Nael Pride MD on 06/24/2022 6:57 AM JOHN Approved by: Nael Pride MD on 06/24/2022 6:57 AM JOHN Station ID: [id number]
[2022-06-24 08:49] LABS: CORONAVIRUS 229E-RESP PCR NOT DETECTED; CORONAVIRUS HKU1-RESP PCR NOT DETECTED; CORONAVIRUS NL63-RESP PCR NOT DETECTED; CORONAVIRUS OC43-RESP PCR NOT DETECTED; HUMAN METAPNEUMOVIRUS NOT DETECTED; INFLUENZA A- RESP PCR PANEL NOT DETECTED; RHINOVIRUS/ENTEROVIRUS NOT DETECTED; SARS-CoV-2 -RESP PCR PANEL NOT DETECTED
[2022-06-24 08:50] LABS: B. PARAPERTUSSIS- RESP PCR PAN NOT DETECTED; B. PERTUSSIS- RESP PCR PANEL NOT DETECTED; C. PNEUMONIAE- RESP PCR PANEL NOT DETECTED; INFLUENZA B - RESP PCR PANEL NOT DETECTED; M. PNEUMONIAE- RESP PCR PANEL NOT DETECTED; PARAINFLUENZA VIRUS 1 NOT DETECTED; PARAINFLUENZA VIRUS 2 NOT DETECTED; PARAINFLUENZA VIRUS 3 NOT DETECTED; PARAINFLUENZA VIRUS 4 NOT DETECTED; RSV- RESP PCR PANEL NOT DETECTED
[2022-06-24] MEDS ORDERED: ENOXAPARIN 60 MG/0.6 ML SYRINGE SUBQ STA (11:52)
[2022-06-24 14:00] VITALS: BP 117/76
== END 2022-06-24 15:27 | disposition short-term general hospital (02) ==
LOC: EDUNIT# → ED 03:34
DX: I21.4 Non-ST elevation (NSTEMI) myocardial infarction (principal); I10 Essential (primary) hypertension; I25.2 Old myocardial infarction; Z79.01 Long term (current) use of anticoagulants; Z20.822 Contact with and (suspected) exposure to COVID-19
CPT/HCPCS: 36415; 71045; 80053; 83690; 84484; 85025; 87633; 93005; 96372; 99283; 99285; J1650

== ENCOUNTER 2022-06-24 15:15 | Outpatient (CLI) | payer OTHER | END 2022-06-24 15:16 | disposition short-term general hospital (02) | LOC: EMS 15:15 | PROVIDERS: ATTEND Emergency Medicine | DX: I21.4 Non-ST elevation (NSTEMI) myocardial infarction (principal) | CPT/HCPCS: A0425; A0428 ==

== ENCOUNTER 2022-08-23 09:14 | Day surgery (SDC) | payer OTHER ==
[~2022-08-23 09:14] MED LIST: CYCLOPENTOLATE 1% OPHTH DROPS 2 ML ONE; KETOROLAC 0.45% OPHTH DROPS ONE; PHENYLEPHRINE 2.5% OPHTH 2 ML DROPS ONE; PROPARACAINE 0.5% OPHTH DROPS 15 ML ONE
[2022-08-23] MEDS ORDERED: LACTATED RINGERS 1,000 ML IV ONE ×2 (09:17→10:51)
--- NOTE | 2022-08-23 10:16 | ANESTHESIA ---
Pre-Anesthesia VS, & Labs - Diagnosis right eye senile combined cataract - Procedure right eye cataract extraction with IOL implant Vital Signs: Temp Pulse Resp BP Pulse Ox O2 Flow Rate 36.5 C 68 12 133/76 H 100 0 08/23/22 09:25 08/23/22 09:25 08/23/22 09:25 08/23/22 09:25 08/23/22 09:25 08/23/22 09:25 Height: 6 ft Weight (kg): 71 kg Body Mass Index: 21.2 BMI Classification: Normal - NPO >8 hours Home Medications and Allergies Atorvastatin Calcium 80 mg PO DAILY 11/18/15 Levetiracetam [Keppra] 750 mg PO BID 11/18/15 Metoprolol Tartrate 12.5 mg PO BID 11/18/15 Fluoride (Sodium) [Prevident 5000 Dry Mouth] 1 applic TOP DAILY PM 09/11/20 Ibuprofen [Motrin] 600 mg PO Q6H PRN 09/11/20 Apixaban [Eliquis] 2.5 mg PO DAILY 11/07/21 Aspirin EC [Ecotrin] 81 mg PO DAILY 11/07/21 Pantoprazole [Protonix] 40 mg PO DAILY 11/07/21 Sildenafil Citrate 100 mg PO PRN PRN 11/07/21 DULoxetine [Cymbalta] 60 mg PO DAILY 06/24/22 QUEtiapine [SEROquel] 25 mg PO BID 06/24/22 Allergies/Adverse Reactions: Allergies Allergy/AdvReac Type Severity Reaction Status Date / Time fluoxetine AdvReac Anxiety Verified 06/24/22 03:47 oxycodone HCl * AdvReac Hallucinati Verified 06/24/22 03:47 [From OxyContin] ons Anes History & Medical History - Anesthetic History Anesthesia Complications: reports: No previous complications - Medical History Cardiovascular: reports: Hypertension, High cholesterol, [place] Pulmonary: reports: None Gastrointestinal: reports: GERD Urinary: reports: None Neuro: reports: Seizure disorder Musculoskeletal: reports: None Endocrine/Autoimmune: reports: None Blood Disorders: reports: None Skin: reports: None Smoking Status: Never smoker Psychosocial: reports: No issues indicated History of Cancer?: No - Surgical History General: reports: Other Cardiothoracic: reports: Coronary stent Exam General: Alert, Oriented x3, Cooperative, No acute distress Dental: WNL Mouth Openin Fingerbreadth Neck Mobility: Normal Mallampati classification: II Thyromental Distance: 4-6 cm Mental/Cognitive Status: Alert/Oriented X3, Normal for patient Plan Anesthesia Type: MAC Consent for Procedure(s) Verified and Reviewed: Yes Code Status: Attempt Resuscitation ASA classification: 3-Severe systemic disease Is this case an emergency?: No
[2022-08-23] MEDS ORDERED: MIDAZOLAM 2 MG/2 ML VIAL ONE ×2 (10:20→10:36)
[2022-08-23] MEDS ORDERED: fentaNYL 100 MCG/2 ML VIAL ONE (10:21)
[2022-08-23] MEDS ORDERED: BRIMONIDINE 0.2% OPHTH DROPS 5 ML OPTH ONE (10:38)
[2022-08-23] MEDS ORDERED: EPINEPHrine 1 MG/ML AMP IR ONE (10:38)
[2022-08-23] MEDS ORDERED: PROPARACAINE 0.5% OPHTH DROPS 15 ML EACHEYE ONE (10:39)
[2022-08-23] MEDS ORDERED: TRIAMCIN/MOXIFLOX OPHTHALMIC 0.6 ML VIAL IO ONE ×2 (10:39→13:52)
[2022-08-23] MEDS ORDERED: TIMOLOL 0.5% OPHTH DROPS OPTH ONE (10:39)
[2022-08-23] MEDS ORDERED: BSS/LIDOCAINE/EPINEPHRINE 1 ML SYRINGE IO ONE (10:39)
[2022-08-23] MEDS ORDERED: VANCOMYCIN OPHTH (TOPICAL) 10 MG/ML SYRINGE TOP ONE (10:40)
--- NOTE | 2022-08-23 11:00 | OPERATIVE REPORT ---
Operative Report - Other Other Information/Narrative: Date of Surgery: 08/23/22 Preop Dx: Visually significant cataract right eye. This was the first cataract surgery. Postop Dx: Same Procedure: Phacoemulsification with posterior chamber intraocular lens implant right eye Surgeon: Dr. Nick Keenan Anesthesia: Monitored anesthesia care Complications: None Operative Indications: This is a 77-year-old M with progressive vision loss in the right eye due to 3-4+ nuclear sclerotic and 1+ posterior subcapsular cataract. Best corrected visual acuity was 20/50 with glare to 20/80 vision in the right eye. Indications for surgery were: - Overall decrease in vision - Difficulty seeing words on a computer screen - Difficulty reading - Difficulty seeing words, closed captions, or game scores on TV - Difficulty driving in low light or at night - Difficulty driving at night because of headlights from other vehicles - Difficulty with glare or bright lights in any situation - Difficulty tracking a golf ball The patient was consented at length concerning the risks and benefits of cataract surgery after which the patient expressed a desire to proceed with surgery. Operative Procedure: The patient was taken into OR#3 and placed under monitored anesthesia care. A surgical time-out was conducted confirming correct patient, correct procedure, and correct surgical site. The patient was given topical anesthesia and then prepped and draped in the usual sterile fashion. The eye was entered at the 6 and 3 oclock positions. Intracameral Shugarcaine was injected into the anterior chamber followed by a dispersive viscoelastic. A continuous-tear curvilinear capsulorhexis was performed. The nucleus was hydrodissected and phacoemulsified. The cortex was evacuated using automated infusion and aspiration. A cohesive viscoelastic was injected into the capsular bag and a 23.0 diopter intraocular lens was inserted into the bag. Infusion and aspiration were used to evacuate the viscoelastic materials from the eye. The wounds were hydrated and the eye inflated to physiologic pressure using balanced salt solution. Approximately 0.25ml of a mixture of triamcinolone and moxifloxacin was injected trans-sclerally into the vitreous in the inferotemporal quadrant using a 30 gauge cannula. An additional 0.55ml of a m ixture of triamcinolone and moxifloxacin was injected subconjunctivally in the superior quadrant for infection and inflammation prophylaxis. Wound integrity was checked with Weck-Didi sponges. The patient was taken from the operating room in good condition and given post-op instructions.
[2022-08-23 11:13] VITALS: BP 106/71
[2022-08-23] MEDS ORDERED: BSS/LIDOCAINE/EPINEPHRINE 1 ML VIAL ONE (13:52)
[2022-08-23] MEDS ORDERED: EPINEPHrine 1 MG/ML AMP ONE (13:52)
[2022-08-23] MEDS ORDERED: TIMOLOL 0.5% OPHTH DROPS ONE (13:52)
[2022-08-23] MEDS ORDERED: BRIMONIDINE 0.2% OPHTH DROPS 5 ML ONE (13:52)
[2022-08-23] MEDS ORDERED: VANCOMYCIN OPHTH (TOPICAL) 10 MG/ML SYRINGE ONE (13:52)
--- NOTE | 2022-08-23 13:59 | ANESTHESIA POST OP EVALUATION ---
Anesthesia Post Eval - Post Anesthesia Eval Vitals: Last Vital Signs Temp 36.5 C 08/23/22 11:10 Pulse 62 08/23/22 11:10 Resp 16 08/23/22 11:10 BP 106/71 08/23/22 11:10 Pulse Ox 99 08/23/22 11:10 O2 Flow Rate 0 08/23/22 09:25 CV Function Including HR & BP: Stable Pain Control: Satisfactory Nausea & Vomiting: Negative Mental Status: Baseline Respiratory Status: Airway Patent Hydration Status: Satisfactory Anesthesia Complications: None
== END 2022-08-23 09:15 | disposition home or self-care (01) ==
LOC: SDS 09:14
PROVIDERS: ATTEND Ophthalmology
DX: H25.812 Combined forms of age-related cataract, left eye (principal); F41.9 Anxiety disorder, unspecified
CPT/HCPCS: 66984; A9270; J3490; J7120

== ENCOUNTER 2022-10-18 08:17 | Day surgery (SDC) | payer OTHER ==
[2022-10-18] MEDS ORDERED: LACTATED RINGERS 1,000 ML IV ONE ×2 (08:57→10:01)
[2022-10-18] MEDS ORDERED: MIDAZOLAM 2 MG/2 ML VIAL ONE (09:01)
--- NOTE | 2022-10-18 09:19 | ANESTHESIA ---
Pre-Anesthesia VS, & Labs - Diagnosis L cataract - Procedure L phacoIOL Vital Signs: Temp Pulse Resp BP Pulse Ox O2 Flow Rate 36.7 C 73 19 127/85 H 100 10/18/22 08:42 10/18/22 08:42 10/18/22 08:42 10/18/22 08:42 10/18/22 08:42 Height: 6 ft Weight (kg): 73 kg Body Mass Index: 21.8 BMI Classification: Normal - NPO >8 hours Home Medications and Allergies Atorvastatin Calcium 80 mg PO DAILY 11/18/15 Levetiracetam [Keppra] 750 mg PO BID 11/18/15 Metoprolol Tartrate 12.5 mg PO BID 11/18/15 Apixaban [Eliquis] 2.5 mg PO DAILY 11/07/21 Aspirin EC [Ecotrin] 81 mg PO DAILY 11/07/21 Pantoprazole [Protonix] 40 mg PO DAILY 11/07/21 Sildenafil Citrate 100 mg PO PRN PRN 11/07/21 DULoxetine [Cymbalta] 60 mg PO DAILY 06/24/22 QUEtiapine [SEROquel] 25 mg PO BID 06/24/22 Allergies/Adverse Reactions: Allergies Allergy/AdvReac Type Severity Reaction Status Date / Time fluoxetine AdvReac Anxiety Verified 06/24/22 03:47 oxycodone HCl * AdvReac Hallucinati Verified 06/24/22 03:47 [From OxyContin] ons Anes History & Medical History - Anesthetic History Anesthesia Complications: reports: No previous complications Family history of Anesthesia Complications: Denies Family history of Malignant Hyperthermia: Denies - Medical History Cardiovascular: reports: Hypertension, High cholesterol, [place], Other (3 cardiac stents pplaced in 1996 [place] 10/08, no intervention, medically managed) Pulmonary: reports: None Gastrointestinal: reports: GERD, Hiatal hernia Urinary: reports: None Neuro: reports: Seizure disorder Musculoskeletal: reports: None Endocrine/Autoimmune: reports: None Blood Disorders: reports: None Skin: reports: None Smoking Status: Never smoker Psychosocial: reports: Delusions (pt has periods of time when he "psychologically leaves his body and has to be 'guided' back in and reoriented") - Surgical History General: reports: Other Cardiothoracic: reports: Coronary stent Exam General: Alert, Oriented x3, Cooperative Dental: WNL Mouth Openin Fingerbreadth Neck Mobility: Normal Mallampati classification: I Thyromental Distance: 4-6 cm Respiratory: Lungs clear Cardiovascular: Regular rate Plan Anesthesia Type: MAC Consent for Procedure(s) Verified and Reviewed: Yes Code Status: Attempt Resuscitation ASA classification: 3-Severe systemic disease Is this case an emergency?: No
[2022-10-18] MEDS ORDERED: BSS/LIDOCAINE/EPINEPHRINE 1 ML SYRINGE ONE (09:24)
[2022-10-18] MEDS ORDERED: EPINEPHrine 1 MG/ML AMP ONE (09:24)
[2022-10-18] MEDS ORDERED: BRIMONIDINE 0.2% OPHTH DROPS 5 ML ONE (09:24)
[2022-10-18] MEDS ORDERED: TRIAMCIN/MOXIFLOX OPHTHALMIC 0.6 ML VIAL IO ONE ×2 (09:24→09:37)
[2022-10-18] MEDS ORDERED: TIMOLOL 0.5% OPHTH DROPS ONE (09:24)
[2022-10-18] MEDS ORDERED: VANCOMYCIN OPHTH (TOPICAL) 10 MG/ML SYRINGE ONE (09:24)
[2022-10-18] MEDS ORDERED: BRIMONIDINE 0.2% OPHTH DROPS 5 ML OPTH ONE (09:36)
[2022-10-18] MEDS ORDERED: TIMOLOL 0.5% OPHTH DROPS OPTH ONE (09:36)
[2022-10-18] MEDS ORDERED: EPINEPHrine 1 MG/ML AMP IR ONE (09:36)
[2022-10-18] MEDS ORDERED: BSS/LIDOCAINE/EPINEPHRINE 1 ML SYRINGE IO ONE (09:37)
[2022-10-18] MEDS ORDERED: PROPARACAINE 0.5% OPHTH DROPS 15 ML EACHEYE ONE (09:37)
[2022-10-18] MEDS ORDERED: VANCOMYCIN OPHTH (TOPICAL) 10 MG/ML SYRINGE TOP ONE (09:37)
--- NOTE | 2022-10-18 10:14 | OPERATIVE REPORT ---
Operative Report - Other Other Information/Narrative: Date of Surgery: 10/18/22 Preop Dx: Visually significant cataract left eye. Cataract surgery was performed in the right eye on . Postop Dx: Same Procedure: Phacoemulsification with posterior chamber intraocular lens implant left eye Surgeon: Dr. Nick Keenan Anesthesia: Monitored anesthesia care Complications: None Operative Indications: This is a 77-year-old M with progressive vision loss in the left eye due to 3-4+ nuclear sclerotic and 2+ posterior subcapsular cataract. Best corrected visual acuity was 20/25 with glare to 20/50 vision in the left eye. Indications for surgery were: - Difficulty reading - Difficulty seeing words, closed captions, or game scores on TV - Difficulty driving at night because of headlights from other vehicles - Difficulty with glare or bright lights in any situation The patient was consented at length concerning the risks and benefits of cataract surgery after which the patient expressed a desire to proceed with s urgery. Operative Procedure: The patient was taken into OR#3 and placed under monitored anesthesia care. A surgical time-out was conducted confirming correct patient, correct procedure, and correct surgical site. The patient was given topical anesthesia and then prepped and draped in the usual sterile fashion. The eye was entered at the 6 and 3 oclock positions. Intracameral Shugarcaine was injected into the anterior chamber followed by a dispersive viscoelastic. A continuous-tear curvilinear capsulorhexis was performed. The nucleus was hydrodissected and phacoemulsified. The cortex was evacuated using automated infusion and aspiration. A cohesive viscoelastic was injected into the capsular bag and a 23.5 diopter intraocular lens was inserted into the bag. Infusion and aspiration were used to evacuate the viscoelastic materials from the eye. The wounds were hydrated and the eye inflated to physiologic pressure using balanced salt solution. Approximately 0.25ml of a mixture of triamcinolone and moxifloxacin was injected trans-sclerally into the vitreous in the inferotemporal quadrant using a 30 gauge cannula. An additional 0.25ml of a mixture of triamcinolone and moxifloxacin was injected subconjunctivally in the superior quadrant for infection and inflammation prophylaxis. Wound integrity was checked with Weck-Didi sponges. The patient was taken from the operating room in good condition and given post-op instructions.
[2022-10-18 10:16] VITALS: BP 114/74
--- NOTE | 2022-10-18 10:32 | ANESTHESIA POST OP EVALUATION ---
Anesthesia Post Eval - Post Anesthesia Eval Vitals: Last Vital Signs Temp 36.7 C 10/18/22 10:01 Pulse 63 10/18/22 10:15 Resp 19 10/18/22 10:15 BP 114/74 10/18/22 10:15 Pulse Ox 100 10/18/22 10:15 O2 Flow Rate CV Function Including HR & BP: Stable Pain Control: Satisfactory Nausea & Vomiting: Negative Mental Status: Baseline Respiratory Status: Airway Patent Hydration Status: Satisfactory Anesthesia Complications: None
== END 2022-10-18 08:18 | disposition home or self-care (01) ==
LOC: SDS 08:17
PROVIDERS: ATTEND Ophthalmology
DX: H25.812 Combined forms of age-related cataract, left eye (principal); Z98.41 Cataract extraction status, right eye; N40.0 Benign prostatic hyperplasia without lower urinary tract symptoms; I25.2 Old myocardial infarction
CPT/HCPCS: 66984; A9270; J3490; J7120

== ENCOUNTER 2022-11-05 01:01 | Outpatient (CLI) | payer OTHER | END 2022-11-05 01:02 | disposition short-term general hospital (02) | LOC: EMS 01:01 | DX: I21.09 ST elevation (STEMI) myocardial infarction involving other coronary artery of anterior wall (principal) | CPT/HCPCS: A0425; A0427 ==

== ENCOUNTER 2023-10-08 12:23 | Outpatient (CLI) | payer OTHER | END 2023-10-08 12:24 | disposition home or self-care (01) | LOC: DI 12:23 | DX: I35.0 Nonrheumatic aortic (valve) stenosis (principal); I51.7 Cardiomegaly; I35.1 Nonrheumatic aortic (valve) insufficiency; I77.810 Thoracic aortic ectasia | CPT/HCPCS: 93307 ==

== ENCOUNTER 2023-10-31 08:50 | Observation (INO) | payer OTHER ==
--- NOTE | 2023-10-31 09:23 | ED Physician Documentation ---
PD HPI DYSPNEA - Stated complaint Stated Complaint: ANEMIC/TRANSFUSION - Chief complaint Chief Complaint: Abd Pain - History obtained from History obtained from: Patient - History of Present Illness Timing - onset: How many weeks ago (2-3 weeks of dyspnea on exertion.) PD PAST MEDICAL HISTORY - Past Medical History Cardiovascular: Hypertension, High cholesterol, IL, Other Respiratory: None Neuro: Seizure disorder Endocrine/Autoimmune: None GI: GERD, Hiatal hernia : None HEENT: None Psych: Depression, Anxiety, Panic attacks, Post traumatic stress disorder Musculoskeletal: None Derm: None - Past Surgical History Past Surgical History: Yes General: Other Cardiovascular: Coronary stent - Present Medications Home Medications: Ambulatory Orders Medication Instructions Recorded Confirmed Atorvastatin Calcium 80 mg PO DAILY 11/18/15 10/31/23 Levetiracetam [Keppra] 750 mg PO BID 11/18/15 10/31/23 Pantoprazole [Protonix] 20 mg PO DAILY 11/07/21 10/31/23 DULoxetine [Cymbalta] 60 mg PO DAILY 06/24/22 10/31/23 QUEtiapine [SEROquel] 50 mg PO QPM 06/24/22 10/31/23 Baclofen 10 mg PO TID PRN 10/31/23 10/31/23 Clopidogrel [Plavix] 75 mg PO DAILY 10/31/23 10/31/23 Lisinopril [Zestril] 5 mg PO DAILY 10/31/23 10/31/23 Metoprolol Succinate [Toprol Xl] 25 mg PO DAILY 10/31/23 10/31/23 QUEtiapine [SEROquel] 25 mg PO DAILY 10/31/23 10/31/23 Sertraline [Zoloft] 100 mg PO DAILY 10/31/23 10/31/23 Tamsulosin [Flomax] 0.4 mg PO DAILY 10/31/23 10/31/23 busPIRone [Buspar] 5 mg PO BID 10/31/23 10/31/23 - Allergies Allergies/Adverse Reactions: Allergies Allergy/AdvReac Type Severity Reaction Status Date / Time fluoxetine AdvReac Unknown Anxiety Verified 10/31/23 09:59 oxycodone HCl * AdvReac Unknown Hallucinati Verified 10/31/23 09:59 [From OxyContin] ons - Social History Does the pt smoke?: No Smoking Status: Never smoker Does the pt drink ETOH?: No Does the pt have substance abuse?: Yes - Immunizations Immunizations are current?: Yes - POLST Patient has POLST: No Results - Vitals Vitals: Vital Signs - 24 hr 10/31/23 10/31/23 10/31/23 09:07 09:43 10:44 Temperature 37.1 C Heart Rate 68 63 61 Respiratory 16 18 16 Rate Blood Pressure 93/53 L 98/67 92/55 L O2 Saturation 100 100 100 Oxygen O2 Source Room air - Labs Labs: Laboratory Tests 10/31/23 10/31/23 10/31/23 09:56 09:56 09:56 WBC 7.2 RBC 3.17 L Hgb 6.7 L* Hct 23.7 L MCV 74.8 L MCH 21.1 L MCHC 28.3 L RDW 16.6 H Plt Count 234 MPV 10.7 Neut # (Auto) 5.4 Lymph # (Auto) 0.6 L [place] # (Auto) 0.7 Eos # (Auto) 0.4 Baso # (Auto) 0.0 Absolute Nucleated RBC 0.00 Nucleated RBC % 0.0 Sodium 136 Potassium 4.3 Chloride 102 Carbon Dioxide 29 Anion Gap 5.0 L BUN 26 H Creatinine 1.1 Estimated GFR (MDRD) 65 L Glucose 101 Calcium 9.1 Magnesium 2.0 Iron < 10 L TIBC 410 % Saturation TNP Transferrin 293 Total Bilirubin 0.4 AST 19 ALT 9 L Alkaline Phosphatase 74 Total Protein 7.0 Albumin 4.0 Globulin 3.0 Albumin/Globulin Ratio 1.3 Lipase 24 Vitamin B12 288 Folate 16.9 Blood Type O POSITIVE Blood Type Recheck Antibody Screen NEGATIVE Crossmatch IS Only See Detail 10/31/23 10:03 WBC RBC Hgb Hct MCV MCH MCHC RDW Plt Count MPV Neut # (Auto) Lymph # (Auto) [place] # (Auto) Eos # (Auto) Baso # (Auto) Absolute Nucleated RBC Nucleated RBC % Sodium Potassium Chloride Carbon Dioxide Anion Gap BUN Creatinine Estimated GFR (MDRD) Glucose Calcium Magnesium Iron TIBC % Saturation Transferrin Total Bilirubin AST ALT Alkaline Phosphatase Total Protein Albumin Globulin Albumin/Globulin Ratio Lipase Vitamin B12 Folate Blood Type Blood Type Recheck O POSITIVE Antibody Screen Crossmatch IS Only Departure - Departure Disposition: ED Place in Observation Clinical Impression: Anemia, Dyspnea on exertion Condition: Stable Record reviewed to determine appropriate education?: Yes Forms: PCP List
[2023-10-31 10:07] LABS: BASOPHILS % (AUTO) 0.6 %; EOSINOPHILS # (AUTO) 0.4 10^3/uL (0.0-0.7); EOSINOPHILS % (AUTO) 5.7 %; HCT - HEMATOCRIT 23.7 % (42.0-52.0); LYMPHOCYTES # (AUTO) 0.6 10^3/uL (1.5-3.5); LYMPHOCYTES % (AUTO) 8.9 %; MEAN CORPUSCULAR HEMOGLOBIN 21.1 pg (27.0-31.0); MEAN CORPUSCULAR HGB CONC 28.3 g/dL (32.0-36.0); MEAN CORPUSCULAR VOLUME 74.8 fL (80.0-94.0); MEAN PLATELET VOLUME 10.7 fL (7.4-11.4); MONOCYTES # (AUTO) 0.7 10^3/uL (0.0-1.0); MONOCYTES % (AUTO) 9.6 %; NEUTROPHILS # (AUTO) 5.4 10^3/uL (1.5-6.6); NEUTROPHILS % (AUTO) 74.8 %; PLT - PLATELET COUNT 234 10^3/uL (130-450); RED BLOOD COUNT 3.17 10^6/uL (4.70-6.10); RED CELL DISTRIBUTION WIDTH 16.6 % (12.0-15.0); WHITE BLOOD COUNT 7.2 x10^3/uL (4.8-10.8)
[2023-10-31 10:09] LABS: HGB - HEMOGLOBIN 6.7 g/dL (14.0-18.0)
[2023-10-31 10:21] LABS: ALBUMIN/GLOBULIN RATIO 1.3 (1.0-2.2); ALKALINE PHOSPHATASE 74 IU/L (42-121); ALT ALANINE AMINOTRANSFERASE 9 IU/L (10-60); AST ASPARTATE AMINOTRANSFERASE 19 IU/L (10-42); BILIRUBIN,TOTAL 0.4 mg/dL (0.2-1.0); BUN - BLOOD UREA NITROGEN 26 mg/dL (6-20); CALCIUM 9.1 mg/dL (8.5-10.3); CARBON DIOXIDE - CO2 29 mmol/L (21-32); CHLORIDE 102 mmol/L (101-111); CREATININE 1.1 mg/dL (0.6-1.3); GFR - MDRD 65 (>89); GLUCOSE 101 mg/dL (74-104); IRON < 10 ug/dL (50-212); LIPASE 24 U/L (11-82); POTASSIUM 4.3 mmol/L (3.5-4.5); SODIUM 136 mmol/L (135-145); TOTAL IRON BINDING CAPACITY 410 ug/dL (250-450); TRANSFERRIN 293 mg/dL (203-362)
[2023-10-31 13:19] LABS: H. PYLORIS ANTIGEN STL NEGATIVE (Negative)
[2023-10-31] MEDS ORDERED: ONDANSETRON ODT 4 MG TABLET TL PRN (13:33)
[2023-10-31] MEDS ORDERED: ONDANSETRON 4 MG/2 ML VIAL IVP PRN (13:33)
[2023-10-31] MEDS ORDERED: ACETAMINOPHEN 325 MG TABLET PO PRN (13:33)
[2023-10-31] MEDS: SODIUM CHLORIDE FLUSH 0.9% 10 ML SYRINGE IVP PRN (14:53)
[2023-10-31] MEDS: PANTOPRAZOLE 40 MG VIAL IVP SCH (14:53)
--- NOTE | 2023-10-31 15:49 | HISTORY & PHYSICAL EXAMINATION ---
Chief Complaint - Chief Complaint Chief Complaint: BLUM History of Present Illness - Admitted From Admitted From:: ER - History Obtained From Records Reviewed: From ER History obtained from: Patient, ER records Exam Limitations: None - History of Present Illness HPI Comment/Other: 78 YOM with a Hx of IL, HTN, HDL, anxiety and depression presented to the ER for BLUM which has been going on for two weeks now, feels short of breath just walking to the fridge and back which is not normal for him. Takes him about 5-10 min of rest after he walks to feel back to normal. Denies any associated chest pain, he does states he gets a "deep feeling" in his chest but denies discomfort. Pt was seen at PCP's office yesterday and was found to have a HgB of 6.4, told to go to the ER which requested admission after a repeat HgB of 6.7 and Iron of < 10. Pt denies any chest, shoulder or jaw pain associated with his BLUM. No syncope, light headedness, dizziness, fever, chills, sweats, N/V/D, abd pain. Last BM yesterday, no dark stools or hematochezia. He reports Hx of nicotine vaping, goes through one vape pen every couple of weeks. No alcohol. History - Past Medical History Cardiovascular: reports: Hypertension, High cholesterol, IL, Other Respiratory: reports: None Neuro: reports: Seizure disorder Endocrine/Autoimmune: reports: None GI: reports: GERD, Hiatal hernia : reports: None HEENT: reports: None Psych: reports: Depression, Anxiety, Panic attacks, Post traumatic stress disord er Musculoskeletal: reports: None Derm: reports: None MRSA Hx?: No - Past Surgical History General: reports: Other Cardiovascular: reports: Coronary stent - Family & Social History Family History: Mother: , Father: Family History Comment/Other: Denies any medical Hx with his father, mother or siblings. Living arrangement: At home Living Situation: With spouse/s.o. - Substance History Use: Uses substance without health or social issues: Tobacco Abuse: Recurrent use of substance despite neg consequences: NONE Dependence: Experiences withdrawal or developed tolerances: NONE Tobacco Details: E-Cigarettes - POLST Patient has POLST: No POLST Status: Full Code Meds/Allgy - Home Medications Home Medications: Ambulatory Orders Medication Instructions Recorded Confirmed Atorvastatin Calcium 80 mg PO DAILY 11/18/15 10/31/23 Levetiracetam [Keppra] 750 mg PO BID 11/18/15 10/31/23 Pantoprazole [Protonix] 20 mg PO BID 11/07/21 10/31/23 DULoxetine [Cymbalta] 60 mg PO BID 06/24/22 10/31/23 QUEtiapine [SEROquel] 100 mg PO QPM 06/24/22 10/31/23 Apixaban [Eliquis] 5 mg PO BID 10/31/23 10/31/23 Baclofen 10 mg PO TID PRN 10/31/23 10/31/23 Clopidogrel [Plavix] 75 mg PO DAILY 10/31/23 10/31/23 Lisinopril [Zestril] 5 mg PO DAILY 10/31/23 10/31/23 Metoprolol Succinate [Toprol Xl] 25 mg PO DAILY 10/31/23 10/31/23 QUEtiapine [SEROquel] 12.5 mg PO DAILY 10/31/23 10/31/23 Sertraline [Zoloft] 200 mg PO DAILY 10/31/23 10/31/23 Tamsulosin [Flomax] 0.4 mg PO DAILY 10/31/23 10/31/23 busPIRone [Buspar] 5 mg PO BID 10/31/23 10/31/23 - Allergies Allergies/Adverse Reactions: Allergies Allergy/AdvReac Type Severity Reaction Status Date / Time fluoxetine AdvReac Unknown Anxiety Verified 10/31/23 09:59 oxycodone HCl * AdvReac Unknown Hallucinati Verified 10/31/23 09:59 [From OxyContin] ons Review of Systems - Constitutional Constitutional: denies: Fever, Chills - Cardiovascular Cariovascular: reports: Exertional dyspnea. denies: Chest pain, Lightheadedness, Syncope - Respiratory Respiratory: reports: SOB with exertion. denies: Cough - Gastrointestinal Gastrointestinal: reports: Constipation. denies: Abdominal pain, Diarrhea, Nausea, Vomiting - Genitourinary Genitourinary: denies: Dysuria - Musculoskeletal Musculoskeletal: denies: Back pain, Muscle aches - Integumentary Integumentary: denies: Rash - Neurological Neurological: denies: Dizziness, Numbness - Psychiatric Psychiatric: reports: Depression, Anxiety - Endocrine Endocrine: denies: Polyuria - Hematologic/Lymphatic Hematologic/Lymphatic: reports: Anemia Exam - Vital Signs Vital Signs: Vital Signs x48h Temp Pulse Pulse Resp BP BP Pulse Ox 10/31/23 15:04 36.9 C 60 16 104/62 98 10/31/23 14:32 36.9 C 61 16 106/60 98 10/31/23 13:39 63 19 89/70 L 100 10/31/23 12:47 66 23 99/52 L 100 10/31/23 12:25 36.7 C 61 21 87/61 L 100 10/31/23 12:05 37.2 C 59 L 23 97/61 99 10/31/23 10:44 61 16 92/55 L 100 10/31/23 09:43 63 18 98/67 100 10/31/23 09:07 37.1 C 68 16 93/53 L 100 - Physical Exam General Appearance: positive: No acute distress, Alert Eyes Bilateral: positive: PERRL, EOMI ENT: positive: ENT inspection nml Respiratory: positive: Chest non-tender, No respiratory distress, Breath sounds nml Cardiovascular: positive: Regular rate & rhythm, Systolic murmur Peripheral Pulses: positive: 2+ Abdomen: positive: Non-tender Skin: positive: Color nml, Warm, Dry Neurologic/Psychiatric: positive: Oriented x3 Conclusion/Plan - Problem List (1) Anemia Conclusion/Plan: 2 weeks of BLUM, blood work at PCP's office showed HgB of 6.4. Labs here showed HgB of 6.7, HCT 23.7, MCV 74.8, RDW 16.6, MCHC 28.3. Pt's stool positive for occult blood and (-) for H.Pylori. 1 unit of RBC's has been administered in ICU w/o complications. CT of abd/pelvis showed no significant findings. Vitals stable. Pt feeling well in room. No light headedness, dizziness, nausea, CP or SOB. States he has an appetite. Plan: -Admit and monitor over night, discharge if stable in the morning. -Monitor CBC series. (2) Dyspnea on exertion Conclusion/Plan: 2 weeks of BLUM at home, unable to walk short distances which is not normal for the patient. vitals here at 15:32: 36.7C, HR 72, BP 101/60, RR 18, 98% RA. As above 1 unit of RBC's administered for iron deficient anemia. Pt able to walk to bathroom w/o walker or assistance, no CP or SOB while doing so. Will monitor overnight. - Lab Results Fish Bones: 10/31/23 17:40 10/31/23 09:56
[2023-10-31] MEDS ORDERED: iohexoL-300 100 ML VIAL ONE (15:52)
[2023-10-31] MEDS: SODIUM CHLORIDE FLUSH 0.9% 10 ML SYRINGE IVP SCH (15:55)
[2023-10-31] MEDS: iohexoL-300 100 ML VIAL IVP ONE (16:29)
--- NOTE | 2023-10-31 16:32 | PHARMACY PROGRESS NOTE ---
- Best Possible Medication History Admit Date and Time: 10/31/23 1333 Processed by: Pharmacy Medications reviewed in ED?: Yes Medication History completed: Yes Patient Interview: Completed Secondary Source(s): Physician records, Insurance records As the person ultimately responsible for medication therapy, providers are able to order a medication from an existing home medication list in [facility] via the "Reconcile Routine" prior to Confirmation of that medication by computer support specialist. Such practice is discouraged except when the physician, in their clinical judgment, deems that a medical need exists for a medication without regard to previous use.
--- NOTE | 2023-10-31 17:10 | CT Report ---
PROCEDURE: Abdomen/Pelvis W INDICATIONS: iron def anemia CONTRAST: Omni 300 TECHNIQUE: After the administration of intravenous contrast, a CT scan of the abdomen and pelvis was performed. Images were recorded and evaluated at appropriate window settings. Reformats: coronal and sagittal. F or radiation dose reduction, the following was used: automated exposure control, adjustment of mA and /or kV according to patient size. COMPARISON: CT chest abdomen pelvis were 2120 FINDINGS: Image quality: Diagnostic. Lower chest: Unremarkable. Liver: No solid mass. Gallbladder and biliary tree: No radiopaque stones or wall thickening. No biliary dilation. Spleen: No splenomegaly. Pancreas: No pancreatic ductal dilation. Adrenals: No adrenal nodule. Kidneys and ureters: No hydronephrosis. No renal cystic lesion which requires follow up. No solid mas s. Renal simple appearing cysts. Stomach, bowel and peritoneum: No bowel distension. No pathologic free fluid. Stable ovoid rim calcif ied lesion in the anterior-inferior left peritoneal cavity. Scattered diverticulosis without evidence of acute diverticulitis. Normal appendix. Lymph nodes: No central or retroperitoneal adenopathy. Vessels: No infrarenal aortic aneurysm. Atherosclerotic vascular calcifications. PELVIS Reproductive organs: Unremarkable. Bladder: No abnormal wall thickening, accounting for underdistention. Pelvic lymph nodes: No pelvic adenopathy by size criteria. Bones: No aggressive osseous abnormality. Degenerative changes of the spine. Decreased osseous minera lization. Other: Small bilateral fat-containing inguinal hernias. IMPRESSION: 1.No significant abnormality is seen within the abdomen or pelvis. 2.Stable chronic findings as described above. Reviewed by: García Ortiz MD on 10/31/2023 5:09 PM PST Approved by: García Ortiz MD on 10/31/2023 5:09 PM PST Station ID: [id number]
[2023-10-31 17:52] LABS: HCT - HEMATOCRIT 26.9 % (42.0-52.0); HGB - HEMOGLOBIN 7.8 g/dL (14.0-18.0); MEAN CORPUSCULAR HEMOGLOBIN 22.4 pg (27.0-31.0); MEAN CORPUSCULAR VOLUME 77.3 fL (80.0-94.0); MEAN PLATELET VOLUME 10.4 fL (7.4-11.4); RED BLOOD COUNT 3.48 10^6/uL (4.70-6.10); RED CELL DISTRIBUTION WIDTH 17.3 % (12.0-15.0); WHITE BLOOD COUNT 6.7 x10^3/uL (4.8-10.8)
[2023-10-31] MEDS ORDERED: BACLOFEN 10 MG TABLET PO PRN (20:09)
[2023-10-31] MEDS: levETIRAcetam 250 MG TABLET PO SCH (21:55)
[2023-10-31] MEDS: busPIRone 5 MG TABLET PO SCH (22:08)
[2023-10-31] MEDS: QUEtiapine 25 MG TABLET PO SCH (22:09)
[2023-10-31] MEDS: DULoxetine 30 MG CAPSULE PO SCH (22:13)
[2023-10-31] MEDS: PANTOPRAZOLE 40 MG TABLET PO SCH (22:55)
[2023-11-01 05:51] LABS: BASOPHILS % (AUTO) 0.4 %; EOSINOPHILS # (AUTO) 0.5 10^3/uL (0.0-0.7); EOSINOPHILS % (AUTO) 7.1 %; HCT - HEMATOCRIT 23.5 % (42.0-52.0); LYMPHOCYTES # (AUTO) 0.9 10^3/uL (1.5-3.5); MEAN CORPUSCULAR HEMOGLOBIN 22.7 pg (27.0-31.0); MEAN CORPUSCULAR HGB CONC 29.8 g/dL (32.0-36.0); MEAN CORPUSCULAR VOLUME 76.3 fL (80.0-94.0); MONOCYTES # (AUTO) 0.9 10^3/uL (0.0-1.0); MONOCYTES % (AUTO) 11.9 %; NEUTROPHILS # (AUTO) 5.2 10^3/uL (1.5-6.6); NEUTROPHILS % (AUTO) 68.2 %; PLT - PLATELET COUNT 197 10^3/uL (130-450); RED BLOOD COUNT 3.08 10^6/uL (4.70-6.10); RED CELL DISTRIBUTION WIDTH 17.4 % (12.0-15.0); WHITE BLOOD COUNT 7.6 x10^3/uL (4.8-10.8)
--- NOTE | 2023-11-01 07:17 | PROVIDER PROGRESS NOTE ---
Subjective - Prog Note Date Prog Note Date: 11/01/23 Prog Note Time: 10:00 - Subjective Pt reports feeling: No change Subjective: Pt doing well. Eating breakfast comfortably. Per nurse able to walk to the bathroom w/o assistance this morning, denies any pain, SOB, light headedness or dizziness. Objective - Vital Signs/Intake & Output Vital Signs: Vital Signs x48h Temp Pulse Resp BP BP Pulse Ox 11/01/23 05:30 37.1 C 62 18 104/62 97 10/31/23 23:41 37.1 C 66 18 115/67 98 Intake & Output: Intake & Output 10/29/23 10/30/23 10/31/23 11/01/23 23:59 23:59 23:59 23:59 Intake Total 790 Output Total 400 Balance 390 - Objective General Appearance: positive: No acute distress, Alert Eyes Bilateral: positive: EOMI ENT: positive: ENT inspection nml Neck: positive: Nml inspection, No JVD Respiratory: positive: Chest non-tender, No respiratory distress, Breath sounds nml Cardiovascular: positive: Regular rate & rhythm, Systolic murmur Peripheral Pulses: 2+ Radial (R) Skin: positive: Color nml, Warm, Dry. negative: Cyanosis Extremities: positive: Non-tender Neurologic/Psychiatric: positive: Oriented x3, Mood/affect nml - Lab Results Fish Bones: 11/01/23 05:22 10/31/23 09:56 Other Labs: Lab Results x24hrs 11/01/23 10/31/23 10/31/23 Range/Units 05:22 17:40 17:40 WBC 7.6 6.7 (4.8-10.8) x10^3/uL RBC 3.08 L 3.48 L (4.70-6.10) 10^6/uL Hgb 7.0 L* 7.8 L (14.0-18.0) g/dL Hct 23.5 L 26.9 L (42.0-52.0) % MCV 76.3 L 77.3 L (80.0-94.0) fL MCH 22.7 L 22.4 L (27.0-31.0) pg MCHC 29.8 L 29.0 L (32.0-36.0) g/dL RDW 17.4 H 17.3 H (12.0-15.0) % Plt Count 197 222 (130-450) 10^3/uL MPV 11.0 10.4 (7.4-11.4) fL Neut # (Auto) 5.2 (1.5-6.6) 10^3/uL Lymph # (Auto) 0.9 L (1.5-3.5) 10^3/uL [place] # (Auto) 0.9 (0.0-1.0) 10^3/uL Eos # (Auto) 0.5 (0.0-0.7) 10^3/uL Baso # (Auto) 0.0 (0.0-0.1) 10^3/uL Absolute Nucleated RBC 0.00 x10^3/uL Nucleated RBC % 0.0 /100WBC Sodium (135-145) mmol/L Potassium (3.5-4.5) mmol/L Chloride (101-111) mmol/L Carbon Dioxide (21-32) mmol/L Anion Gap (6-13) BUN (6-20) mg/dL Creatinine (0.6-1.3) mg/dL Estimated GFR (MDRD) (>89) Glucose (74-104) mg/dL Calcium (8.5-10.3) mg/dL Magnesium (1.7-2.3) mg/dL Iron (50-212) ug/dL TIBC (250-450) ug/dL % Saturation Transferrin (203-362) mg/dL Total Bilirubin (0.2-1.0) mg/dL AST (10-42) IU/L ALT (10-60) IU/L Alkaline Phosphatase (42-121) IU/L Total Protein (6.4-8.9) g/dL Albumin (3.2-5.5) g/dL Globulin (2.1-4.2) g/dL Albumin/Globulin Ratio (1.0-2.2) Lipase (11-82) U/L Carcinoembryonic Ag 2.9 ng/mL Vitamin B12 (180-914) pg/mL Folate (5.90 - >24.8) ng/mL Stool H. pylori Ag (Negative) Blood Type Blood Type Recheck Antibody Screen Crossmatch IS Only 10/31/23 10/31/23 10/31/23 Range/Units 12:39 10:03 09:56 WBC (4.8-10.8) x10^3/uL RBC (4.70-6.10) 10^6/uL Hgb (14.0-18.0) g/dL Hct (42.0-52.0) % MCV (80.0-94.0) fL MCH (27.0-31.0) pg MCHC (32.0-36.0) g/dL RDW (12.0-15.0) % Plt Count (130-450) 10^3/uL MPV (7.4-11.4) fL Neut # (Auto) (1.5-6.6) 10^3/uL Lymph # (Auto) (1.5-3.5) 10^3/uL [place] # (Auto) (0.0-1.0) 10^3/uL Eos # (Auto) (0.0-0.7) 10^3/uL Baso # (Auto) (0.0-0.1) 10^3/uL Absolute Nucleated RBC x10^3/uL Nucleated RBC % /100WBC Sodium 136 (135-145) mmol/L Potassium 4.3 (3.5-4.5) mmol/L Chloride 102 (101-111) mmol/L Carbon Dioxide 29 (21-32) mmol/L Anion Gap 5.0 L (6-13) BUN 26 H (6-20) mg/dL Creatinine 1.1 (0.6-1.3) mg/dL Estimated GFR (MDRD) 65 L (>89) Glucose 101 (74-104) mg/dL Calcium 9.1 (8.5-10.3) mg/dL Magnesium 2.0 (1.7-2.3) mg/dL Iron < 10 L (50-212) ug/dL TIBC 410 (250-450) ug/dL % Saturation TNP Transferrin 293 (203-362) mg/dL Total Bilirubin 0.4 (0.2-1.0) mg/dL AST 19 (10-42) IU/L ALT 9 L (10-60) IU/L Alkaline Phosphatase 74 (42-121) IU/L Total Protein 7.0 (6.4-8.9) g/dL Albumin 4.0 (3.2-5.5) g/dL Globulin 3.0 (2.1-4.2) g/dL Albumin/Globulin Ratio 1.3 (1.0-2.2) Lipase 24 (11-82) U/L Carcinoembryonic Ag ng/mL Vitamin B12 288 (180-914) pg/mL Folate 16.9 (5.90 - >24.8) ng/mL Stool H. pylori Ag NEGATIVE (Negative) Blood Type Blood Type Recheck O POSITIVE Antibody Screen Crossmatch IS Only 10/31/23 10/31/23 Range/Units 09:56 09:56 WBC 7.2 (4.8-10.8) x10^3/uL RBC 3.17 L (4.70-6.10) 10^6/uL Hgb 6.7 L* (14.0-18.0) g/dL Hct 23.7 L (42.0-52.0) % MCV 74.8 L (80.0-94.0) fL MCH 21.1 L (27.0-31.0) pg MCHC 28.3 L (32.0-36.0) g/dL RDW 16.6 H (12.0-15.0) % Plt Count 234 (130-450) 10^3/uL MPV 10.7 (7.4-11.4) fL Neut # (Auto) 5.4 (1.5-6.6) 10^3/uL Lymph # (Auto) 0.6 L (1.5-3.5) 10^3/uL [place] # (Auto) 0.7 (0.0-1.0) 10^3/uL Eos # (Auto) 0.4 (0.0-0.7) 10^3/uL Baso # (Auto) 0.0 (0.0-0.1) 10^3/uL Absolute Nucleated RBC 0.00 x10^3/uL Nucleated RBC % 0.0 /100WBC Sodium (135-145) mmol/L Potassium (3.5-4.5) mmol/L Chloride (101-111) mmol/L Carbon Dioxide (21-32) mmol/L Anion Gap (6-13) BUN (6-20) mg/dL Creatinine (0.6-1.3) mg/dL Estimated GFR (MDRD) (>89) Glucose (74-104) mg/dL Calcium (8.5-10.3) mg/dL Magnesium (1.7-2.3) mg/dL Iron (50-212) ug/dL TIBC (250-450) ug/dL % Saturation Transferrin (203-362) mg/dL Total Bilirubin (0.2-1.0) mg/dL AST (10-42) IU/L ALT (10-60) IU/L Alkaline Phosphatase (42-121) IU/L Total Protein (6.4-8.9) g/dL Albumin (3.2-5.5) g/dL Globulin (2.1-4.2) g/dL Albumin/Globulin Ratio (1.0-2.2) Lipase (11-82) U/L Carcinoembryonic Ag ng/mL Vitamin B12 (180-914) pg/mL Folate (5.90 - >24.8) ng/mL Stool H. pylori Ag (Negative) Blood Type O POSITIVE Blood Type Recheck Antibody Screen NEGATIVE Crossmatch IS Only See Detail Assessment/Plan - Problem List (1) Anemia Impression: Anemia 2 weeks of BLUM, blood work at PCP's office showed HgB of 6.4. Labs here 10-31-23 showed HgB of 6.7, HCT 23.7, MCV 74.8, RDW 16.6, MCHC 28.3. Pt's stool positive for occult blood and (-) for H.Pylori. 1 unit of RBC's has been administered in ICU w/o complications. CT of abd/pelvis showed no significant findings. Vitals stable. Pt feeling well in room. No light headedness, dizziness, nausea, CP or SOB. Has been maintaining appetite. 24 HgB this morning 7.0. Last night was 7.8 after 1 transfusion. Per nurse pt able to walk to bathroom this am without walker or assistance. Plan: -Transfuse another unit of RBC's. -Cubing Machine Tender consult, advised to stop ASA and plavix during stay. Cont eliquis after discharge. -Consult with Dr. Rachael Bourgeois. NPO, clear liquid, bowel prep, Colonoscopy and endoscopy tomorrow 0800. -Serial H&H ordered. (2) Dyspnea on exertion Impression: 2 weeks of BLUM at home, unable to walk short distances which is not normal for the patient. vitals here 10-31-25 at 15:32: 36.7C, HR 72, BP 101/60, RR 18, 98% RA. As above 1 unit of RBC's administered for iron deficient anemia. Pt able to walk to bathroom w/o walker or assistance, no CP or SOB while doing so. Will monitor overnight. 11-01-23: No CP or SOB when ambulating to the bathroom this morning. As above another unit of RBC's needed today.
[2023-11-01] MEDS: ATORVASTATIN 40 MG TABLET PO SCH (08:21)
[2023-11-01] MEDS: QUEtiapine 25 MG TABLET PO SCH (08:22)
[2023-11-01] MEDS: PANTOPRAZOLE 40 MG TABLET PO SCH (08:22)
[2023-11-01] MEDS: METOPROLOL SUCCINATE 25 MG TABLET PO SCH (08:22)
[2023-11-01] MEDS: TAMSULOSIN 0.4 MG CAPSULE PO SCH (08:22)
[2023-11-01] MEDS: SERTRALINE 50 MG TABLET PO SCH (08:23)
[2023-11-01] MEDS: lisinopriL 5 MG TABLET PO SCH (08:23)
[2023-11-01] MEDS: DOCUSATE SODIUM 250 MG CAPSULE PO SCH (10:42)
[2023-11-01] MEDS: CYANOCOBALAMIN 1,000 MCG/ML VIAL IM SCH (13:55)
[2023-11-01] MEDS: FERRIC GLUCONATE 125 MG in SODIUM CHLORIDE 0.9% 100ML 100 ML IV SCH (13:55)
[2023-11-01] MEDS ORDERED: TEMAZEPAM 15 MG CAPSULE PO PRN (14:06)
--- NOTE | 2023-11-01 14:24 | CONSULTATION NOTE ---
Referring Provider Name of Referring Provider:: Caitlyn Bourgeois MD Consult Date: 11/01/23 ([facility]) Chief Complaint - Chief Complaint Chief Complaint: dyspnea on exertion History of Present Illness - History Obtained From Records Reviewed: yes History obtained from: patient/Dr. Bourgeois Exam Limitations: none - History of Present Illness HPI Comment/Other: 78yoM admitted with BLUM upon ambulating within his home, found to have HGB of 6.7. Denies feeling fatigued, denies abdominal pain, nausea, or emesis/h ematemesis. Denies diarrhea, melena, hematochezia. Typically has BM every 1-2d, however endorses constipation and it being "a few days" since last BM currently. Tolerating normal diet at home and in hospital. Since admission Transfused 1U PRBC to hgb 7.8, however dropped again to 7.0 this morning and now receiving 2nd unit PRBC. As no gross UGIB (hematemesis), no NGT has been placed. Patient s/p coronary stenting followed by PEs in the acute post- procedural period. Had remained on Eliquis, ASA, Plavix until admission; however Dr. Bourgeois spoke with his Storage And Backup Administrator who endorses that he needs to only be on Eliquis for Afib, though this can be held during admission; ASA/Plavix may be permanently discontinued. History - Past Medical History Cardiovascular: reports: Hypertension, High cholesterol, [place], Atrial fibrill ation, Other Respiratory: reports: None Neuro: reports: Seizure disorder Endocrine/Autoimmune: reports: None GI: reports: GERD, Hiatal hernia : reports: None HEENT: reports: None Psych: reports: Depression, Anxiety, Panic attacks, Post traumatic stress disorder Musculoskeletal: reports: None Derm: reports: None MRSA Hx?: No Other Past Medical History: Diverticulosis - Past Surgical History General: reports: Other (Laparoscopic incisions consistent with TEP inguinal hernia repair, however patient does not recall surgery.) Cardiovascular: reports: Coronary stent - Family & Social History Family History: Mother: , Father: Family History Comment/Other: Denies any medical Hx with his father, mother or siblings. Living arrangement: At home Living Situation: With spouse/s.o. - Substance History Use: Uses substance without health or social issues: Tobacco Abuse: Recurrent use of substance despite neg consequences: NONE Dependence: Experiences withdrawal or developed tolerances: NONE Tobacco Details: E-Cigarettes - POLST Patient has POLST: No POLST Status: Full Code Meds/Allgy - Home Medications Home Medications: Ambulatory Orders Medication Instructions Recorded Confirmed Atorvastatin Calcium 80 mg PO DAILY 11/18/15 10/31/23 Levetiracetam [Keppra] 750 mg PO BID 11/18/15 10/31/23 Pantoprazole [Protonix] 20 mg PO BID 11/07/21 10/31/23 DULoxetine [Cymbalta] 60 mg PO BID 06/24/22 10/31/23 QUEtiapine [SEROquel] 100 mg PO QPM 06/24/22 10/31/23 Apixaban [Eliquis] 5 mg PO BID 10/31/23 10/31/23 Baclofen 10 mg PO TID PRN 10/31/23 10/31/23 Clopidogrel [Plavix] 75 mg PO DAILY 10/31/23 10/31/23 Lisinopril [Zestril] 5 mg PO DAILY 10/31/23 10/31/23 Metoprolol Succinate [Toprol Xl] 25 mg PO DAILY 10/31/23 10/31/23 QUEtiapine [SEROquel] 12.5 mg PO DAILY 10/31/23 10/31/23 Sertraline [Zoloft] 200 mg PO DAILY 10/31/23 10/31/23 Tamsulosin [Flomax] 0.4 mg PO DAILY 10/31/23 10/31/23 busPIRone [Buspar] 5 mg PO BID 10/31/23 10/31/23 - Allergies Allergies/Adverse Reactions: Allergies Allergy/AdvReac Type Severity Reaction Status Date / Time fluoxetine AdvReac Unknown Anxiety Verified 10/31/23 09:59 oxycodone HCl * AdvReac Unknown Hallucinati Verified 10/31/23 09:59 [From OxyContin] ons Review of Systems - Cardiovascular Cariovascular: reports: Exertional dyspnea - Gastrointestinal Gastrointestinal: reports: Constipation Exam - Vital Signs Reviewed Vital Signs: Yes Vital Signs: Vital Signs x48h Temp Pulse Resp BP Pulse Ox 11/01/23 12:50 37.1 C 75 12 95/60 95 11/01/23 12:31 36.8 C 73 12 113/58 L 98 11/01/23 11:51 36.8 C 73 16 101/53 L 97 11/01/23 07:45 36.9 C 76 18 103/60 95 - Physical Exam General Appearance: positive: No acute distress, Alert, Other (PALLOR) Eyes Bilateral: positive: Normal inspection, PERRL ENT: positive: ENT inspection nml, Pharynx nml, No signs of dehydration Neck: positive: Nml inspection, Thyroid nml, No JVD, Trachea midline Respiratory: positive: Chest non-tender, No respiratory distress, Breath sounds nml Cardiovascular: positive: No murmur, No gallop Peripheral Pulses: positive: 2+ Abdomen: positive: Non-tender, No organomegaly, Nml bowel sounds, No distention Rectal: positive: Other (Minimally decreased tone on SUE, no gross blood on SUE, no stool impaction on SUE) Back: positive: Nml inspection Skin: positive: Color nml, No rash, Warm, Dry, Pallor Extremities: positive: Non-tender, Full ROM, Nml appearance Neurologic/Psychiatric: positive: Oriented x3, Mood/affect nml Conclusion/Plan - Problem List (1) Positive fecal occult blood test Conclusion/Plan: 79yoM with symptomatic anemia (BLUM with hgb 6.7) and positive FOBT, transient reponse to 1U PRBC (7.8) however now requiring 2nd unit PRBC (for hgb 7.0). Admitted yesterday, soft BPs in 90s without tachycardia (on metoprolol), BP transiently improved to 110s but downtrended again with hgb drop after 1st unit; making adequate urine (no servin). ASA/Plavix have been dc'd, Eliquis has been held. Started on BID PPI. No gross upper or lower GIB observed. Discussed with hospitalist Dr. Bourgeois, will plan for endoscopy tomorrow to evaluate for potential source of GIB. - continue transfusion and serial H&H checks per hospitalist - continue BID PPI - continue to hold Eliquis - split bowel prep ordered to be started now - clear liquid diet now, NPO at midnight - EGD and Colonoscopy tomorrow at 0800 Rachael Bourgeois, DO CE General Surgeon - Lab Results Lab results reviewed: Yes Fish Bones: 11/01/23 05:22 10/31/23 09:56 - Diagnostic Imaging Results Diagnostic Imaging Results: positive: Final report reviewed, See rad report Diagnostic Imaging Results Comments: CT Abd/Pel [id number] with IV contrast - no significant findings in abdomen to account for GIB; diverticulosis without diverticulitis noted.
[2023-11-01] MEDS: PEG 3350/NA SULF,BICARB,CL/KCL 4,000 ML BOTTLE PO SCH (15:41)
[2023-11-01] MEDS: PANTOPRAZOLE 40 MG VIAL IVP SCH (15:53)
[2023-11-01 17:56] LABS: HCT - HEMATOCRIT 28.3 % (42.0-52.0); HGB - HEMOGLOBIN 8.4 g/dL (14.0-18.0)
[2023-11-01] MEDS: BISACODYL 10 MG SUPP PR SCH (19:30)
[2023-11-02] MEDS ORDERED: LIDOCAINE-PF 2% 10 ML AMP SUBQ ONE (07:35)
[2023-11-02] MEDS ORDERED: PROPOFOL 500 MG/50 ML 500 MG/50 ML VIAL ONE (07:36)
[2023-11-02 07:51] LABS: HCT - HEMATOCRIT 27.7 % (42.0-52.0); HGB - HEMOGLOBIN 8.4 g/dL (14.0-18.0)
--- NOTE | 2023-11-02 07:57 | ANESTHESIA ---
Pre-Anesthesia VS, & Labs - Diagnosis GI bleed - Procedure EGD, colonoscopy Vital Signs: Temp Pulse Resp BP Pulse Ox O2 Flow Rate 36.5 C 79 16 132/71 H 95 11/02/23 05:46 11/02/23 05:46 11/02/23 05:46 11/02/23 05:46 11/02/23 05:46 Height: 6 ft Weight (kg): 72 kg Body Mass Index: 21.5 BMI Classification: Normal - NPO >8 hours - Lab Results Current Lab Results: Laboratory Tests 11/01/23 15:53: Hgb 8.4 L, Hct 28.3 L 11/01/23 05:22: WBC 7.6, RBC 3.08 L, Hgb 7.0 L*, Hct 23.5 L, MCV 76.3 L, MCH 22.7 L, MCHC 29.8 L, RDW 17.4 H, Plt Count 197, MPV 11.0, Neut # (Auto) 5.2, Lymph # (Auto) 0.9 L, [place] # (Auto) 0.9, Eos # (Auto) 0.5, Baso # (Auto) 0.0, Absolute Nucleated RBC 0.00, Nucleated RBC % 0.0 10/31/23 17:40: Carcinoembryonic Ag 2.9 10/31/23 17:40: WBC 6.7, RBC 3.48 L, Hgb 7.8 L, Hct 26.9 L, MCV 77.3 L, MCH 22.4 L, MCHC 29.0 L, RDW 17.3 H, Plt Count 222, MPV 10.4 10/31/23 10:03: Blood Type Recheck O POSITIVE 10/31/23 09:56: Sodium 136, Potassium 4.3, Chloride 102, Carbon Dioxide 29, Anion Gap 5.0 L, BUN 26 H, Creatinine 1.1, Estimated GFR (MDRD) 65 L, Glucose 101, Calcium 9.1, Magnesium 2.0, Iron < 10 L, TIBC 410, % Saturation TNP, Transferrin 293, Total Bilirubin 0.4, AST 19, ALT 9 L, Alkaline Phosphatase 74, Total Protein 7.0, Albumin 4.0, Globulin 3.0, Albumin/Globulin Ratio 1.3, Lipase 24, Vitamin B12 288, Folate 16.9 10/31/23 09:56: WBC 7.2, RBC 3.17 L, Hgb 6.7 L*, Hct 23.7 L, MCV 74.8 L, MCH 21.1 L, MCHC 28.3 L, RDW 16.6 H, Plt Count 234, MPV 10.7, Neut # (Auto) 5.4, Lymph # (Auto) 0.6 L, [place] # (Auto) 0.7, Eos # (Auto) 0.4, Baso # (Auto) 0.0, Absolute Nucleated RBC 0.00, Nucleated RBC % 0.0 10/31/23 09:56: Blood Type O POSITIVE, Antibody Screen NEGATIVE, Crossmatch IS Only See Detail Fish Bones: 11/02/23 07:45 10/31/23 09:56 Home Medications and Allergies Home Medications: Ambulatory Orders Apixaban [Eliquis] 5 mg PO BID 10/31/23 Baclofen 10 mg PO TID PRN 10/31/23 Clopidogrel [Plavix] 75 mg PO DAILY 10/31/23 Lisinopril [Zestril] 5 mg PO DAILY 10/31/23 Metoprolol Succinate [Toprol Xl] 25 mg PO DAILY 10/31/23 QUEtiapine [SEROquel] 12.5 mg PO DAILY 10/31/23 Sertraline [Zoloft] 200 mg PO DAILY 10/31/23 Tamsulosin [Flomax] 0.4 mg PO DAILY 10/31/23 busPIRone [Buspar] 5 mg PO BID 10/31/23 Active Medications Acetaminophen (Acetaminophen 325 Mg Tablet) 650 mg PO Q4HR PRN PRN Reason: Pain 1 to 4, or Fever Atorvastatin Calcium (Atorvastatin 40 Mg Tablet) 80 mg PO DAILY [facility] Last Admin: 11/01/23 08:21 Dose: 80 mg Baclofen (Baclofen 10 Mg Tablet) 10 mg PO TID PRN PRN Reason: Hiccups Buspirone HCl (Buspirone 5 Mg Tablet) 5 mg PO BID [facility] Last Admin: 11/01/23 21:08 Dose: 5 mg Docusate Sodium (Docusate Sodium 250 Mg Capsule) 250 - 500 mg PO DAILY [facility] Last Admin: 11/01/23 10:42 Dose: 250 mg Duloxetine HCl (Duloxetine 30 Mg Capsule) 60 mg PO BID [facility] Last Admin: 11/01/23 21:07 Dose: 60 mg Levetiracetam (Levetiracetam 250 Mg Tablet) 750 mg PO BID [facility] Last Admin: 11/01/23 21:08 Dose: 750 mg Lisinopril (Lisinopril 5 Mg Tablet) 5 mg PO DAILY [facility] Last Admin: 11/01/23 08:23 Dose: 5 mg Metoprolol Succinate (Metoprolol Succinate 25 Mg Tablet) 25 mg PO DAILY [facility] Last Admin: 11/01/23 19:47 Dose: Not Given Ondansetron HCl (Ondansetron Odt 4 Mg Tablet) 4 mg TL Q6HR PRN PRN Reason: Nausea / Vomiting Ondansetron HCl (Ondansetron 4 Mg/2 Ml Vial) 4 mg IVP Q6HR PRN PRN Reason: Nausea / Vomiting Pantoprazole Sodium (Pantoprazole 40 Mg Vial) 40 mg IVP QDAC [facility] Last Admin: 11/02/23 06:16 Dose: 40 mg Quetiapine Fumarate (Quetiapine 25 Mg Tablet) 12.5 mg PO DAILY [facility] Last Admin: 11/01/23 08:22 Dose: 12.5 mg Quetiapine Fumarate (Quetiapine 25 Mg Tablet) 100 mg PO QPM [facility] Last Admin: 11/01/23 21:07 Dose: 100 mg Sertraline HCl (Sertraline 50 Mg Tablet) 200 mg PO DAILY [facility] Last Admin: 11/01/23 08:23 Dose: 200 mg Sodium Chloride (Sodium Chloride Flush 0.9% 10 Ml Syringe) 10 ml IVP PRN PRN PRN Reason: NEEDED PER PROVIDER ORDERS Last Admin: 10/31/23 14:53 Dose: 10 ml Sodium Chloride (Sodium Chloride Flush 0.9% 10 Ml Syringe) 10 ml IVP 0100,0900 ,1700 [facility] Last Admin: 11/02/23 00:03 Dose: 10 ml Tamsulosin HCl (Tamsulosin 0.4 Mg Capsule) 0.4 mg PO DAILY [facility] Last Admin: 11/01/23 08:22 Dose: 0.4 mg Temazepam (Temazepam 15 Mg Capsule) 15 mg PO QPM PRN PRN Reason: Insomnia Atorvastatin Calcium 80 mg PO DAILY 11/18/15 Levetiracetam [Keppra] 750 mg PO BID 11/18/15 Pantoprazole [Protonix] 20 mg PO BID 11/07/21 DULoxetine [Cymbalta] 60 mg PO BID 06/24/22 QUEtiapine [SEROquel] 100 mg PO QPM 06/24/22 Apixaban [Eliquis] 5 mg PO BID 10/31/23 Baclofen 10 mg PO TID PRN 10/31/23 Clopidogrel [Plavix] 75 mg PO DAILY 10/31/23 Lisinopril [Zestril] 5 mg PO DAILY 10/31/23 Metoprolol Succinate [Toprol Xl] 25 mg PO DAILY 10/31/23 QUEtiapine [SEROquel] 12.5 mg PO DAILY 10/31/23 Sertraline [Zoloft] 200 mg PO DAILY 10/31/23 Tamsulosin [Flomax] 0.4 mg PO DAILY 10/31/23 busPIRone [Buspar] 5 mg PO BID 10/31/23 Allergies/Adverse Reactions: Allergies Allergy/AdvReac Type Severity Reaction Status Date / Time fluoxetine AdvReac Unknown Anxiety Verified 10/31/23 09:59 oxycodone HCl * AdvReac Unknown Hallucinati Verified 10/31/23 09:59 [From OxyContin] ons Anes History & Medical History - Anesthetic History Anesthesia Complications: reports: No previous complications - Medical History Cardiovascular: reports: Hypertension, High cholesterol, [place], Atrial fibrillation, Other Pulmonary: reports: None Gastrointestinal: reports: GERD, Hiatal hernia Urinary: reports: None Neuro: reports: Seizure disorder Musculoskeletal: reports: None Endocrine/Autoimmune: reports: None Blood Disorders: reports: None Skin: reports: None Smoking Status: Current every day smoker (vapes) Other Past Medical History: Diverticulosis - Surgical History General: reports: Other (Laparoscopic incisions consistent with TEP inguinal hernia repair, however patient does not recall surgery.) Cardiothoracic: reports: Coronary stent Exam General: Alert, Oriented x3 Dental: WNL, Poor dentition Mouth Opening: Greater than 4 Fingerbreadths Neck Mobility: Normal Mallampati classification: I Thyromental Distance: greater than 6 cm Respiratory: Lungs clear Cardiovascular: Regular rate Plan Anesthesia Type: Total IV Consent for Procedure(s) Verified and Reviewed: Yes Code Status: Attempt Resuscitation ASA classification: 4-Incapacitating disease Is this case an emergency?: Yes
--- NOTE | 2023-11-02 08:04 | PROVIDER PROGRESS NOTE ---
Subjective - General Admit Date: 10/31/23 - Other Other Information/Narrative: Hgb increased to 8.4 from 7.0 yesterday afternoon after 2nd unit PRBC. Overnight HDN/afebrile, SBP up to 130s from 90s, no complaints or acute events. This morning Hgb stable again at 8.4. Completed colonoscopy prep and able to drink all golytely, endorses not completely clear BM as of this morning. No abdominal pain, no nausea. Objective - Patient Data Vital Signs: Vital Signs x48h Temp Pulse Resp BP Pulse Ox 11/02/23 05:46 36.5 C 79 16 132/71 H 95 Weight: Weight 10/31/23 11/01/23 11/02/23 23:59 23:59 23:59 Weight (kg) 72 kg 72 kg Intake & Output: Intake and Output Totals x24h 10/31/23 11/01/23 11/02/23 23:59 23:59 23:59 Intake Total 790 3160 Output Total 400 Balance 390 3160 - Lab Results Lab Results: 11/02/23 07:45 10/31/23 09:56 Other Lab Results: Lab Results x24hrs 11/02/23 11/01/23 10/31/23 Range/Units 07:45 15:53 09:56 Hgb 8.4 L 8.4 L (14.0-18.0) g/dL Hct 27.7 L 28.3 L (42.0-52.0) % Blood Type O POSITIVE Antibody Screen NEGATIVE Crossmatch IS Only See Detail - Current Medications Current Medications: Current Medications Generic Name Dose Route Start Last Admin Trade Name Liset PRN Reason Stop Dose Admin Atorvastatin Calcium 80 mg 11/01/23 09:00 11/01/23 08:21 Atorvastatin 40 Mg Tablet PO 80 mg DAILY DOMENIC Administration Buspirone HCl 5 mg 10/31/23 21:00 11/01/23 21:08 Buspirone 5 Mg Tablet PO 5 mg BID DOMENIC Administration Docusate Sodium 250 - 500 mg 11/01/23 10:00 11/01/23 10:42 Docusate Sodium 250 Mg Capsule PO 250 mg DAILY DOMENIC Administration Duloxetine HCl 60 mg 10/31/23 21:00 11/01/23 21:07 Duloxetine 30 Mg Capsule PO 60 mg BID DOMENIC Administration Levetiracetam 750 mg 10/31/23 21:00 11/01/23 21:08 Levetiracetam 250 Mg Tablet PO 750 mg BID DOMENIC Administration Lisinopril 5 mg 11/01/23 09:00 11/01/23 08:23 Lisinopril 5 Mg Tablet PO 5 mg DAILY DOMENIC Administration Metoprolol Succinate 25 mg 11/01/23 09:00 11/01/23 19:47 Metoprolol Succinate 25 Mg Tablet PO Not Given DAILY DOMENIC Pantoprazole Sodium 40 mg 11/01/23 16:00 11/02/23 06:16 Pantoprazole 40 Mg Vial IVP 40 mg QDAC DOMENIC Administration Quetiapine Fumarate 12.5 mg 11/01/23 09:00 11/01/23 08:22 Quetiapine 25 Mg Tablet PO 12.5 mg DAILY DOMENIC Administration Quetiapine Fumarate 100 mg 10/31/23 21:00 11/01/23 21:07 Quetiapine 25 Mg Tablet PO 100 mg QPM DOMENIC Administration Sertraline HCl 200 mg 11/01/23 09:00 11/01/23 08:23 Sertraline 50 Mg Tablet PO 200 mg DAILY DOMENIC Administration Sodium Chloride 10 ml 10/31/23 13:33 10/31/23 14:53 Sodium Chloride Flush 0.9% 10 Ml Syringe IVP 10 ml PRN PRN Administration NEEDED PER PROVIDER ORDERS Sodium Chloride 10 ml 10/31/23 17:00 11/02/23 00:03 Sodium Chloride Flush 0.9% 10 Ml Syringe IVP 10 ml 0100,0900,1700 DOMENIC Administration Tamsulosin HCl 0.4 mg 11/01/23 09:00 11/01/23 08:22 Tamsulosin 0.4 Mg Capsule PO 0.4 mg DAILY DOMENIC Administration - Physical Exam General Appearance: positive: No acute distress, Alert Eyes Bilateral: positive: Normal inspection, PERRL Respiratory: positive: Chest non-tender, No respiratory distress, Breath sounds nml Abdomen: positive: Non-tender, No organomegaly, Nml bowel sounds, No distention ABX Reporting Has patient been on IV antibiotics over the past 48 hours?: No Impression/Plan - Problem List Problem List: HD3 for symptomatic anemia (BLUM and +FOBT), currently stabilized after 2U PRBC with normal hemodynamics and hgb 8.4. Has completed bowel prep and will proceed with EGD and Colonoscopy this morning to evaluate for potential GI source of anemia. Indications (identify and possibly treat bleeding source), alternatives (no endoscopy with risk of failing to identify bleeding source), and risks (pain, bleeding, perforation, need for further procedure or even surgery, risk of anesthesia to include TX, PE, CVA, dealth) discussed with patient. Consent on chart. Rachael Bourgeois DO, FACS General Surgeon
[2023-11-02] MEDS ORDERED: KETAMINE 200 MG/20 ML VIAL ONE (08:08)
[2023-11-02] MEDS ORDERED: ePHEDrine 50 MG/ML VIAL IVP ONE (09:08)
[2023-11-02] MEDS ORDERED: GLYCOPYRROLATE 1 MG/5 ML VIAL ONE (09:08)
[2023-11-02] MEDS ORDERED: PROPOFOL 200 MG/20 ML VIAL IVP ONE (09:20)
--- NOTE | 2023-11-02 10:22 | OPERATIVE REPORT ---
Operative Report - General Admit Date: 10/31/23 Procedure Date: 11/02/23 Planned Procedure: EGD & Colonoscopy Pre-Op Diagnosis: Anemia, + FOBT Procedure Performed: EGD & COLONOSCOPY Post Op Diagnosis: Gastric polyp, colonic polyps (cecal, descending) - Procedure Note Primary Surgeon: Rachael Bourgeois DO Anesthesia Provider: Barbra GONZALEZ CRNA Anesthesia Technique: Moderate sedation Estimated Blood Loss (mL): 2 Findings: EGD: Very mild antral gastritis, single gastric body polyp (biopsied), moderate hiatal hernia type III (DH@ 43cm, Z line 38cm), random antral biopsies taken. Ava: Two adjacent polyps in descending colon (<1cm each, both biopsied); single cecal polyp <1cm (biopsied). Otherwise normal endoscopies, no obvious source of GIB identified on upper or lower endoscopy. Complications: None - Other Other Information/Narrative: The patient was positioned in the lateral decubitus position in the operating room and moderate sedation was administered by the CHAIRMAN OF THE BOARD after a timeout was performed. The upper endoscope was inserted through the mouth to the 2nd portion of the duodenum, withdrawn and retroflexed to fully inspect the upper GI tract, with findings and biopsies as above. The stomach was decompressed and the endoscope removed. A separate colonoscope was then inserted through the anus and advanced to the cecum, which was verified by the AO. The prep quality was poor, there was substantial debris in the colon. The scope was slowly withdrawn inspecting the entire colonic mucosa including a retroflex at the rectum, with findings and biopsies as above. The rectum was decompressed and the scope withdrawn. No obvious source of GI bleed was identified. The patient tolerated the procedure well, there were no complications.
--- NOTE | 2023-11-02 10:41 | ANESTHESIA POST OP EVALUATION ---
Anesthesia Post Eval - Post Anesthesia Eval Vitals: Last Vital Signs Temp 36.3 C L 11/02/23 10:17 Pulse 70 11/02/23 10:17 Resp 16 11/02/23 10:17 BP 90/60 11/02/23 10:17 Pulse Ox 96 11/02/23 10:17 O2 Flow Rate CV Function Including HR & BP: Stable Pain Control: Satisfactory Nausea & Vomiting: Negative Mental Status: Baseline Respiratory Status: Airway Patent Hydration Status: Satisfactory Anesthesia Complications: None
--- NOTE | 2023-11-02 12:06 | PROVIDER PROGRESS NOTE ---
Subjective - Prog Note Date Prog Note Date: 11/02/23 Prog Note Time: 12:00 - Subjective Pt reports feeling: No change (Pt alert and oriented post EGD and Colonoscopy procedure this AM. Denies any pain, SOB, abd pain, N/V/D.) Objective - Vital Signs/Intake & Output Vital Signs: Vital Signs x48h Temp Pulse Pulse Resp BP BP Pulse Ox 11/02/23 10:45 68 14 96/59 L 96 11/02/23 10:17 36.3 C L 70 16 90/60 96 11/02/23 10:08 36.3 C L 72 18 92/57 L 97 11/02/23 05:46 36.5 C 79 16 132/71 H 95 Intake & Output: Intake & Output 10/30/23 10/31/23 11/01/23 11/02/23 23:59 23:59 23:59 23:59 Intake Total 790 3160 Output Total 400 Balance 390 3160 - Objective General Appearance: positive: No acute distress Eyes Bilateral: positive: EOMI ENT: positive: ENT inspection nml Neck: positive: Nml inspection Respiratory: positive: Chest non-tender, No respiratory distress, Breath sounds nml Cardiovascular: positive: Systolic murmur Skin: positive: No rash, Warm, Dry. negative: Cyanosis Extremities: positive: Non-tender Neurologic/Psychiatric: positive: Oriented x3 - Lab Results Fish Bones: 11/02/23 07:45 10/31/23 09:56 Other Labs: Lab Results x24hrs 11/02/23 11/01/23 10/31/23 Range/Units 07:45 15:53 09:56 Hgb 8.4 L 8.4 L (14.0-18.0) g/dL Hct 27.7 L 28.3 L (42.0-52.0) % Blood Type O POSITIVE Antibody Screen NEGATIVE Crossmatch IS Only See Detail Assessment/Plan - Problem List (1) Anemia Impression: Anemia 2 weeks of BLUM, blood work at PCP's office showed HgB of 6.4. Labs here 10-31-23 showed HgB of 6.7, HCT 23.7, MCV 74.8, RDW 16.6, MCHC 28.3. Pt's stool positive for occult blood and (-) for H.Pylori. 1 unit of RBC's has been administered in ICU w/o complications. CT of abd/pelvis showed no significant findings. Vitals stable. Pt feeling well in room. No light headedness, dizziness, nausea, CP or SOB. Has been maintaining appetite. 11-01-23 HgB this morning 7.0. Last night was 7.8 after 1 transfusion. Per nurse pt able to walk to bathroom this am without walker or assistance. Will transfuse second unit today. Occupational Health Physiotherapist consult, advised to stop ASA and plavix during stay. Cont eliquis after discharge. 11-02-23. HgB 8.4 EGD and colonoscopy done by Dr. Bourgeois. EGD: Very mild antral gastritis, single gastric body polyp (biopsied), moderate hiatal hernia type III (DH@ 43cm, Z line 38cm), random antral biopsies taken. Presto: Two adjacent polyps in descending colon (<1cm each, both biopsied); single cecal polyp <1cm (biopsied). Otherwise normal endoscopies, no obvious source of GIB identified on upper or lower endoscopy. Plan: -Serial H&H ordered. -Start eliquis -Consider repeat out pt EGD, Colonoscopy. -Consider small bowel follow through. -Repeat guaiac test. (2) Dyspnea on exertion Impression: (2) Dyspnea on exertion Impression: 2 weeks of BLUM at home, unable to walk short distances which is not normal for the patient. Pt stable here. As above 1 unit of RBC's administered for iron deficient anemia. Pt able to walk to bathroom w/o walker or assistance, no CP or SOB while doing so. 11-01-23: No CP or SOB when ambulating to the bathroom this morning. As above another unit of RBC's needed today. 11-02-23: NAD, denies any SOB, CP, N/V/D. Lung sounds clear.
--- NOTE | 2023-11-02 13:25 | Discharge Plan ---
Discharge Plan Problem Reviewed?: Yes Disposition: 01 Home, Self Care Condition: Stable Diet: Regular Shower Restrictions: No Driving Restrictions: Yes (no driving) Health Concerns: You came to the hospital because of anemia. You had gone to see your doctor for weakness and shortness of breath and they found to be severely anemic. So they asked you to come to the emergency room. In the emergency room you had a slightly low blood pressure, and you were still very anemic. They checked your stool because anemia can sometimes come from losing blood in your GI tract. Your stool did have trace amounts of blood in it. We transfused you 2 units of blood to make sure that your anemia improved. A normal amount of blood in the man is 14 g of hemoglobin. When you were admitted you were 6.7. After transfusion of 2 units you are now 8.4. We have given you a n infusion of iron, and have started you on iron tablets. In the next few weeks, your anemia will get better and better on its own with the use of iron. You also underwent an upper and lower endoscopy to look for sources of bleeding in your stomach or colon. You have polyps in your stomach and polyps in your colon but no source of bleeding was seen. Since your blood work is stable, blood pressure is stable, and you are doing well, you feel that you can go home and want to go home. . Plan of Treatment: I spoke to your de ionizer operator, Dr. Villagomez, and he wants you to stop the Plavix. You cannot take anything like aspirin, Aleve, Motrin, Celebrex, ibuprofen, Naprosyn, or Voltaren. The only [id number] pain medicine or anti- inflammatory medicine you can take is Tylenol. Please continue taking Protonix, a stomach acid reducing drug, indefinitely. Dr. Villagomez would like you to resume your Eliquis. There is a chance that you may have anemia again. If you do have anemia again, your primary care provider will need to send you to gastroenterology specialist for more studies of your bowel and stomach. For instance they may do something called a small bowel follow- through or they may do a video endoscopy to look at your small bowel to see if your small bowel may be the source of bleeding. You will have to stop your Eliquis. If you do have to stop your Eliquis, Dr. Villagomez would like to see you for something called a Watchman procedure. The reason you take Eliquis is to reduce your risk of stroke from atrial fibrillation. If you cannot take a blood thinner, your risk of stroke goes up, and a Watchman procedure would solve that problem. Care Goals: To go back to a steady state where you do not have to worry about anemia or bleeding Assessment: Patient and have memory loss. Patient's states that they rely on their sons girlfriend to make sure he is on the correct medicine. No Smoking: If you smoke, Please STOP! Call for help.
--- NOTE | 2023-11-02 13:26 | DISCHARGE SUMMARY ---
Discharge Summary Admit Date: 10/31/23 Discharge Date: 11/02/23 Discharging Provider: Dr. Caitlyn Bishop Code Status: Attempt Resuscitation Condition at Discharge: Stable Discharge Disposition: 01 Home, Self Care - DIAGNOSES Admission Diagnoses: Anemia 2 weeks of BLUM, blood work at PCP's office showed HgB of 6.4. Pt's stool positive for occult blood and (-) for H.Pylori. 2 unit of RBC's has been administered in ICU w/o complications. CT of abd/pelvis showed no significant findings. Vitals stable. Pt feeling well in room. No light headedness, dizziness , nausea, CP or SOB. Has been maintaining appetite. 11-02-23. HgB 8.4 EGD and colonoscopy done by Dr. Bourgeois. EGD: Very mild antral gastritis, single gastric body polyp (biopsied), moderate hiatal hernia, random antral biopsies taken. Lane: Two adjacent polyps in descending colon (both biopsied); single cecal polyp <1cm (biopsied). Otherwise normal endoscopies, no obvious source of GIB identified on upper or lower endoscopy. 11-01-23 HgB this morning 7.0. Last night was 7.8 after 1 transfusion. Per nurse pt able to walk to bathroom this am without walker or assistance. Will transfuse second unit today. Shelf Stocker consult, advised to stop ASA and plavix during stay. Cont eliquis after discharge. 10-31-23 labs showed HgB of 6.7, HCT 23.7, MCV 74.8, RDW 16.6, MCHC 28.3. Plan: -Pt stable, able to be discharged. -Start eliquis, stop plavix -avoid NSAID, cont PPI. -Consider repeat out pt EGD, Colonoscopy. -Consider small bowel follow through study. Dyspnea on exertion Impression: 2 weeks of BLUM at home, unable to walk short distances which is not normal for the patient. Pt stable here. As above 1 unit of RBC's administered for iron deficient anemia. Pt able to walk to bathroom w/o walker or assistance, no CP or SOB while doing so. 11-01-23: No CP or SOB when ambulating to the bathroom this morning. As above another unit of RBC's needed today. 11-02-23: NAD, denies any SOB, CP, N/V/D. Lung sounds clear. BLUM resolved. - HPI History of Present Illness: 78 YOM with a Hx of [place], HTN, HDL, anxiety and depression presented to the ER for BLUM which has been going on for two weeks now, feels short of breath just walking to the fridge and back which is not normal for him. Takes him about 5-10 min of rest after he walks to feel back to normal. Denies any associated chest pain, he does states he gets a "deep feeling" in his chest but denies discomfort. Pt was seen at PCP's office yesterday and was found to have a HgB of 6.4, told to go to the ER which requested admission after a repeat HgB of 6.7 and Iron of < 10. Pt denies any chest, shoulder or jaw pain associated with his BLUM. No syncope, light headedness, dizziness, fever, chills, sweats, N/V/D, abd pain. Last BM yesterday, no dark stools or hematochezia. He reports Hx of nicotine vaping, goes through one vape pen every couple of weeks. No alcohol. - HOSPITAL COURSE Hospital Course: Pt presented with 2 weeks of BLUM, found to be anemic with a HgB of 6.7 in the ER, transfused 2 units of blood, final HgB here was 8.4. Pt was also transfused a unit of iron due to iron level being 21. EGD and colonoscopy did not find a bleeding source here. Pt overall asymptomatic during stay, vitals remained stable, no difficulty ambulating. Pt to restart eliquis at home and stop plavix per manufacturer, avoid NSAIDS and cont PPI. - ALLERGIES Allergies/Adverse Reactions: Allergies Allergy/AdvReac Type Severity Reaction Status Date / Time fluoxetine AdvReac Unknown Anxiety Verified 10/31/23 09:59 oxycodone HCl * AdvReac Unknown Hallucinati Verified 10/31/23 09:59 [From OxyContin] ons - MEDICATIONS Home Medications: Ambulatory Orders Medication Instructions Recorded Confirmed Atorvastatin Calcium 80 mg PO DAILY 11/18/15 10/31/23 Levetiracetam [Keppra] 750 mg PO BID 11/18/15 10/31/23 Pantoprazole [Protonix] 20 mg PO BID 11/07/21 10/31/23 DULoxetine [Cymbalta] 60 mg PO BID 06/24/22 10/31/23 QUEtiapine [SEROquel] 100 mg PO QPM 06/24/22 10/31/23 Apixaban [Eliquis] 5 mg PO BID 10/31/23 10/31/23 Baclofen 10 mg PO TID PRN 10/31/23 10/31/23 Lisinopril [Zestril] 5 mg PO DAILY 10/31/23 10/31/23 Metoprolol Succinate [Toprol Xl] 25 mg PO DAILY 10/31/23 10/31/23 QUEtiapine [SEROquel] 12.5 mg PO DAILY 10/31/23 10/31/23 Sertraline [Zoloft] 200 mg PO DAILY 10/31/23 10/31/23 Tamsulosin [Flomax] 0.4 mg PO DAILY 10/31/23 10/31/23 busPIRone [Buspar] 5 mg PO BID 10/31/23 10/31/23 Ferrous Gluconate 324 mg PO DAILY #30 tablet 11/02/23 - PHYSICAL EXAM AT DISCHARGE General Appearance: positive: No acute distress, Alert Eyes Bilateral: positive: PERRL, EOMI ENT: positive: ENT inspection nml Neck: positive: Nml inspection Respiratory: positive: Chest non-tender, No respiratory distress, Breath sounds nml Cardiovascular: positive: Systolic murmur Peripheral Pulses: positive: 2+ Abdomen: positive: Non-tender, No distention Skin: positive: No rash, Warm, Dry, Cyanosis Extremities: positive: Non-tender Neurologic/Psychiatric: positive: Oriented x3, Mood/affect nml - LABS Result Diagrams: 11/02/23 07:45 10/31/23 09:56 - TIME SPENT Time Spent in Discharge (Minutes): 45
[2023-11-02 14:10] VITALS: BP 116/65; O2SAT 99
[2023-11-02] MEDS ORDERED: QUEtiapine 100 MG TABLET PO SCH (21:00)
== END 2023-11-02 14:50 | disposition home or self-care (01) ==
LOC: ED 08:50 → MS2 13:33
PROVIDERS: ADMIT Specialist; ATTEND Specialist
DX: D50.9 Iron deficiency anemia, unspecified (principal); R19.5 Other fecal abnormalities; K31.7 Polyp of stomach and duodenum; D12.0 Benign neoplasm of cecum; K63.5 Polyp of colon; K29.50 Unspecified chronic gastritis without bleeding; K44.9 Diaphragmatic hernia without obstruction or gangrene; I48.91 Unspecified atrial fibrillation; G40.909 Epilepsy, unspecified, not intractable, without status epilepticus; K21.9 Gastro-esophageal reflux disease without esophagitis; I10 Essential (primary) hypertension; E78.00 Pure hypercholesterolemia, unspecified; I25.2 Old myocardial infarction; F17.290 Nicotine dependence, other tobacco product, uncomplicated; F32.A Depression, unspecified; F41.9 Anxiety disorder, unspecified; Z79.02 Long term (current) use of antithrombotics/antiplatelets; Z86.711 Personal history of pulmonary embolism
CPT/HCPCS: 36415; 36430; 43270; 45388; 74177; 80053; 82272; 82378; 82607; 82746; 83540; 83690; 83735; 84466; 85014; 85018; 85025; 85027; 86850; 86900; 86901; 86920; 87338; 93005; 96365; 96366; 96372; 96375; 96376; 99284; 99285; A9270; G0378; J2916; J3490; P9016; Q9967

== ENCOUNTER 2024-04-24 14:00 | Outpatient (CLI) | payer OTHER ==
--- NOTE | 2024-04-24 17:17 | DEXA Report ---
PROCEDURE: Dexa Spine and/or Hip INDICATIONS: FEMUR FX TECHNIQUE: Dual energy x-ray absorptiometry (DXA) was performed on a [employer] System. Regions measur ed are the AP Spine, femoral neck, and if needed forearm. COMPARISON: None FINDINGS: Lumbar Spine (L1-L3): Bone Mineral Density: 1.370 g/cm/cm,T score: 1.3. Normal. Left Femoral Neck: Bone Mineral Density: 0.834 g/cm/cm, T score: -1.8. Left Hip: Bone Mineral Density: 0.812 g/cm/cm,T score: -2. Osteopenia FRAX risk factors: None given. 10 year risk of major osteoporotic fracture: 8.4% major osteoporotic fracture = hip, clinical vertebral, proximal humerus, distal forearm 10 year risk of hip fracture: 3.1% (T score greater or equal to -1.0: NORMAL) (T score from -1.1 to -2.4: OSTEOPENIA) (T score less than or equal to -2.5 to: OSTEOPOROSIS) Impression: 1.By WHO criteria, this patient has low bone density (osteopenia). 2.The 10 year risk of major osteoporotic fracture is 8.4% and of a hip fracture is 3.1%. Patients with diagnosis of osteoporosis or osteopenia should have regular bone mineral density assess ment. For those eligible for Medicare, routine testing is allowed once every 2 years. Testing frequ ency can be increased for patients who have rapidly progressing disease or for those who are receivin g medical therapy to restore bone mass. Reviewed by: Tisha Escalante MD on 04/24/2024 5:15 PM PDT Approved by: Tisha Escalante MD on 04/24/2024 5:15 PM PDT Station ID: [id number]
== END 2024-04-24 14:01 | disposition home or self-care (01) ==
LOC: DI 14:00
PROVIDERS: ATTEND Nurse Practitioner Family
DX: S72.001A Fracture of unspecified part of neck of right femur, initial encounter for closed fracture (principal); M85.89 Other specified disorders of bone density and structure, multiple sites